=== PATIENT | male | born 1995 | race African-American/Black ===

== ENCOUNTER 2020-01-27 00:54 | Emergency (ER) | payer OTHER, SELFPAY ==
--- NOTE | ~2020-01-27 | CT_ITS ---
EXAMINATION: CT brain wo con DATE: 01/27/2020 03:39 INDICATION: Numbness TECHNIQUE: Computed tomography (CT) of the head was performed without intravenous contrast. Sagittal and coronal reconstructions were performed. The mA was adjusted according to patient size. Iterative reconstruction technique was employed. The dose-length product was 681.00 mGy-cm. COMPARISON: None FINDINGS: Posterior parietal scalp hematoma. No fracture. No acute intracranial hemorrhage, acute infarction or abnormal extra axial fluid collection. Ventricles are normal and symmetric. No mass/mass effect. The orbits, paranasal sinuses and mastoid air cells are normal. IMPRESSION: 1. Normal brain. No acute intracranial process. Reviewed, dictated and finalized at location A.
[2020-01-27 00:58] VITALS: BP 162/99; PULSE 100; RESP 18; TEMP 36.8; O2SAT 97
[2020-01-27 01:27] LABS: Basophils Percent Auto 0.7 % (0.2-1.2); Eosinophils Absolute Auto 0.1 K/mm3 (0-0.3); Eosinophils Percent Auto 2.7 % (0-4.4); Hematocrit 43.1 % (42.0-52.0); Hemoglobin 14.5 g/dL (14.0-18.0); Immature Granulocyte Absolute 0.01 K/mm3 (0.00-0.031); Immature Granulocyte Percent A 0.2 % (0-0.5); Lymphocytes Absolute Auto 0.93 K/mm3 (0.9-3.2); Mean Corpuscular HGB Conc 33.6 g/dl (32-36); Mean Corpuscular Hemoglobin 27.1 pg (26-34); Mean Corpuscular Volume 80.4 fl (80-100); Mean Platelet Volume 11.2 fl (7.4-10.4); Monocytes Absolute Auto 0.5 K/mm3 (0.1-0.6); Monocytes Percent Auto 12.1 % (2.6-8.5); Neutrophils Absolute Auto 2.5 K/mm3 (1.3-6.7); Neutrophils Percent Auto 61.3 % (45.5-73.1); Platelet Count Result 288 k/mm3 (150-375); Red Blood Count 5.36 M/mm3 (4.6-6.20)
--- NOTE | 2020-01-27 01:27 | ED.GENADULT ---
HPI - General Adult General Chief complaint: Extremity Problem,Nontraumatic Stated complaint: Legs tingling and cold Time Seen by Provider: 01/27/20 01:00 Source: RN notes reviewed History of Present Illness HPI narrative: Patient presents emergency department from home for bilateral leg tingling. Patient states starting approximately 10 PM tonight he began to have a tingling sensation in his bilateral lower extremities from the mid farrar down through his feet. He describes a feeling as a feeling of being cold. He states it does not feel like [id number]. He states they tried to place a cover over his legs but continued have the feeling. He denies any weakness of the legs he denies having any fevers or chills or recent illness chest pain shortness of breath abdominal pain back pain bowel or bladder incontinence or any other symptoms. He is able to ambulate with no difficulty and states he does still have feeling in the bilateral legs. Patient states he is a diabetic Related Data Allergies Allergy/AdvReac Type Severity Reaction Status Date / Time No Known Allergies Allergy Unverified 11/29/15 07:15 Review of Systems Review of Systems: Narrative: Gen.: Denies fevers or chills Eyes: Denies eye pain or visual change ENT: Denies congestion Respiratory: Denies shortness of breath or cough CV: Denies chest pain or palpitations GI: Denies abdominal pain nausea, emesis or diarrhea denies bowel or bladder incontinence Musculoskeletal: Denies back pain or muscle pain Neuro: See HPI Skin: Denies rash Except as documented, all other systems reviewed and negative [facility] Past Medical History Medical History (Updated 01/27/20 @ 06:06 by Ibrahima Kelly DO) Diabetes mellitus Social History Social History (Updated 01/27/20 @ 01:28 by Ibrahima Kelly DO) Smoking status: Never smoker Exam Narrative: Exam Narrative: APPEARANCE: No acute distress, nontoxic, resting in bed EYES: EOMI HEENT: Normocephalic, atraumatic, OMM RESPIRATORY: No respiratory distress Clear to auscultation bilaterally with no rhonchi wheezing or rales. CARDIOVASCULAR: Regular rate and rhythm without murmurs rubs or gallops. ABDOMINAL: Soft, nontender, nondistended, no rebound or guarding Back: No midline tenderness to palpation MUSCULOSKELETAl: Moves all extremities. No clubbing, cyanosis or edema. Bilateral dorsalis pedis pulse 2+ NEURO: Awake and alert. Following commands, speech normal, no focal deficits, pinprick sensation intact throughout the bilateral lower extremities with no change in sensation distally muscle strength 5 out of 5 in the bilateral lower extremities SKIN:: Warm, dry. No rashes lesions or abrasions PSYCHIATRIC: Normal affect/mood, Course Course Emergency Course: Discussed Dr. Rodriguez presentation and work-up. At this time feels patient may be discharged to follow-up as an outpatient Patient states symptoms have improved throughout stay in ED Discussed with patient results of workup and diagnosis. Discussed need for follow-up with primary care, proper use of medication, and reasons to return to the emergency department. Patient understands and agrees to current treatment plan Vital Signs Vital signs: Vital Signs Temperature 98.2 F 01/27/20 00:58 Pulse Rate 100 01/27/20 00:58 Respiratory Rate 18 01/27/20 00:58 Blood Pressure 162/99 H 01/27/20 00:58 Pulse Oximetry 97 01/27/20 00:58 Temperature 98.5 F 01/27/20 04:49 Pulse Rate 108 H 01/27/20 04:49 Respiratory Rate 16 01/27/20 04:49 Blood Pressure 130/73 01/27/20 04:49 Pulse Oximetry 100 01/27/20 04:49 Medical Decision Making Vital Signs Vital Signs: Vital Signs Temperature 98.2 F 01/27/20 00:58 Pulse Rate 100 01/27/20 00:58 Respiratory Rate 18 01/27/20 00:58 Blood Pressure 162/99 H 01/27/20 00:58 Pulse Oximetry 97 01/27/20 00:58 Temperature 98.5 F 01/27/20 04:49 Pulse Rate 108 H 01/27/20 04:49 Respiratory
[2020-01-27 01:42] LABS: Anion Gap 10 mmol/L (8-16); Blood Urea Nitrogen 11 mg/dL (9-20); Calcium 9.4 mg/dL (8.4-10.2); Carbon Dioxide 26 mmol/L (22-30); Chloride 104 mmol/L (98-107); Estimated CRCL calculation 101 ml/min; Estimated Glomerular Filt Rate > 60; Glucose 182 mg/dL (75-110); Magnesium 1.7 mg/dL (1.6-2.3); Sodium 140 mmol/L (137-145)
[2020-01-27 03:08] VITALS: BP 134/76; PULSE 110; RESP 18; O2SAT 97
--- NOTE | 2020-01-27 03:13 | PC.NURSE ---
Patient stated he is starting to have a slight FIERRO, ERP notified. Orders received.
[2020-01-27] MEDS: IBUPROFEN 600 MG TABLET PO (03:16)
--- NOTE | 2020-01-27 03:32 | PC.NURSE ---
Patient being taken to CT.
[2020-01-27 04:49] VITALS: BP 130/73; PULSE 108; RESP 16; TEMP 36.9; O2SAT 100
--- NOTE | 2020-01-27 05:19 | PC.NURSE ---
This nurse contacted CT in inquire about patient's CT results. Claudia in CT stated she had the scan sent to be read but is still waiting. Claudia stated that [facility] has had some difficulties today and is experiencing high volumes. Claudia stated that the patient's scan is still waiting to be read. ERP notified.
== END 2020-01-27 06:19 | disposition home or self-care (01) ==
PROVIDERS: Emergency Provider Emergency Medicine
DX: R20.2 Paresthesia of skin (principal); E11.9 Type 2 diabetes mellitus without complications
CPT/HCPCS: 36415; 70450; 80048; 83735; 85025; 99284; A9270

== ENCOUNTER 2020-01-27 21:27 | Emergency (ER) | payer OTHER, SELFPAY ==
--- NOTE | ~2020-01-27 | XR_ITS ---
XR chest 1V portable DATE: 01/27/2020 23:16 INDICATION: Midline chest pain, shortness of breath TECHNIQUE: Portable AP chest on 01/27/2020 at 2317 hours COMPARISON: 06/07/2016 PA and lateral chest FINDINGS: Heart size appears normal. The lungs appear clear of consolidation. No pleural effusion or pulmonary vascular congestion or pneumothorax. Included skeletal structures are unremarkable. IMPRESSION: No active disease Reviewed, dictated and finalized at location A. IMPRESSION: No active disease
[2020-01-27 21:33] VITALS: BP 160/107; PULSE 107; RESP 12; TEMP 38.4; O2SAT 100
--- NOTE | 2020-01-27 21:38 | ECG_ITS ---
Measurements Intervals [place] Rate: 106 P: 57 WV: 149 QRS: 111 QRSD: 93 T: -19 QT: 313 QTc: 417 Interpretive Statements SINUS TACHYCARDIA VENTRICULAR PREMATURE COMPLEX RIGHT AXIS DEVIATION NONSPECIFIC ST ELEVATION IN ANT/HIGH LAT LEADS BORDERLINE ST-T WAVE ABNORMALITY- INF/LAT LEADS ABNORMAL ECG Electronically Signed On 01-28-2020 7:02:33 CDT by Abdi Carpio D.O.
--- NOTE | 2020-01-27 21:47 | ED.SOB ---
HPI - SOB/Dyspnea General Chief Complaint: Shortness of Breath/Dyspnea Stated Complaint: Difficulty breathing, body aches Time Seen by Provider: 01/27/20 21:35 Source: patient Mode of arrival: ambulatory Limitations: no limitations History of Present Illness HPI Narrative: Patient is 24 years old -[place]ames[place] male presents with shortness of breath. Patient got up from sleep 2 hours ago then started walking and noticed that he had shortness of breath. Today patient was running fever up to 101.2, works as a [employer]ENT [employer] at [employer] [employer], got negative COVID-19 test 1-1/2-hour prior to arrival. Patient is telling me that they have 3 cases of positive COVID-19 at the [facility]. Patient was complaining of frontal headache yesterday which comes and goes. Patient denying any coughing, sore throat, new loss of taste or smell. Patient does not smoke, drinks daily, does not use drugs. Related Data Allergies Allergy/AdvReac Type Severity Reaction Status Date / Time No Known Allergies Allergy Unverified 11/29/15 07:15 Review of Systems Review of Systems: Narrative: CONSTITUTIONAL: Denies fever, chills, or sweats. EYES: Denies visual changes, redness, or discharge. ENT: Denies rhinorrhea, congestion, sore throat, or otalgia. CARDIOVASCULAR: Denies chest pain, palpitations, or edema. RESPIRATORY: Denies cough or dyspnea. GASTROINTESTINAL: Denies abdominal pain, nausea, vomiting, or diarrhea. GENITOURINARY: Denies dysuria or hematuria. SKIN: Denies rash or itching. MUSCULOSKELETAL: Denies back pain, joint pain, or myalgia. NEUROLOGIC: Denies headache, numbness, or weakness. PSYCHIATRIC: Denies anxiety or depression. PMFSH Past Medical History Medical History Diabetes mellitus Social History Social History Smoking status: Never smoker Gender identity (if verbalized by the patient): Male Exam Narrative: Exam Narrative: General appearance: Well-developed, well-nourished Skin: Normal color Head: Normocephalic, nontraumatic Eyes: Clear conjunctiva ENT: Oropharynx normal, ears normal, nose normal Neck: Supple, nontender Chest and respiratory: Airway patent, no respiratory distress, no accessory muscle use Heart: Regular rate/rhythm Abdomen: Soft, nontender, no organomegaly, quiet bowel sounds Vascular: Normal peripheral pulses, normal capillary refill. Musculoskeletal: Normal range of motion, nontender back Neurologic: Alert and oriented ?3, LAB ANIMAL TECHNICIAN is normal as tested, no gross motor deficit Course Course Emergency Course: Stable Vital Signs Vital signs: Vital Signs Temperature 38.4 C H 01/27/20 21:33 Pulse Rate 107 H 01/27/20 21:33 Respiratory Rate 12 01/27/20 21:33 Blood Pressure 160/107 H 01/27/20 21:33 Pulse Oximetry 100 01/27/20 21:33 Temperature 38.4 C H 01/27/20 21:33 Pulse Rate 107 H 01/27/20 21:33 Respiratory Rate 12 01/27/20 21:33 Blood Pressure 160/107 H 01/27/20 21:33 Pulse Oximetry 100 01/27/20 21:33 MDM - SOB/Dyspnea MDM Narrative Medical decision making narrative: Patient presents with shortness of breath that started 2-hour prior to arrival to the emergency room. Patient also is running fever. COVID-19 test was -1-1/2-hour prior to arrival to the emergency room. Patient symptoms consistent with viral infection. There is a possibility of false negative COVID-19 test today. Labs, chest x-ray, UA, IV fluid, Tylenol orally. Ordered. Blood work-up showed: Leukopenia which is consistent with viral infection, MAMIE which indicating dehydration, D-dimer within normal limit, EKG on arrival showed sinus tachyca
[2020-01-27 22:09] LABS: Basophils Percent Auto 0.5 % (0.2-1.2); Eosinophils Percent Auto 0.5 % (0-4.4); Hematocrit 43.2 % (42.0-52.0); Hemoglobin 14.5 g/dL (14.0-18.0); Immature Granulocyte Absolute 0.02 K/mm3 (0.00-0.031); Immature Granulocyte Percent A 0.5 % (0-0.5); Lymphocytes Absolute Auto 0.66 K/mm3 (0.9-3.2); Mean Corpuscular HGB Conc 33.6 g/dl (32-36); Mean Corpuscular Hemoglobin 27.3 pg (26-34); Mean Corpuscular Volume 81.4 fl (80-100); Mean Platelet Volume 11.7 fl (7.4-10.4); Monocytes Absolute Auto 0.7 K/mm3 (0.1-0.6); Monocytes Percent Auto 15.7 % (2.6-8.5); Neutrophils Absolute Auto 2.8 K/mm3 (1.3-6.7); Neutrophils Percent Auto 66.8 % (45.5-73.1); Platelet Count Result 268 k/mm3 (150-375); Red Blood Count 5.31 M/mm3 (4.6-6.20); Red Cell Distribution Width 13.2 % (11.5-14.5); White Blood Count 4.1 K/mm3 (4.5-10.0)
[2020-01-27] MEDS: ACETAMINOPHEN 500 MG TABLET 1000 MG PO (22:15)
[2020-01-27] MEDS: SODIUM CHLORIDE 0.9% IV 1,000 ML 999 ML IV CONT (22:16)
[2020-01-27 22:18] LABS: INR 1.1; Prothrombin Time 13.8 Seconds (11.1-14.7)
[2020-01-27 22:19] LABS: Partial Thromboplastin Time 31.1 SECONDS (22.3-36.8)
[2020-01-27 22:21] LABS: D Dimer 0.29 ug/mL (<0.48)
[2020-01-27 22:23] LABS: Alanine Aminotransferase 65 U/L (4-50); Alkaline Phosphatase 90 U/L (38-126); Anion Gap 11 mmol/L (8-16); Aspartate Amino Transferase 63 U/L (17-59); Bilirubin,Total 0.3 mg/dL (0.2-1.3); Blood Urea Nitrogen 15 mg/dL (9-20); CRP 0.7 mg/dL (<1.0); Calcium 9.2 mg/dL (8.4-10.2); Carbon Dioxide 25 mmol/L (22-30); Chloride 101 mmol/L (98-107); Estimated Glomerular Filt Rate > 60; Glucose 257 mg/dL (75-110); Potassium 4.3 mmol/L (3.4-5.0); Sodium 137 mmol/L (137-145)
[2020-01-27 22:28] LABS: Alveolar/Arterial O2 Gradient 30.4 mmHg; Base Excess ABG -1.6 mEq/l (+/-2.0); Fractional Inspired Oxygen 21 %; HCO3 ABG 20.2 mEq/l (22.0-26.0); Modified Allen's Test Pass; Oxygen Content ABG 19.4 %vol (16.0-22.0); Oxygen Saturation ABG 97.4 % (95.0-100.0); Oxyhemoglobin 96.1 % THb (90.0-100.0); PCO2 ABG 27.1 mmHg (35.0-45.0); PO2 ABG 86.9 mmHg (80.0-100.0); PO2 FiO2 Ratio Arterial Blood 4.14 %; Site Drawn RIGHT RADIAL; Total Hemoglobin 14.3 g/dL (12.0-18.0); pH ABG 7.491 (7.350-7.450)
[2020-01-27 22:29] LABS: Device ROOM AIR
[2020-01-27 22:32] LABS: NT Pro B Type Natriuretic Pept 58 PG/ML (5-100); Troponin I < 0.012 ng/mL (0.000-0.034)
[2020-01-27 23:46] VITALS: BP 154/96; PULSE 108; RESP 18; O2SAT 99
[2020-01-28 00:10] LABS: Add Urine Microscopic? YES; Appearance Urine Clear (Clear); Bacteria Urine Trace /hpf; Bilirubin Urine Negative (Negative); Blood Urine Negative (Negative); Color Urine Yellow (Yellow); Glucose Urine UA 2+ mg/dL (Negative); Ketones Urine 1+ mg/dL (Negative); Leukocyte Esterase Ur Negative LEU/UL (Negative); Mucus Urine Rare /lpf; Nitrate Urine Negative (Negative); Protein Urine 3+ mg/dL (Negative); Squamous Epithelial Cell Urine Occasional /hpf (Few)
[2020-01-28 01:08] VITALS: BP 118/68; PULSE 88; RESP 18; O2SAT 99
== END 2020-01-28 01:09 | disposition home or self-care (01) ==
PROVIDERS: Emergency Provider Emergency Medicine
DX: B34.9 Viral infection, unspecified (principal); Z20.828 Contact with and (suspected) exposure to other viral communicable diseases; E11.9 Type 2 diabetes mellitus without complications; R00.0 Tachycardia, unspecified; I49.3 Ventricular premature depolarization; R94.31 Abnormal electrocardiogram [ECG] [EKG]
CPT/HCPCS: 36415; 36600; 71045; 80053; 81001; 82805; 83605; 83880; 84484; 85025; 85380; 85610; 85730; 86140; 87804; 93005; 96360; 99284; A9270; J7030

== ENCOUNTER 2020-02-02 19:23 | Emergency (ER) | payer OTHER, SELFPAY ==
--- NOTE | ~2020-02-02 | CT_ITS ---
EXAMINATION: CT abdomen pelvis w con INDICATION: Abdominal pain and vomiting TECHNIQUE: Computed tomographic images of the abdomen and pelvis were obtained after the administrati on of 100 cc of Omnipaque 350 intravenous contrast. The dose-length product (DLP) was 1303.43 mGy-cm. Automated exposure control and iterative reconstruction technique were employed. COMPARISON: 01/02/2016 FINDINGS: There are patchy airspace opacities of the left lower lobe. A few scattered airspace opacit ies are also seen in the visualized right lower lobe. The heart size is normal. The liver is diffusel y low in attenuation when compared with the spleen, consistent with hepatic steatosis. The spleen, pa ncreas, gallbladder, and adrenal glands are normal. The kidneys are unremarkable. No pathologically e nlarged abdominal or pelvic lymph nodes are identified. There is no free intraperitoneal gas or evide nce of bowel obstruction. The appendix is normal. There is mild bladder wall thickening. A fat-contai luan umbilical hernia is noted. IMPRESSION: 1. Bilateral lower lobe pneumonia, left greater than right. 2. Diffuse hepatic steatosis. Reviewed, dictated and finalized at location A. TICS SPECIALIST
[2020-02-02 19:24] VITALS: BP 127/98; PULSE 125; RESP 15; TEMP 37.1; O2SAT 99
[2020-02-02 19:40] LABS: Basophils Percent Auto 0.4 % (0.2-1.2); Eosinophils Percent Auto 0.2 % (0-4.4); Hemoglobin 15.2 g/dL (12.0-15.0); Immature Granulocyte Absolute 0.02 K/mm3 (0.00-0.031); Immature Granulocyte Percent A 0.4 % (0-0.5); Lymphocytes Absolute Auto 1.23 K/mm3 (0.9-3.2); Lymphocytes Percent Auto 27.3 % (18.3-44.2); Mean Corpuscular HGB Conc 33.8 g/dl (32-36); Mean Corpuscular Hemoglobin 27.1 pg (26-34); Mean Corpuscular Volume 80.4 fl (80-100); Mean Platelet Volume 11.6 fl (7.4-10.4); Monocytes Absolute Auto 0.3 K/mm3 (0.1-0.6); Monocytes Percent Auto 7.6 % (2.6-8.5); Neutrophils Absolute Auto 2.9 K/mm3 (1.3-6.7); Neutrophils Percent Auto 64.1 % (45.5-73.1); Platelet Count Result 247 k/mm3 (150-375); Red Cell Distribution Width 13.1 % (11.5-14.5); White Blood Count 4.5 K/mm3 (4.5-10.0)
[2020-02-02 19:55] LABS: Alanine Aminotransferase 51 U/L (4-35); Alkaline Phosphatase 100 U/L (38-126); Anion Gap 10 mmol/L (8-16); Aspartate Amino Transferase 46 U/L (14-36); Bilirubin,Total 0.4 mg/dL (0.2-1.3); Blood Urea Nitrogen 12 mg/dL (7-17); Calcium 9.2 mg/dL (8.4-10.2); Carbon Dioxide 25 mmol/L (22-30); Chloride 102 mmol/L (98-107); Estimated Glomerular Filt Rate > 60; Glucose 298 mg/dL (65-105); Lipase 100 U/L (23-300); Potassium 4.3 mmol/L (3.4-5.0); Sodium 137 mmol/L (137-145)
[2020-02-02] MEDS: ONDANSETRON INJ 4 MG/2 ML VIAL IV PUSH (19:59)
[2020-02-02] MEDS: SODIUM CHLORIDE 0.9% IV 1,000 ML 999 ML IV CONT ×2 (20:00→21:42)
--- NOTE | 2020-02-02 20:30 | ED.NAVMDI ---
HPI - Nausea/Vomiting/Diarrhea General Chief complaint: Nausea/Vomiting/Diarrhea Stated complaint: vomiting Time Seen by Provider: 02/02/20 19:39 History of Present Illness HPI Narrative: Patient is a 24-year-old male who presents ER with nausea and vomiting. He has been feeling unwell for the last week. Reports he has been having nausea and vomiting as well as some diarrhea. Has some cramping pain that goes to the middle back. No urinary frequency urgency or dysuria. 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 No respiratory symptoms. Patient had fevers earlier in the week but no longer. Related Data Home Medications Medication Instructions Recorded Confirmed insulin regular hum U-500 conc unit SUBCUT 02/02/20 [Humulin R U-500 (Conc) Kwikpen] Allergies Allergy/AdvReac Type Severity Reaction Status Date / Time No Known Allergies Allergy Verified 02/02/20 19:27 Review of Systems Review of Systems: All systems reviewed & are unremarkable except as noted in HPI and below Constitutional: Constitutional: Denies chills, Reports fatigue and Denies fever(s) ENT: Denies nasal congestion and Denies sore throat Respiratory: Respiratory: Denies cough and Denies dyspnea Gastrointestinal: Gastrointestinal: Denies abdominal pain, Reports diarrhea, Reports nausea and Reports vomiting Musculoskeletal: Musculoskeletal: Reports back pain and Denies muscle cramps PMFSH Past Medical History Medical History (Updated 02/02/20 @ 23:10 by Joseluis Liu MD) Diabetes type 2, controlled Surgical History Surgical History (Updated 02/02/20 @ 20:47 by Joseluis Liu MD) No history of previous surgery Social History Social History (Updated 02/02/20 @ 20:47 by Joseluis Liu MD) Smoking status: Never smoker Exam Narrative: Exam Narrative: GENERAL: Well-appearing, well-nourished, and in no acute distress. HEAD: Normocephalic, atraumatic. ENT: Mucous membranes moist. CHEST: Clear to auscultation. No respiratory distress. HEART: Tachycardic and regular. Normal peripheral pulses. ABDOMEN: Soft, nontender, nondistended. EXTREMITIES: Normal range of motion. No edema. SKIN: Warm, dry, no rash. NEURO: Alert and oriented x3. Course Course Emergency Course: Patient informed of results. Will swab for Covid. Discharge with antibiotics and albuterol. Patient verbalized understanding. Tachycardia improved with IV fluids. Vital Signs Vital signs: Vital Signs Temperature 98.7 F 02/02/20 19:24 Pulse Rate 125 H 02/02/20 19:24 Respiratory Rate 15 02/02/20 19:24 Blood Pressure 127/98 H 02/02/20 19:24 Pulse Oximetry 99 02/02/20 19:24 Temperature 98.7 F 02/02/20 19:24 Pulse Rate 116 H 02/02/20 23:05 Respiratory Rate 18 02/02/20 23:05 Blood Pressure 144/100 H 02/02/20 23:05 Pulse Oximetry 99 02/02/20 23:05 MDM - Nausea/Vomiting/Diarrhea Lab Data Result diagrams: 02/02/20 19:35 02/02/20 19:35 Labs: Lab Results 02/02/20 02/02/20 02/02/20 Range/Units 19:35 19:35 22:28 WBC 4.5 (4.5-10.0) K/mm3 RBC 5.60 H (4.2-5.4) M/mm3 Hgb 15.2 H (12.0-15.0) g/dL Hct 45.0 (37.0-47.0) % MCV 80.4 (80-100) fl MCH 27.1 (26-34) pg MCHC 33.8 (32-36) g/dl RDW 13.1 (11.5-14.5) % Plt Count 247 (150-375) k/mm3 MPV 11.6 H (7.4-10.4) fl Immature Gran % (Auto) 0.4 (0-0.5) % Neut % (Auto) 64.1 (45.5-73.1) % Lymph % (Auto) 27.3 (18.3-44.2) % [place] % (Auto) 7.6 (2.6-8.5) % Eos % (Auto) 0.2 (0-4.4) % Baso % (Auto) 0.4 (0.2-1.2) % Lymph # (Auto) 1.23 (0.9-3.2) K/mm3 [place] # (Auto) 0.3 (0.1-0.6) K/mm3 Eos # (Auto) 0.0 (0-0.3) K/mm3 Baso # (Auto) 0.0 (0.0-0.1) K/mm3 Abs Immat Gran (auto) 0.02 (0.00-0.031) K/mm3 Absolute Neuts (auto) 2.9 (1.3-6.7) K/mm3 Absolute Nucleated RBC 0.0 (0.0-0.012) K/mm3 Nucleated R
[2020-02-02 22:00] VITALS: BP 166/95; PULSE 102; RESP 18; O2SAT 99
[2020-02-02 22:39] LABS: Add Urine Microscopic? YES; Appearance Urine Clear (Clear); Bilirubin Urine Negative (Negative); Blood Urine 1+ (Negative); Color Urine Yellow (Yellow); Glucose Urine UA 3+ mg/dL (Negative); Ketones Urine 1+ mg/dL (Negative); Leukocyte Esterase Ur Negative LEU/UL (Negative); Mucus Urine Rare /lpf; Nitrate Urine Negative (Negative); Protein Urine 3+ mg/dL (Negative); Squamous Epithelial Cell Urine Rare /hpf (Few); Urobilinogen Urine Negative mg/dL (<2.0); WBC Urine 0-3 /hpf
[2020-02-02 22:54] LABS: Specific Grav Ur 1.041 (1.001-1.035)
[2020-02-02 23:05] VITALS: BP 144/100; PULSE 116; RESP 18; O2SAT 99
== END 2020-02-02 23:25 | disposition home or self-care (01) ==
PROVIDERS: Emergency Provider Emergency Medicine
DX: J18.9 Pneumonia, unspecified organism (principal); Z20.828 Contact with and (suspected) exposure to other viral communicable diseases; E11.9 Type 2 diabetes mellitus without complications; Z79.4 Long term (current) use of insulin
CPT/HCPCS: 36415; 74177; 80053; 81001; 83690; 85025; 96361; 96374; 99284; J2405; J7030; Q9967

== ENCOUNTER 2020-06-21 08:19 | Emergency (ER) | payer OTHER, SELFPAY ==
[2020-06-21] VITALS (25 sets, daily range): BP systolic 108–138; BP diastolic 62–98; PULSE 74–112; RESP 10–26; TEMP 36.2; O2SAT 99–100
--- NOTE | ~2020-06-21 | XR_ITS ---
EXAMINATION: XR chest 2V DATE: 06/21/2020 08:49 INDICATION: Chest pain TECHNIQUE: PA and lateral views of the chest were obtained. COMPARISON: Chest radiograph dated 01/27/2020 FINDINGS: Lung volumes remain small but clear with no focal airspace opacities, pulmonary edema, pleural effusi on or pneumothorax. The cardiomediastinal silhouette is normal. Chronic minimal anterior wedging of a few mid thoracic vertebral bodies. IMPRESSION: 1. No acute cardiopulmonary disease. Reviewed, dictated and finalized at location A.
--- NOTE | 2020-06-21 08:31 | ECG_ITS ---
Measurements Intervals [place] Rate: 107 P: 55 MD: 148 QRS: 108 QRSD: 100 T: -18 QT: 328 QTc: 439 Interpretive Statements SINUS TACHYCARDIA VENTRICULAR PREMATURE COMPLEX RIGHT AXIS DEVIATION ST-T WAVE ABNORMALITY IN INFERIOR LEADS- CONSIDER ISCHEMIA BASELINE WANDER- I, II, III, AVR, AVF ABNORMAL ECG Electronically Signed On 06-21-2020 16:04:26 CDT by Abdi Carpio D.O.
[2020-06-21 08:40] LABS: Basophils Percent Auto 0.5 % (0.2-1.2); Eosinophils Absolute Auto 0.2 K/mm3 (0-0.3); Eosinophils Percent Auto 3.4 % (0-4.4); Hematocrit 45.8 % (42.0-52.0); Hemoglobin 15.6 g/dL (14.0-18.0); Immature Granulocyte Absolute 0.02 K/mm3 (0.00-0.031); Immature Granulocyte Percent A 0.3 % (0-0.5); Lymphocytes Absolute Auto 2.43 K/mm3 (0.9-3.2); Lymphocytes Percent Auto 41.8 % (18.3-44.2); Mean Corpuscular HGB Conc 34.1 g/dl (32-36); Mean Corpuscular Hemoglobin 27.6 pg (26-34); Mean Corpuscular Volume 80.9 fl (80-100); Mean Platelet Volume 11.5 fl (7.4-10.4); Monocytes Absolute Auto 0.4 K/mm3 (0.1-0.6); Monocytes Percent Auto 7.2 % (2.6-8.5); Neutrophils Absolute Auto 2.7 K/mm3 (1.3-6.7); Neutrophils Percent Auto 46.8 % (45.5-73.1); Platelet Count Result 379 k/mm3 (150-375); Red Blood Count 5.66 M/mm3 (4.6-6.20); Red Cell Distribution Width 13.2 % (11.5-14.5); White Blood Count 5.8 K/mm3 (4.5-10.0)
[2020-06-21 08:40] LABS: Glucose Point of Care 347 (65-105)
[2020-06-21 08:50] LABS: INR 0.9; Prothrombin Time 13.1 Seconds (11.1-14.7)
[2020-06-21 08:51] LABS: Partial Thromboplastin Time 29.4 SECONDS (22.3-36.8)
[2020-06-21 08:52] LABS: Anion Gap 7 mmol/L (8-16); Blood Urea Nitrogen 17 mg/dL (9-20); Calcium 9.2 mg/dL (8.4-10.2); Carbon Dioxide 28 mmol/L (22-30); Chloride 102 mmol/L (98-107); Estimated CRCL calculation 72 ml/min; Estimated Glomerular Filt Rate 59; Glucose 339 mg/dL (75-110); Potassium 4.2 mmol/L (3.4-5.0); Sodium 137 mmol/L (137-145)
[2020-06-21 09:04] LABS: Troponin I < 0.012 ng/mL (0.000-0.034)
[2020-06-21] MEDS: ASPIRIN 81 MG CHEWABLE TABLET 324 MG PO (09:21)
[2020-06-21] MEDS: SODIUM CHLORIDE 0.9% IV 1,000 ML 999 ML IV CONT (09:21)
[2020-06-21] MEDS: NITROGLYCERIN SL 0.4 MG TABLET SUBLINGUAL (09:21)
--- NOTE | 2020-06-21 09:26 | PC.NURSE ---
bp 118/82 chest pressure remains 5/10
[2020-06-21] MEDS: BELLADONNA ALK/PHENOB ELIX 10 ML, MAG HYDROX/ALUMINUM HYD/SIMETH 30 ML, LIDOCAINE HCL 2... PO (10:31)
[2020-06-21 12:16] LABS: Troponin I < 0.012 ng/mL (0.000-0.034)
--- NOTE | 2020-06-21 13:07 | ED.CHESTPAIN ---
HPI - Chest Pain General Chief Complaint: Chest Pain Stated Complaint: chest tightness/sob Time Seen by Provider: 06/21/20 08:24 History of Present Illness HPI narrative: Patient is a 25-year-old male who presents ER with chest tightness after clocking at work. Patient reports he woke up earlier today was having some mild nausea and abdominal discomfort likely related to start a new diabetic medication. Fortunately at work he developed central chest pressure without radiation. Associate with some sweats as well as nausea. No burning going up the back to his throat. No fevers or chills or sweats. He feels like he may have some discomfort with exertion. No cardiac history. Related Data Home Medications Medication Instructions Recorded Confirmed insulin regular hum U-500 conc unit SUBCUT 02/02/20 [Humulin R U-500 (Conc) Kwikpen] lisinopril 40 mg PO DAILY 06/21/20 Allergies Allergy/AdvReac Type Severity Reaction Status Date / Time No Known Allergies Allergy Verified 06/21/20 08:29 Review of Systems Review of Systems: All systems reviewed & are unremarkable except as noted in HPI and below Constitutional: Constitutional: Denies chills, Denies fever(s) and Denies weakness Comments: Sweats ENT: Denies nasal congestion and Denies sore throat Cardiovascular: Cardiovascular: Reports chest pain, Denies rapid heart rate and Denies radiating jaw, neck or arm pain Respiratory: Respiratory: Denies chest congestion, Denies cough, Reports dyspnea and Denies wheezing Gastrointestinal: Gastrointestinal: Reports abdominal pain, Denies heartburn, Denies diarrhea, Reports nausea and Denies vomiting PMFSH Past Medical History Medical History (Updated 06/21/20 @ 13:12 by Joseluis Liu MD) Diabetes type 2, controlled Surgical History Surgical History (Updated 02/02/20 @ 20:47 by Joseluis Liu MD) No history of previous surgery Social History Social History (Updated 02/02/20 @ 20:47 by Joseluis Liu MD) Smoking status: Never smoker Exam Narrative: Exam Narrative: GENERAL: Well-appearing, well-nourished, and in no acute distress. HEAD: Normocephalic, atraumatic. NECK: Supple. CHEST: Clear to auscultation. No respiratory distress. HEART: Tachycardic and regular. Normal peripheral pulses. ABDOMEN: Soft, nontender, nondistended. EXTREMITIES: Normal range of motion. No edema. SKIN: Warm, dry, no rash. NEURO: Alert and oriented x3. PSYCH: Normal mood and affect. Course Course Emergency Course: Chest pain resolved with GI cocktail. 2 set troponin negative. Discharge home. Vital Signs Vital signs: Vital Signs Temperature 97.2 F L 06/21/20 08:24 Pulse Rate 109 H 06/21/20 08:24 Respiratory Rate 20 06/21/20 08:24 Blood Pressure 138/98 H 06/21/20 08:24 Pulse Oximetry 100 06/21/20 08:24 Temperature 97.2 F L 06/21/20 08:24 Pulse Rate 74 06/21/20 12:25 Respiratory Rate 26 H 06/21/20 12:25 Blood Pressure 120/62 06/21/20 12:00 Pulse Oximetry 100 06/21/20 12:25 MDM - Chest Pain Lab Data Result diagrams: 06/21/20 08:33 06/21/20 08:33 Labs: Lab Results 06/21/20 06/21/20 06/21/20 Range/Units 08:33 08:33 08:33 WBC 5.8 (4.5-10.0) K/mm3 RBC 5.66 (4.6-6.20) M/mm3 Hgb 15.6 (14.0-18.0) g/dL Hct 45.8 (42.0-52.0) % MCV 80.9 (80-100) fl MCH 27.6 (26-34) pg MCHC 34.1 (32-36) g/dl RDW 13.2 (11.5-14.5) % Plt Count 379 H D (150-375) k/mm3 MPV 11.5 H (7.4-10.4) fl Immature Gran % (Auto) 0.3 (0-0.5) % Neut % (Auto) 46.8 (45.5-73.1) % Lymph % (Auto) 41.8 (18.3-44.2) % [place] % (Auto) 7.2 (2.6-8.5) % Eos % (Auto) 3.4 (0-4.4) % Baso % (Auto) 0.5 (0.2-1.2) % Lymph # (Auto) 2.43 (0.9-3.2) K/mm3 [place] # (Auto) 0.4 (0.1-0.6) K/mm3 Eos # (Auto) 0.2 (0-0.3) K/mm3 Baso # (Auto) 0.0 (0.0-0.1) K/mm3 Abs Immat Gran (auto) 0.02 (0.00-0.031) K/mm3
== END 2020-06-21 13:23 | disposition home or self-care (01) ==
PROVIDERS: Emergency Provider Emergency Medicine; PCP Family Medicine
DX: R07.89 Other chest pain (principal); K21.9 Gastro-esophageal reflux disease without esophagitis; E11.9 Type 2 diabetes mellitus without complications; Z79.4 Long term (current) use of insulin; R00.0 Tachycardia, unspecified; I49.3 Ventricular premature depolarization; R94.31 Abnormal electrocardiogram [ECG] [EKG]
CPT/HCPCS: 36415; 71046; 80048; 82948; 84484; 85025; 85610; 85730; 93005; 96360; 96361; 99284; A9270; J7030

== ENCOUNTER 2021-11-09 13:58 | Outpatient (CLI) | payer OTHER, SELFPAY ==
--- NOTE | ~2021-11-09 | XR_ITS ---
EXAMINATION: XR chest 2V 11/09/2021 14:22 INDICATION: Shortness of breath. Abnormal PPD test. PROCEDURE: 2 view chest COMPARISON: Comparison to multiple prior studies sequentially, with oldest reviewed study dated 05/2015. FINDINGS: The lungs are clear. The cardiomediastinal silhouette is within normal limits. There are no pleural effusions. There is no pneumothorax suspected. IMPRESSION: 1: NO ACUTE CARDIOPULMONARY DISEASE. Reviewed, dictated and finalized at location A.
== END 2021-11-09 13:59 | disposition home or self-care (01) ==
LOC: ANHIMG 14:05
PROVIDERS: Visit Provider Family Medicine
DX: Z11.1 Encounter for screening for respiratory tuberculosis (principal)
CPT/HCPCS: 71046

== ENCOUNTER 2021-12-26 20:09 | Emergency (ER) | payer OTHER, SELFPAY ==
--- NOTE | ~2021-12-26 | CT_ITS ---
EXAMINATION: CT soft tissue neck w con DATE: 12/27/2021 01:17 INDICATION: Sore throat. Difficulty swallowing. TECHNIQUE: Computed tomography (CT) of the neck was performed with 75 mL Omnipaque-350 intravenous co ntrast. The dose-length product was 567.23 mGy-cm. Automated exposure control and iterative reconstru ction technique were employed. COMPARISON: None FINDINGS: There are enlarged tonsils an adenoids. Mild narrowing of the nasopharynx. No discrete wall ed off fluid collection to suggest abscess. Parapharyngeal spaces are normal. Normal epiglottis. No p revertebral soft tissue abnormality. IMPRESSION: 1. Enlarged tonsils and adenoids, suspicious for tonsillitis. Clinically correlate. No abscess. Reviewed, dictated and finalized at location A. IMPRESSION: 1. Enlarged tonsils and adenoids, suspicious for tonsillitis. Clinically correl ate. No abscess.
[2021-12-26 20:20] VITALS: BP 153/111; PULSE 113; RESP 18; TEMP 36.4; O2SAT 100
[2021-12-26 22:43] LABS: Basophils Absolute Auto 0.1 K/mm3 (0.0-0.1); Basophils Percent Auto 0.7 % (0.2-1.2); Eosinophils Absolute Auto 0.1 K/mm3 (0-0.3); Eosinophils Percent Auto 1.6 % (0-4.4); Hematocrit 37.3 % (42.0-52.0); Hemoglobin 12.3 g/dL (14.0-18.0); Immature Granulocyte Absolute 0.04 K/mm3 (0.00-0.031); Immature Granulocyte Percent A 0.5 % (0-0.5); Lymphocytes Absolute Auto 2.72 K/mm3 (0.9-3.2); Lymphocytes Percent Auto 30.7 % (18.3-44.2); Mean Corpuscular Hemoglobin 27.3 pg (26-34); Mean Corpuscular Volume 82.9 fl (80-100); Mean Platelet Volume 10.4 fl (7.4-10.4); Monocytes Absolute Auto 0.6 K/mm3 (0.1-0.6); Monocytes Percent Auto 6.9 % (2.6-8.5); Neutrophils Absolute Auto 5.3 K/mm3 (1.3-6.7); Neutrophils Percent Auto 59.6 % (45.5-73.1); Platelet Count Result 562 k/mm3 (150-375); Red Cell Distribution Width 12.9 % (11.5-14.5); White Blood Count 8.9 K/mm3 (4.5-10.0)
[2021-12-26 22:57] LABS: Anion Gap 16 mmol/L (8-16); Blood Urea Nitrogen 38 mg/dL (9-20); Calcium 9.5 mg/dL (8.4-10.2); Carbon Dioxide 21 mmol/L (22-30); Chloride 105 mmol/L (98-107); Estimated CRCL calculation 54 ml/min; Estimated Glomerular Filt Rate 41; Glucose 175 mg/dL (65-110); Potassium 4.3 mmol/L (3.4-5.0); Sodium 142 mmol/L (137-145)
--- NOTE | 2021-12-26 23:26 | ED.GENADULT ---
HPI - General Adult General Chief complaint: Unspecified Stated complaint: difficulty swallowing Time Seen by Provider: 12/26/21 22:21 Source: patient Mode of arrival: ambulatory Limitations: no limitations History of Present Illness HPI narrative: This is a 26 year old male that presents to the ER for ongoing sore throat noted over the last couple of weeks. Associated with discomfort upon swallowing. Reports he feels as though his throat is swollen. Denies fever or inability to swallow. Related Data Home Medications Medication Instructions Recorded Confirmed insulin regular hum U-500 conc 500 unit subcut 02/02/20 unit/mL(3 mL) subcut pen (Humulin R U-500 (Conc) Insulin Kwikpen) lisinopril 40 mg tablet 40 mg PO DAILY 06/21/20 Allergies Allergy/AdvReac Type Severity Reaction Status Date / Time No Known Allergies Allergy Verified 12/24/21 11:35 Review of Systems Review of Systems: CONSTITUTIONAL: Denies fever ENT: Reports sore throat All systems reviewed & are unremarkable except as noted in HPI and below PMFSH Past Medical History Medical History (Updated 12/27/21 @ 03:12 by Mel Masters PA-C) Diabetes mellitus Diabetes type 2, controlled Surgical History Surgical History (System 12/24/21 @ 11:35 by Matthew Posadas) No history of previous surgery Social History Social History (System 12/24/21 @ 11:35 by Matthew Posadas) Smoking status: Never smoker Gender identity (if verbalized by the patient): Male Exam Narrative: GENERAL: Well-appearing, well-nourished, and in no acute distress. HEAD: Normocephalic, atraumatic. EYES: EOMI. ENT: Nares clear, no rhinorrhea or epistaxis. Mucous membranes moist. Oropharynx with mild erythema and edema, without exudate or other lesions. NECK: Supple. No adenopathy or masses. CHEST: Clear to auscultation. No respiratory distress. No wheezes rales or rhonchi HEART: Regular rate and rhythm. No murmur heard. Normal peripheral pulses. EXTREMITIES: Normal range of motion. No edema. SKIN: Warm, dry, no rash. NEURO: No focal deficits. Alert and oriented x3. PSYCH: Normal mood and affect Course Vital Signs Vital signs: Vital Signs Temperature 97.6 F 12/26/21 20:20 Pulse Rate 113 H 12/26/21 20:20 Respiratory Rate 18 12/26/21 20:20 Blood Pressure 153/111 H 12/26/21 20:20 Pulse Oximetry 100 12/26/21 20:20 Temperature 97.6 F 12/26/21 20:20 Pulse Rate 113 H 12/26/21 20:20 Respiratory Rate 18 12/26/21 20:20 Blood Pressure 153/111 H 12/26/21 20:20 Pulse Oximetry 100 12/26/21 20:20 Medical Decision Making MDM Narrative Medical decision making narrative: Patient presents to the emergency department for sore throat and difficulty swallowing noted over the last couple of weeks. He is afebrile and nontoxic-appearing. Tachycardic upon arrival, this normalized with IV fluid administration. CBC is without leukocytosis. Does show normocytic anemia with hemoglobin of 12.3. Metabolic panel with evidence of likely acute on chronic kidney dysfunction. His last labs that we have to compare are from June of last year. His creatinine was 1.7 at that time. It is 2.3 today. His BUN is elevated, he does appear to be dry. He was hydrated with 2 L of IV fluids in the ED. Strep screen and monoscreen negative. CT scan of the soft tissue neck shows pharyngitis. No fluid collection. Patient was updated on case findings. I did speak with patient about admission for a possible MAMIE. Patient does not want to stay in the hospital at this time. He does report he has known history of chronic kidney disease and his truck rental manager is getting him a referral to a senior principal process engineer. He also reports he has follow-up with his truck rental manager this week. He was instructed on the importance of close follow-up and repeat blood work. He was given warnings to return to the ER Vital Signs Vital Signs: Vital Signs Temperature 97.6 F 12/26/21 20:20 Pulse R
[2021-12-26 23:33] LABS: Alanine Aminotransferase 17 U/L (6-50); Albumin Level 4.2 g/dL (3.5-5.1); Alkaline Phosphatase 157 U/L (38-126); Aspartate Amino Transferase 22 U/L (17-59); Bilirubin,Total 0.1 mg/dL (0.2-1.3)
[2021-12-26 23:35] LABS: Monoscreen Negative (Negative); Negative Monotest Control Negative (Negative); Positive Monotest Control Positive (Positive)
[2021-12-27] MEDS: SODIUM CHLORIDE 0.9% IV 1,000 ML 999 ML IV CONT ×2 (00:29→02:22)
[2021-12-27 00:50] LABS: Mucus Urine Rare /lpf
[2021-12-27 00:54] LABS: Add Urine Microscopic? YES; Appearance Urine Clear (Clear); Bilirubin Urine Negative (Negative); Blood Urine Trace (Negative); Color Urine Yellow (Yellow); Glucose Urine UA Trace mg/dL (Negative); Ketones Urine Negative (Negative); Leukocyte Esterase Ur Negative LEU/UL (Negative); Nitrate Urine Negative (Negative); Protein Urine 3+ mg/dL (Negative); Urobilinogen Urine 0.2 mg/dL (<2.0)
== END 2021-12-27 03:36 | disposition home or self-care (01) ==
PROVIDERS: Physician Assistant; Emergency Provider Emergency Medicine
DX: E11.22 Type 2 diabetes mellitus with diabetic chronic kidney disease (principal); N18.32 Chronic kidney disease, stage 3b; Z79.4 Long term (current) use of insulin
CPT/HCPCS: 36415; 70491; 80048; 80076; 81001; 85025; 86308; 87081; 87086; 87880; 96360; 96361; 99284; J7030; Q9967

== ENCOUNTER 2022-06-28 11:49 | Outpatient (CLI) | payer OTHER, SELFPAY ==
[2022-06-28 13:26] LABS: Hematocrit 33.2 % (42.0-52.0); Hemoglobin 10.9 g/dL (14.0-18.0); Mean Corpuscular HGB Conc 32.8 g/dl (32-36); Mean Corpuscular Hemoglobin 28.2 pg (26-34); Mean Corpuscular Volume 85.8 fl (80-100); Mean Platelet Volume 11.1 fl (7.4-10.4); Platelet Count Result 435 k/mm3 (150-375); Red Blood Count 3.87 M/mm3 (4.6-6.20); Red Cell Distribution Width 13.5 % (11.5-14.5); White Blood Count 6.7 K/mm3 (4.5-10.0)
[2022-06-28 13:34] LABS: Albumin Level 3.7 g/dL (3.5-5.1); Anion Gap 8 mmol/L (8-16); Blood Urea Nitrogen 47 mg/dL (9-20); Calcium 8.8 mg/dL (8.4-10.2); Carbon Dioxide 25 mmol/L (22-30); Chloride 109 mmol/L (98-107); Creatine Kinase 116 U/L (55-170); Estimated Glomerular Filt Rate 39; Glucose 80 mg/dL (65-110); Phosphorus 4.4 mg/dL (2.5-4.5); Potassium 4.6 mmol/L (3.4-5.0); Sodium 142 mmol/L (137-145)
[2022-06-28 13:38] LABS: Appearance Urine Clear (Clear); Bacteria Urine 2+ /hpf; Bilirubin Urine Negative (Negative); Blood Urine 1+ (Negative); Color Urine Yellow (Yellow); Glucose Urine UA Trace mg/dL (Negative); Ketones Urine Negative (Negative); Leukocyte Esterase Ur Negative LEU/UL (NEGATIVE); Nitrate Urine Negative (Negative); Non Pathogenic Casts 0-2; Protein Urine 4+ mg/dL (Negative); Specific Grav Ur 1.014 (1.001-1.035); Squamous Epithelial Cell Urine None seen /hpf (Few); Urobilinogen Urine 0.2 mg/dL (<2.0); pH Urine 6.5 (5.0-9.0)
[2022-06-28 13:43] LABS: Add Urine Microscopic? YES
[2022-06-28 13:59] LABS: Complement C3 145 mg/dL (88-165)
[2022-06-28 14:01] LABS: Erythrocyte Sedimentation Rate 132 mm/hr (0-20)
[2022-06-28 14:14] LABS: Creatinine Urine 84.4 mg/dL
[2022-06-28 14:18] LABS: Parathyroid Intact 124.5 pg/mL (7.5-53.5)
[2022-06-28 14:49] LABS: Total Protein Urine Random > 600 mg/dL
[2022-07-01 18:51] LABS: Complement Total CH50 >60 U/mL (31-60)
[2022-07-01 20:57] LABS: Kappa\\Lambda Light Chains 2.15 (0.26-1.65); Lambda Light Chain 49.8 mg/L (5.7-26.3)
== END 2022-06-28 11:50 | disposition home or self-care (01) ==
LOC: ANHLAB 11:50
PROVIDERS: Visit Provider Internal Medicine Nephrology
DX: R94.4 Abnormal results of kidney function studies (principal)
CPT/HCPCS: 36415; 80069; 81001; 82550; 82570; 83883; 83970; 84156; 85027; 85652; 86038; 86160; 86162; 86334

== ENCOUNTER 2022-07-06 13:50 | Outpatient (CLI) | payer OTHER, SELFPAY ==
[2022-07-06 16:50] LABS: Total Volume 24 Hour Urine 3500 ml
[2022-07-06 17:01] LABS: Creatinine 24 Hour Urine 2.4 gm/24 (1.0-2.0); Creatinine Urine 70.1 mg/dL; Urea Nitrogen 24 Hour Urine 12.3 G/DAY (12-20)
[2022-07-12 22:52] LABS: Albumin 64 %; Creat 24 Hr 2.63 g/24 h (0.50-2.15); Measured Kappa Chains 9.67 mg/dL (<2.00); Pro/Creat Ratio 4934 mg/g creat (<100); Protein,total, 24 Hr Ur 12985 mg/24 h (<100); Total Kappa Chains 338.45 mg/24 h; Total Lambda Chains 192.5 mg/24 h
== END 2022-07-06 13:51 | disposition home or self-care (01) ==
LOC: ANHLAB 13:51
PROVIDERS: Visit Provider Internal Medicine Nephrology
DX: R94.4 Abnormal results of kidney function studies (principal)
CPT/HCPCS: 81050; 82570; 84540; 86335

== ENCOUNTER 2022-07-16 15:48 | Outpatient (CLI) | payer OTHER, SELFPAY ==
--- NOTE | ~2022-07-16 | US_ITS ---
EXAMINATION: US renal BI DATE: 07/16/2022 16:13 INDICATION: Abnormal kidney function tests TECHNIQUE: Multiple grayscale and Doppler ultrasound images of the kidneys were obtained. COMPARISON: CT, 02/02/2020 FINDINGS: The right kidney measures 11.4 x 6.5 x 5.4 cm. The left kidney measures 11.6 x 6.4 x 4.6 cm . The kidneys demonstrate normal parenchymal echogenicity. There is no hydronephrosis. The bladder is normal. IMPRESSION: 1. Normal kidneys without hydronephrosis. Reviewed, dictated and finalized at location F.
== END 2022-07-16 15:49 | disposition home or self-care (01) ==
LOC: ANHIMG 15:49
PROVIDERS: Visit Provider Internal Medicine Nephrology
DX: R94.4 Abnormal results of kidney function studies (principal)
CPT/HCPCS: 76775

== ENCOUNTER 2022-10-15 19:18 | Emergency (ER) | payer OTHER, SELFPAY ==
[2022-10-15 19:30] VITALS: BP 190/89; PULSE 93; RESP 16; TEMP 37.2; O2SAT 99
--- NOTE | 2022-10-15 19:34 | ED.SKABFB ---
HPI - Skin/Abscess/Foreign Bdy General Chief complaint: Skin/Abscess/Foreign Body Stated complaint: Rash Time Seen by Provider: 10/15/22 19:30 Source: patient Mode of arrival: ambulatory Limitations: no limitations History of Present Illness HPI narrative: Shady is a 27-year-old male patient presenting to the clinic today with complaints of a rash x2 weeks. He reports the rash is itchy and raised on his back. He has had exposure to residence at his work have had scabies. States that the nurses had given him some permethrin cream to try. He states he used x1 dose and the symptoms did not improve and he feels as though something is crawling on his back. He does not have any other rash on his body except for his back. Related Data Home Medications Medication Instructions Recorded Confirmed insulin regular hum U-500 conc 500 unit subcut 02/02/20 07/12/22 unit/mL(3 mL) subcut pen (Humulin R U-500 (Conc) Insulin Kwikpen) atorvastatin 40 mg tablet 40 mg PO DAILY 06/09/22 07/12/22 lisinopril 40 mg tablet 40 mg PO DAILY 06/09/22 07/12/22 Allergies Allergy/AdvReac Type Severity Reaction Status Date / Time No Known Allergies Allergy Verified 10/15/22 19:22 Review of Systems Review of Systems: Pertinent positives per HPI. Patient denies any fever, chills, headache, visual changes, dizziness, cough, runny nose, sore throat, shortness of breath, chest pain, palpitations, nausea, vomiting, diarrhea, constipation, abdominal pain, or any urinary issues. [facility] Past Medical History Medical History Diabetes mellitus Diabetes type 2, controlled Surgical History Surgical History No history of previous surgery Social History Social History Smoking status: Never smoker Alcohol intake: current Alcohol use details: rarely Substance use: never Lack of Transportation: No Lack of Food: Never True Current Housing: I Have Housing Concerned About Future Housing: No Difficulty Paying Gas/Electric Bills: No Difficulty Paying for Meds: No Currently Unemployed: No Education: Associate Degree Difficulty w/ Childcare or Family Care: No Gender identity (if verbalized by the patient): Male Comments At the time of my signature, I reviewed and agree with the nursing past medical, surgical, social, and family history. There is no relevant family history pertinent to the patient complaint. Exam Narrative: General: Well-developed, well nourished, in no apparent distress Head: Normocephalic, atraumatic. Cardio: Regular rate and rhythm, s1 and s2 normal, no murmur appreciated. Resp: Clear to auscultation bilaterally, no rhonchi, rales, wheezing or rubs. Integumentary: [place], warm, and dry, intact without lesion red, raised, itchy rash all over his back. No sign of infection. No rash on his hands, waist, or on the back of the neck. Course Course Emergency Course: Portions of this record may have been created with voice recognition software. Level of Care: Express Care Visit Vital Signs Vital signs: Vital Signs Temperature 37.2 C 10/15/22 19:30 Pulse Rate 93 10/15/22 19:30 Respiratory Rate 16 10/15/22 19:30 Blood Pressure 190/89 H 10/15/22 19:30 Pulse Oximetry 99 10/15/22 19:30 Oxygen Delivery Room Air 10/15/22 19:30 Temperature 37.2 C 10/15/22 19:30 Pulse Rate 93 10/15/22 19:30 Respiratory Rate 16 10/15/22 19:30 Blood Pressure 190/89 H 10/15/22 19:30 Pulse Oximetry 99 10/15/22 19:30 Oxygen Delivery Room Air 10/15/22 19:30 Vital signs reviewed MDM - Skin/Abscess/Foreign Bdy MDM Narrative Medical decision making narrative: At the time visit patient is resting comfortably on the exam table. Place the patient on a prescription for some steroids. Recommend attempting re-application
== END 2022-10-15 19:44 | disposition home or self-care (01) ==
PROVIDERS: Emergency Provider Nurse Practitioner Family
DX: L30.9 Dermatitis, unspecified (principal); E11.9 Type 2 diabetes mellitus without complications; Z79.4 Long term (current) use of insulin
CPT/HCPCS: 99213; G0463

== ENCOUNTER 2023-07-21 07:02 | Emergency (ER) | payer OTHER, SELFPAY ==
--- NOTE | ~2023-07-21 | XR_ITS ---
EXAMINATION: XR chest 1V portable DATE: 07/21/2023 08:20 INDICATION: Racing heart TECHNIQUE: frontal view of the chest was obtained. COMPARISON: None FINDINGS: The lungs are clear with no focal airspace opacities, pulmonary edema, pleural effusion or pneumothor ax. The cardiomediastinal silhouette is normal. Visualized bones and soft tissues are unremarkable. IMPRESSION: 1. Normal chest radiograph. Reviewed, dictated and finalized at location A. IMPRESSION: 1. Normal chest radiograph.
[2023-07-21 07:05] VITALS: BP 194/107; PULSE 105; RESP 20; TEMP 36.6; O2SAT 100
--- NOTE | 2023-07-21 07:23 | ECG_ITS ---
SEE SCANNED COPY FOR CONFIRMED REPORT MTDD
--- NOTE | 2023-07-21 07:47 | ED.ANXIETY ---
HPI - Anxiety General Chief Complaint: Anxiety Stated Complaint: panic attack, heart racing Time Seen by Provider: 07/21/23 07:19 History of Present Illness HPI narrative: 28-year-old male present to the emergency department for evaluation for increased anxiety. Patient states he has had a few episodes of panic attacks. Patient states his 1st was in February, patient had a heated discussion with a friend yesterday and this caused a panic attack and then while patient was at work today he also had increased anxiety with increased heart rate and patient reports he did have some chest pain with this. Upon arrival emergency department patient is still complaining of some substernal chest pain. Patient denies any cardiac history Related Data Home Medications Medication Instructions Recorded Confirmed insulin regular hum U-500 conc 500 unit subcut 02/02/20 07/12/22 unit/mL(3 mL) subcut pen (Humulin R U-500 (Conc) Insulin Kwikpen) atorvastatin 40 mg tablet 40 mg PO DAILY 06/09/22 07/12/22 lisinopril 40 mg tablet 40 mg PO DAILY 06/09/22 07/12/22 Allergies Allergy/AdvReac Type Severity Reaction Status Date / Time No Known Allergies Allergy Verified 07/21/23 07:17 Review of Systems Review of Systems: All systems reviewed & are unremarkable except as noted in HPI and below PMFSH Past Medical History Medical History Diabetes mellitus Diabetes type 2, controlled Surgical History Surgical History No history of previous surgery Social History Social History Smoking status: Never smoker Alcohol intake: current Alcohol use details: rarely Substance use: never Substance use type: does not use Lack of Transportation: No Lack of Food: Never True Current Housing: I Have Housing Concerned About Future Housing: No Difficulty Paying Gas/Electric Bills: No Difficulty Paying for Meds: No Currently Unemployed: No Education: Associate Degree Difficulty w/ Childcare or Family Care: No Gender identity (if verbalized by the patient): Male Exam Narrative: APPEARANCE: Well appearing, no pain, no distress, well-nourished. HEAD: normocephalic, atraumatic. EYES: PERRLA/EOMI, conjunctivae clear. NOSE: Normal no drainage NECK: Supple. No adenopathy, no masses. RESPIRATORY: Airway patent, respirations nonlabored. Clear to auscultation bilaterally, no rales, rhonchi, wheezing. CARDIOVASCULAR: Regular rate and rhythm without murmurs rubs or gallops. ABDOMINAL: Soft, nontender, nondistended, normal bowel sounds MUSCULOSKELETAL: Moves all extremities. Strength/ROM intact, No edema, No calf tenderness. NEURO: Alert. Cranial nerves II through XII intact. Grossly intact SKIN: Warm, dry. Normal Color Course Course Emergency Course: Patient was discharged home with recommendations for outpatient cardiac follow-up Vital Signs Vital signs: Vital Signs Temperature 97.9 F 07/21/23 07:05 Pulse Rate 105 H 07/21/23 07:05 Respiratory Rate 20 07/21/23 07:05 Blood Pressure 194/107 H 07/21/23 07:05 Pulse Oximetry 100 07/21/23 07:05 Oxygen Delivery Room Air 07/21/23 07:05 Temperature 97.9 F 07/21/23 07:05 Pulse Rate 94 07/21/23 10:01 Respiratory Rate 14 07/21/23 10:01 Blood Pressure 182/105 H 07/21/23 10:01 Pulse Oximetry 100 07/21/23 10:01 Oxygen Delivery Room Air 07/21/23 07:05 MDM - Anxiety MDM Narrative Medical decision making narrative: 28-year-old male presented to the emergency department for evaluation after having panic attacks. Patient reports chest pain resolved in the emergency department. Patient is afebrile with no leukocytosis and a hemoglobin of 8.8. Patient does have history of anemia. Patient had negative serial troponins. EKG showed no evidence of acute STEMI. Patient does hav
[2023-07-21 08:00] LABS: Basophils Absolute Auto 0.1 K/mm3 (0.0-0.1); Basophils Percent Auto 0.7 % (0.2-1.2); Eosinophils Absolute Auto 0.2 K/mm3 (0-0.3); Eosinophils Percent Auto 2.2 % (0-4.4); Hematocrit 27.3 % (42.0-52.0); Hemoglobin 8.8 g/dL (14.0-18.0); Immature Granulocyte Absolute 0.02 K/mm3 (0.00-0.031); Immature Granulocyte Percent A 0.3 % (0-0.5); Lymphocytes Absolute Auto 3.16 K/mm3 (0.9-3.2); Lymphocytes Percent Auto 43.8 % (18.3-44.2); Mean Corpuscular HGB Conc 32.2 g/dl (32-36); Mean Corpuscular Hemoglobin 27.9 pg (26-34); Mean Corpuscular Volume 86.7 fl (80-100); Mean Platelet Volume 10.2 fl (7.4-10.4); Monocytes Absolute Auto 0.6 K/mm3 (0.1-0.6); Monocytes Percent Auto 8.3 % (2.6-8.5); Neutrophils Absolute Auto 3.2 K/mm3 (1.3-6.7); Neutrophils Percent Auto 44.7 % (45.5-73.1); Platelet Count Result 478 k/mm3 (150-375); Red Blood Count 3.15 M/mm3 (4.6-6.20); Red Cell Distribution Width 13.6 % (11.5-14.5); White Blood Count 7.2 K/mm3 (4.5-10.0)
[2023-07-21 08:22] LABS: Alanine Aminotransferase 9 U/L (6-50); Albumin Level 3.1 g/dL (3.5-5.1); Alkaline Phosphatase 141 U/L (38-126); Anion Gap 6 mmol/L (4-12); Aspartate Amino Transferase 17 U/L (17-59); Bilirubin,Total 0.3 mg/dL (0.2-1.3); Blood Urea Nitrogen 43 mg/dL (9-20); Calcium 8.4 mg/dL (8.4-10.2); Carbon Dioxide 18 mmol/L (22-30); Chloride 114 mmol/L (98-107); Estimated Glomerular Filt Rate 17; Glucose 190 mg/dL (65-110); Magnesium 1.9 mg/dL (1.6-2.3); Potassium 5.1 mmol/L (3.4-5.0); Sodium 138 mmol/L (137-145)
[2023-07-21] MEDS: LORazepam INJ (*CRX) 2 MG/ML VIAL 0.5 MG IV PUSH (08:25)
[2023-07-21 08:34] LABS: Troponin I 0.029 ng/mL (0.000-0.034)
[2023-07-21 08:52] VITALS: BP 158/99; PULSE 83; RESP 18; O2SAT 100
[2023-07-21] MEDS: SODIUM CHLORIDE 0.9% IV 1,000 ML 999 ML IV CONT (08:56)
[2023-07-21 09:01] VITALS: BP 162/104; PULSE 91; RESP 15; O2SAT 100
[2023-07-21 09:16] VITALS: BP 157/100; PULSE 92; RESP 16; O2SAT 100
[2023-07-21 09:46] VITALS: BP 173/94; PULSE 98; RESP 17; O2SAT 99
[2023-07-21 10:01] VITALS: BP 182/105; PULSE 94; RESP 14; O2SAT 100
--- NOTE | 2023-07-21 10:35 | ECG_ITS ---
SEE SCANNED COPY FOR CONFIRMED REPORT MTDD
[2023-07-21 11:36] LABS: Troponin I 0.031 ng/mL (0.000-0.034)
== END 2023-07-21 12:02 | disposition home or self-care (01) ==
PROVIDERS: Emergency Provider Emergency Medicine
DX: F41.9 Anxiety disorder, unspecified (principal); E11.22 Type 2 diabetes mellitus with diabetic chronic kidney disease; N18.9 Chronic kidney disease, unspecified; R07.9 Chest pain, unspecified; Z79.4 Long term (current) use of insulin
CPT/HCPCS: 36415; 71045; 80053; 83735; 84443; 84484; 85025; 93005; 96361; 96374; 99284; J2060; J7030

== ENCOUNTER 2023-11-29 09:20 | Inpatient (IN) | payer BC, SELFPAY ==
[2023-11-29] VITALS (11 sets, daily range): BP systolic 140–171; BP diastolic 66–94; PULSE 90–140; RESP 17–20; TEMP 37–38.3; O2SAT 96–100; BMI 33.5
--- NOTE | ~2023-11-29 | XR_ITS ---
Clinical Indication: Leukocytosis PA and lateral views of the chest: Comparison: 07/21/2023 Findings: The lungs are clear, without evidence of focal consolidation or pleural effusion. Cardiome diastinal silhouette is within normal limits. Bones and soft tissues are unremarkable. Impression: Normal chest. Reviewed, dictated and finalized at location . Impression: Normal chest.
--- NOTE | ~2023-11-29 | NM_ITS ---
EXAMINATION: NM lung vent and perfusion DATE: 11/30/2023 08:54 INDICATION: Covid like symptoms with basilar lung disease on prior CT. Leukocytosis TECHNIQUE: 20.0 mCi xenon-133 by inhalation and 5.4 mCi Tc-99m MAA by intravenous route. Scintigraph ic images of the chest were obtained. COMPARISON: Chest radiograph dated 11/29/2023 FINDINGS: There is homogeneous radiotracer activity throughout the lungs on the single breath ventilation seque nce. There is relatively homogeneous perfusion throughout the lungs. No discrete ventilation and pe rfusion mismatch is identified. IMPRESSION: 1. Normal study. Very low probability for pulmonary embolism. Reviewed, dictated and finalized at location A.
--- NOTE | ~2023-11-29 | CT_ITS ---
Non-contrast CT scan of the Abdomen and Pelvis Clinical indication: Diarrhea, abnormal blood work Technique: 2.5 mm axial scans were obtained through the abdomen and pelvis without intravenous or or al contrast. Dose reduction technique was used on this scan by utilizing automated exposure control a nd iterative reconstruction technique. The dose-length product (DLP) was 745.09 mGy-cm. COMPARISON: 02/02/2020 Findings: Images through the lung bases reveal area of consolidation at the medial right lower lobe. There is no evidence of renal or ureteral calculi. The kidneys and the ureters are nondilated. There is mild perinephric stranding. The liver, spleen, pancreas, and adrenals appear normal. There are small layering stones and gallblad arnold sludge. There is no aortic aneurysm. There is no evidence of bowel obstruction. Images through the pelvis were performed. There is no evidence of ascites or lymphadenopathy. Urinary bladder unremarkable. No pelvic mass seen. Impression: Medial right lower lobe consolidation, suspicious for pneumonia. Gallbladder stones/sludge. Mild bilateral perinephric stranding, nonspecific. It pyonephritis is of concern, consider contrast e nhanced CT and urinalysis. Reviewed, dictated and finalized at location . Impression: Medial right lower lobe consolidation, suspicious for pneumonia. Gallbladder stones/sludge. Mild bilateral perinephric stranding, nonspecific. It pyonephritis is of concer n, consider contrast enhanced CT and urinalysis.
--- NOTE | ~2023-11-29 | US_ITS ---
EXAMINATION: US renal BI DATE: 12/01/2023 08:32 INDICATION: Acute on chronic kidney disease. TECHNIQUE: Multiple ultrasound grayscale images of the kidneys were obtained. COMPARISON: None. FINDINGS: The right kidney measures 11.3 x 7.0 x 6.9 cm. The left kidney measures 11.7 x 6.9 x 5.7 cm. There is bilateral increased renal cortical echogenicity consistent with medical renal disease. There is no h ydronephrosis in either kidney. No stones identified. The bladder is normal. IMPRESSION: 1. Increased renal cortical echogenicity consistent with medical renal disease. No hydronephrosis. Reviewed, dictated and finalized at location A. IMPRESSION: 1. Increased renal cortical echogenicity consistent with medical renal disease . No hydronephrosis.
--- NOTE | 2023-11-29 09:29 | ECG_ITS ---
Test Date: 2023-11-29 09:36:47 Measurements Intervals [place] Rate: 126 P: 78 W[place]: 145 QRS: 101 QRSD: 95 T: 47 QT: 316 QTc: 459 Interpretive Statements SINUS TACHYCARDIA MARKED RIGHT AXIS DEVIATION [QRS AXIS > 100] NONSPECIFIC T-WAVE ABNORMALITY No previous ECG available for comparison Electronically Signed On 11-29-2023 16:12:22 CDT by Drew Rubio M.D.
[2023-11-29 09:44] LABS: Basophils Absolute Auto 0.1 K/mm3 (0.0-0.1); Basophils Percent Auto 0.3 % (0.2-1.2); Hematocrit 29.2 % (42.0-52.0); Hemoglobin 9.4 g/dL (14.0-18.0); Immature Granulocyte Absolute 0.14 K/mm3 (0.00-0.031); Immature Granulocyte Percent A 0.6 % (0-0.5); Lymphocytes Absolute Auto 3.07 K/mm3 (0.9-3.2); Lymphocytes Percent Auto 13.3 % (18.3-44.2); Mean Corpuscular HGB Conc 32.2 g/dl (32-36); Mean Corpuscular Volume 86.9 fl (80-100); Mean Platelet Volume 10.3 fl (7.4-10.4); Monocytes Absolute Auto 2.1 K/mm3 (0.1-0.6); Monocytes Percent Auto 8.9 % (2.6-8.5); Neutrophils Absolute Auto 17.7 K/mm3 (1.3-6.7); Neutrophils Percent Auto 76.9 % (45.5-73.1); Platelet Count Result 528 k/mm3 (150-375); Red Blood Count 3.36 M/mm3 (4.6-6.20); Red Cell Distribution Width 13.8 % (11.5-14.5); White Blood Count 23.1 K/mm3 (4.5-10.0)
--- NOTE | 2023-11-29 09:54 | PC.NURSE ---
Patient reports he is unable to provide a urine specimen at this time.
--- NOTE | 2023-11-29 09:54 | PC.NURSE ---
Patient states that he has been noncompliant with is hypertension medication d/t starting a new job and insurance.
[2023-11-29 09:58] LABS: Alanine Aminotransferase 15 U/L (6-50); Albumin Level 3.1 g/dL (3.5-5.1); Alkaline Phosphatase 138 U/L (38-126); Anion Gap 11 mmol/L (4-12); Aspartate Amino Transferase 23 U/L (17-59); Bilirubin,Total 0.4 mg/dL (0.2-1.3); Blood Urea Nitrogen 56 mg/dL (9-20); Carbon Dioxide 14 mmol/L (22-30); Chloride 109 mmol/L (98-107); Estimated CRCL calculation 17 ml/min; Estimated Glomerular Filt Rate 12; Glucose 177 mg/dL (65-110); Lipase 56 U/L (23-300); Sodium 134 mmol/L (137-145)
[2023-11-29 10:08] LABS: Troponin I 0.032 ng/mL (0.000-0.034)
[2023-11-29] MEDS: SODIUM CHLORIDE 0.9% IV 1,000 ML 999 ML IV CONT ×2 (10:08→11:48)
--- NOTE | 2023-11-29 10:18 | ED.NAVMDI ---
HPI - Nausea/Vomiting/Diarrhea General Chief complaint: Nausea/Vomiting/Diarrhea Stated complaint: n/v/d Time Seen by Provider: 11/29/23 09:35 Source: patient Mode of arrival: ambulatory Limitations: no limitations History of Present Illness HPI Narrative: Pt is a 28-year-old male who presents to the ER with generalized body aches. He has a history of CKD, HTN, and diabetes. Pt reports his discomfort started this morning. He endorses slight chest pain and chills but denies coughing. Pt reports he does not have a PCP and is not clear as to who manages his chronic conditions. Pt denies SOB, severe headache or tingling/numbness. Related Data Home Medications Medication Instructions Recorded Confirmed insulin regular hum U-500 conc 500 12 unit subcut TID 02/02/20 11/29/23 unit/mL(3 mL) subcut pen (Humulin R U-500 (Conc) Insulin Kwikpen) atorvastatin 40 mg tablet 40 mg PO DAILY 06/09/22 11/29/23 lisinopril 40 mg tablet 80 mg PO DAILY 06/09/22 11/29/23 Allergies Allergy/AdvReac Type Severity Reaction Status Date / Time No Known Allergies Allergy Verified 11/29/23 09:42 Most Recent Cardiac Tests: Chest X-Ray 11/29/23 Labs Most Recent Diabetes Results: Hemoglobin A1c Pending 11/29/23 Glucose 177 mg/dL (65-110) H 11/29/23 Creatinine 6.70 mg/dL (0.7-1.3) H 11/29/23 Blood Urea Nitrogen 56 mg/dL (9-20) H 11/29/23 Sodium 134 mmol/L (137-145) L 11/29/23 Potassium 5.0 mmol/L (3.4-5.0) 11/29/23 Chloride 109 mmol/L (98-107) H 11/29/23 Carbon Dioxide 14 mmol/L (22-30) L 11/29/23 Calcium 8.0 mg/dL (8.4-10.2) L 11/29/23 AST 23 U/L (17-59) 11/29/23 ALT 15 U/L (6-50) 11/29/23 Total Protein 7.0 g/dL (6.3-8.2) 08/27/24 Albumin 3.1 g/dL (3.5-5.1) L 11/29/23 Management Diabetes Management: Date of last retinal or dilated eye exam Date of last comprehensive foot exam Visual inspection previously performed Peripheral pulses previously performed Sensory foot exam previously performed Date of last diabetes education Date of last dental visit Review of Systems Review of Systems: All systems reviewed & are unremarkable except as noted in HPI and below PMFSH Past Medical History Medical History (Updated 11/29/23 @ 19:50 by Clementine Bird APRN) Acute anxiety Chronic kidney disease Diabetes mellitus Diabetes type 2, controlled Hypertension Secondary hyperparathyroidism, not elsewhere classified Surgical History Surgical History (Updated 11/29/23 @ 15:14 by Maral Rees APRN) History of appendectomy No history of previous surgery Family History Family History (Updated 11/29/23 @ 15:18 by Maral Rees APRN) Sibling Tuberculosis Mother Breast cancer Brain aneurysm Other Diabetes mellitus Aunt x2 Social History Social History Smoking status: Never smoker Alcohol intake: current Drinks per week: 1 Alcohol use details: rarely Substance use: never Substance use type: does not use Do You Feel Safe in your Home?: Yes Lack of Transportation: No Lack of Food: Never True Current Housing: I Have Housing Concerned About Future Housing: No Difficulty Paying Gas/Electric Bills: No Difficulty Paying for Meds: No Currently Unemployed: No Education: Associate Degree Difficulty w/ Childcare or Family Care: No Gender identity (if verbalized by the patient): Male Spiritual care concerns: No Exam Narrative: GENERAL: Well-appearing, well-nourished, non-toxic, does appear to be uncomfortable although no acute distress. EYES: PERRL/EOMI, conjunctivae clear bilaterally. NOSE: Normal, no drainage THROAT: Pharynx clear, no exudate. MMs moist. NECK: Supple. No adenopathy, no masses. RESPIRATORY: Airway patent, respirations nonlabored, although sli
[2023-11-29 10:47] LABS: INR 1.3; Prothrombin Time 16.3 Seconds (11.1-14.7)
[2023-11-29 10:48] LABS: Partial Thromboplastin Time 38.1 Seconds (22.3-36.8)
[2023-11-29 10:53] LABS: Influenza A QL RT-PCR Negative (Negative); Influenza B QL RT-PCR Negative (Negative); RSV RNA, RT-PCR Negative (Negative); SARS-CoV-2 RNA PCR Negative (Negative)
[2023-11-29 11:04] LABS: CRP 4.9 mg/dL (<1.0)
[2023-11-29 11:06] LABS: Lactic Acid Reflex 0.7 mmol/L (0.7-2.0)
[2023-11-29 11:17] LABS: Add Urine Microscopic? YES; Appearance Urine Cloudy (Clear); Bacteria Urine None Seen /hpf; Bilirubin Urine Negative (Negative); Blood Urine 1+ (Negative); Color Urine Yellow (Yellow); Glucose Urine UA 1+ mg/dL (Negative); Ketones Urine Trace mg/dL (Negative); Leukocyte Esterase Ur Negative LEU/UL (Negative); Need Manual Microscopic Reviewed; Nitrate Urine Negative (Negative); Protein Urine 4+ mg/dL (Negative); Specific Grav Ur 1.016 (1.001-1.035); Squamous Epithelial Cell Urine Occasional /hpf (Few); Urobilinogen Urine 0.2 mg/dL (<2.0)
[2023-11-29] MEDS: ACETAMINOPHEN 500 MG TABLET 1000 MG PO ×2 (11:53→16:43)
[2023-11-29] MEDS: AZITHROMYCIN 500 MG/NS 250 ML 500 MG/250 ML BAG 250 MG IVPB (12:19)
--- NOTE | 2023-11-29 15:00 | ADMGEN ---
This patient, Shady Lockhart, was admitted to Medical Room 252-01. Patient/family oriented to hospital policies and general routines including ID bracelet, bed and alarms, visiting hours, pain management, procedures, bathroom and other care routines, personal items, smoking policy, room service/diet, and visiting hours. Information on how to activate the Rapid Response Team has been discussed. Patient/Family are encouraged to report perceived risks to care and to ask questions if they do not understand what they are told or what they should do.
--- NOTE | 2023-11-29 15:00 | PM.IMHP ---
H&P: HPI History of Present Illness Date/Time: 11/29/23 15:00 Chief Complaint: Nausea, vomiting, diarrhea Narrative: This is a 28-year-old male with a significant past medical history of hypertension, chronic kidney disease stage 3, type 1 diabetic who presents to the hospital for evaluation nausea, vomiting, diarrhea. He patient states that he started feeling bad yesterday around 3:00 p.m. and started with fever, chills and body aches. He then started having nausea, vomiting, diarrhea and some shortness of breath with substernal chest pain. He also reported flank pain bilaterally yesterday. Patient reports chills, nausea, vomiting, diarrhea, and shortness of breath. He denies any fever, abdominal pain, chest pain. Workup in the hospital included a chest x-ray which was normal. Abdomen/pelvis CT showed medial right lower lobe consolidation suspicious for pneumonia, gallbladder stones/sludge, mild bilateral perinephric stranding with concerns for pyelonephritis. Initial labs showed a white blood cell count 23.1, hemoglobin 9.4, platelet count was 528, sodium 134, bicarb 14, creatinine 6.7, EGFR 12, blood sugar 177, alk-phos 138, troponin 0.032, C reactive protein 4.9. UA was obtained and showed cloudy appearance, 4+ urine protein, 1+ urine glucose, trace ketones, 1+ urine blood, 6-10 urine RBC, 6-10 urine WBC. Respiratory panel was negative for influenza a and B, RSV, COVID. Urine and blood cultures were obtained and are pending. EKG showed sinus tachycardia with right axis deviation, rate of 126, QTC 459. Patient received 2 L of normal saline, Rocephin, azithromycin, and Tylenol while in the ED. Review of Systems Review of Systems: All systems reviewed & are unremarkable except as noted in HPI and below Constitutional: Constitutional: Reports as per HPI and Reports no additional constitutional complaints Eyes: Eyes: Reports as per HPI and Reports no additional eye complaints ENT: Reports system reviewed and no additional complaints, except as documented and Reports as per HPI Cardiovascular: Cardiovascular: Reports as per HPI and Reports no additional cardiovascular complaints Respiratory: Respiratory: Reports as per HPI and Reports no additional respiratory complaints Gastrointestinal: Gastrointestinal: Reports as per HPI and Reports no additional gastrointestinal complaints Genitourinary: Genitourinary: Reports no additional male genitourinary complaints and Reports as per HPI Musculoskeletal: Musculoskeletal: Reports no additional musculoskeletal complaints and Reports as per HPI Integumentary/Breasts: Skin/Breast: Reports system reviewed and no additional complaints, except as docu and Reports as per HPI Neurologic: Reports system reviewed and no additional complaints, except as documented and Reports as per HPI Psychiatric: Psychiatric: Reports no additional psychiatric complaints and Reports as per HPI [facility] Past Medical History Medical History (Updated 11/29/23 @ 15:29 by Maral Rees APRN) Acute anxiety Chronic kidney disease Diabetes mellitus Diabetes type 2, controlled Hypertension Secondary hyperparathyroidism, not elsewhere classified Surgical History Surgical History (Updated 11/29/23 @ 15:14 by Maral Rees APRN) History of appendectomy No history of previous surgery Family History Family History (Updated 11/29/23 @ 15:18 by Maral Rees APRN) Sibling Tuberculosis Mother Breast cancer Brain aneurysm Other Diabetes mellitus Aunt x2 Social History Social History Smoking status: Never smoker Alcohol intake: current Alcohol use details: rarely Substance use: never Substance use type: does not use Lack of Transportation: No Lack of Food: Never True Current Housing: I Have Housing Concerned About Future Housing: No Difficulty Paying Gas/Electric Bills: No Difficulty Paying for Meds: No Current
[2023-11-29] MEDS: VANCOMYCIN 2,000 MG/NS 500 ML 2,000 MG/500 ML BAG 250 MG IVPB (16:42)
[2023-11-29] MEDS: ATORVASTATIN 40 MG TABLET PO (16:43)
[2023-11-29] MEDS: INDAPAMIDE 2.5 MG TABLET PO (16:43)
[2023-11-29] MEDS: dilTIAZem HCL CD 180 MG CAP.24HR PO (16:43)
[2023-11-29 17:08] LABS: Glucose Point of Care 182 mg/dl (65-105)
[2023-11-29 18:20] LABS: MRSA (PCR) NOT DETECTED (NOT DETECTE)
[2023-11-29 19:04] LABS: Thyroid Stimulating Hormone 0.947 uIU/mL (0.465-4.680)
[2023-11-29 19:59] LABS: Glucose Point of Care 196 mg/dl (65-105)
[2023-11-29 20:36] LABS: Hemoglobin A1C 6.2 % (<5.7)
[2023-11-29 20:57] LABS: Toxigenic C. Diff NEGATIVE (NEGATIVE)
[2023-11-29 21:51] LABS: Alanine Aminotransferase 16 U/L (6-50); Albumin Level 2.2 g/dL (3.5-5.1); Alkaline Phosphatase 111 U/L (38-126); Anion Gap 12 mmol/L (4-12); Aspartate Amino Transferase 18 U/L (17-59); Bilirubin,Total < 0.1 mg/dL (0.2-1.3); Blood Urea Nitrogen 56 mg/dL (9-20); Calcium 7.8 mg/dL (8.4-10.2); Carbon Dioxide 13 mmol/L (22-30); Chloride 110 mmol/L (98-107); Estimated CRCL calculation 17 ml/min; Estimated Glomerular Filt Rate 12; Glucose 162 mg/dL (65-110); Potassium 5.1 mmol/L (3.4-5.0); Sodium 135 mmol/L (137-145)
[2023-11-30] VITALS (11 sets, daily range): BP systolic 159–194; BP diastolic 85–102; PULSE 84–123; RESP 12–20; TEMP 36.8–37; O2SAT 100
[2023-11-30] MEDS: INDAPAMIDE 2.5 MG TABLET PO (05:06)
[2023-11-30 05:49] LABS: Basophils Absolute Auto 0.1 K/mm3 (0.0-0.1); Basophils Percent Auto 0.3 % (0.2-1.2); Eosinophils Absolute Auto 0.1 K/mm3 (0-0.3); Eosinophils Percent Auto 0.4 % (0-4.4); Hematocrit 25.6 % (42.0-52.0); Hemoglobin 8.2 g/dL (14.0-18.0); Immature Granulocyte Absolute 0.31 K/mm3 (0.00-0.031); Immature Granulocyte Percent A 1.2 % (0-0.5); Lymphocytes Absolute Auto 5.24 K/mm3 (0.9-3.2); Lymphocytes Percent Auto 20.2 % (18.3-44.2); Mean Corpuscular Hemoglobin 28.5 pg (26-34); Mean Corpuscular Volume 88.9 fl (80-100); Mean Platelet Volume 10.5 fl (7.4-10.4); Monocytes Absolute Auto 1.9 K/mm3 (0.1-0.6); Monocytes Percent Auto 7.5 % (2.6-8.5); Neutrophils Absolute Auto 18.2 K/mm3 (1.3-6.7); Neutrophils Percent Auto 70.4 % (45.5-73.1); Platelet Count Result 438 k/mm3 (150-375); Red Blood Count 2.88 M/mm3 (4.6-6.20); Red Cell Distribution Width 13.8 % (11.5-14.5); White Blood Count 25.9 K/mm3 (4.5-10.0)
[2023-11-30 06:00] LABS: Alanine Aminotransferase 13 U/L (6-50); Albumin Level 2.5 g/dL (3.5-5.1); Alkaline Phosphatase 105 U/L (38-126); Anion Gap 11 mmol/L (4-12); Aspartate Amino Transferase 16 U/L (17-59); Bilirubin,Total < 0.1 mg/dL (0.2-1.3); Blood Urea Nitrogen 57 mg/dL (9-20); Carbon Dioxide 15 mmol/L (22-30); Chloride 111 mmol/L (98-107); Estimated CRCL calculation 17 ml/min; Estimated Glomerular Filt Rate 12; Glucose 103 mg/dL (65-110); Potassium 4.9 mmol/L (3.4-5.0); Sodium 137 mmol/L (137-145)
[2023-11-30 08:17] LABS: Glucose Point of Care 91 mg/dl (65-105)
[2023-11-30] MEDS: ATORVASTATIN 40 MG TABLET PO (08:23)
[2023-11-30] MEDS: ENOXAPARIN 30 MG/0.3 ML SYRINGE SUB-Q (08:24)
--- NOTE | 2023-11-30 09:10 | P.PNIM_ITS ---
Progress Note: A&P Assessment and Plan (1) Sepsis: Code(s): A41.9 - Sepsis, unspecified organism Status: Acute Assessment and Plan: 11/29/23: * Initially meeting sepsis criteria with HR of 140, respiratory rate of 20, WBC 23.1, MAMIE with pyelonephritis, community-acquired pneumonia, UTI * Patient was given 2 L of normal saline while in the ED * Lactic acid 0.7 * UA showing cloudy appearance, 4+ urine protein, 1+ urine glucose, trace ketone, 1+ urine blood, 6-10 urine RBC, 6-10 urine WBC * Blood and urine culture are pending * Patient started on Rocephin, azithromycin, vancomycin * Respiratory panel was negative for influenza a and B, RSV, COVID (2) Acute UTI: Code(s): N39.0 - Urinary tract infection, site not specified Status: Acute Assessment and Plan: 11/29/23: * UA showing cloudy appearance, 4+ urine protein, 1+ urine glucose, trace ketone, 1+ urine blood, 6-10 urine RBC, 6-10 urine WBC * Urine culture pending * Currently on Rocephin for UTI and CAP coverage * Abdomen/pelvis CT showed medial right lower lobe consolidation suspicious for pneumonia, gallbladder stones sludge, mild bilateral perinephric stranding concerning for pyelonephritis. (3) Community acquired pneumonia: Code(s): J18.9 - Pneumonia, unspecified organism Status: Acute Assessment and Plan: 11/29/23: * Chest x-ray was negative * Abdomen/pelvis CT showed medial right lower lobe consolidation suspicious for pneumonia, gallbladder stones sludge, mild bilateral perinephric stranding concerning for pyelonephritis. * Will check MRSA * Check urine strep, urine Legionella, mycoplasma * Blood cultures obtained and are pending * Continue Rocephin, azithromycin, vancomycin * Can deescalate vancomycin if MRSA is negative (4) Acute kidney injury superimposed on chronic kidney disease: Code(s): N17.9 - Acute kidney failure, unspecified; N18.9 - Chronic kidney disease, unspecified Status: Acute Assessment and Plan: 11/29/23: * Patient followed by Dr. Valdes for his chronic kidney disease. He thinks that his chronic kidney disease is stage III * Creatinine 6.70, EGFR 12 * Baseline creatinine 1 year ago was 2.3, EGFR was 39-41 * Nephrology consulted * Patient was given 2 L normal saline while in the ED for hydration * Continue to trend (5) Diabetes mellitus: Code(s): E11.9 - Type 2 diabetes mellitus without complications Status: Chronic Assessment and Plan: 11/29/23: * Blood sugar 177 arrival * Hgb A1C ordered, none to review in [facility] * Accu checks AC/HS * High-dose SSI ordered * Holding home insulin medication * hypoglycemic protocol in place * Diabetic diet ordered (6) Hypertension: Code(s): I10 - Essential (primary) hypertension Status: Chronic Assessment and Plan: 11/29/23: * Blood pressure ranging 143/66 to 171/94 * Continue lisinopril and Indapamide Time Spent With Patient Time with patient: Greater than 35 minutes Subjective Date/time seen: 11/30/23 09:10 Interval history: Nausea, vomiting, diarrhea Narrative retrieved from H/P This is a 28-year-old male with a significant past medical history of hypertension, chronic kidney disease stage 3, type 1 diabetic who presents to the hospital for evaluation nausea, vomiting, diarrhea. He patient states that he started feeling bad yesterday around 3:00 p.m. and started with fever, chills and body aches. He then started having nausea, vomiting, diarrhea and some shortness of breath with substernal chest pain. He also r
--- NOTE | 2023-11-30 09:10 | PM.IMPN ---
Progress Note: A&P Assessment and Plan (1) Sepsis: Code(s): A41.9 - Sepsis, unspecified organism Status: Acute Assessment and Plan: 11/29/23: Initially meeting sepsis criteria with HR of 140, respiratory rate of 20, WBC 23.1, MAMIE with pyelonephritis, community-acquired pneumonia, UTI Patient was given 2 L of normal saline while in the ED Lactic acid 0.7 UA showing cloudy appearance, 4+ urine protein, 1+ urine glucose, trace ketone, 1+ urine blood, 6-10 urine RBC, 6-10 urine WBC Blood and urine culture are pending Patient started on Rocephin, azithromycin, vancomycin Respiratory panel was negative for influenza a and B, RSV, COVID (2) Acute UTI: Code(s): N39.0 - Urinary tract infection, site not specified Status: Acute Assessment and Plan: 11/29/23: UA showing cloudy appearance, 4+ urine protein, 1+ urine glucose, trace ketone, 1+ urine blood, 6-10 urine RBC, 6-10 urine WBC Urine culture pending Currently on Rocephin for UTI and CAP coverage Abdomen/pelvis CT showed medial right lower lobe consolidation suspicious for pneumonia, gallbladder stones sludge, mild bilateral perinephric stranding concerning for pyelonephritis. (3) Community acquired pneumonia: Code(s): J18.9 - Pneumonia, unspecified organism Status: Acute Assessment and Plan: 11/29/23: Chest x-ray was negative Abdomen/pelvis CT showed medial right lower lobe consolidation suspicious for pneumonia, gallbladder stones sludge, mild bilateral perinephric stranding concerning for pyelonephritis. Will check MRSA Check urine strep, urine Legionella, mycoplasma Blood cultures obtained and are pending Continue Rocephin, azithromycin, vancomycin Can deescalate vancomycin if MRSA is negative (4) Acute kidney injury superimposed on chronic kidney disease: Code(s): N17.9 - Acute kidney failure, unspecified; N18.9 - Chronic kidney disease, unspecified Status: Acute Assessment and Plan: 11/29/23: Patient followed by Dr. Valdes for his chronic kidney disease. He thinks that his chronic kidney disease is stage III Creatinine 6.70, EGFR 12 Baseline creatinine 1 year ago was 2.3, EGFR was 39-41 Nephrology consulted Patient was given 2 L normal saline while in the ED for hydration Continue to trend (5) Diabetes mellitus: Code(s): E11.9 - Type 2 diabetes mellitus without complications Status: Chronic Assessment and Plan: 11/29/23: Blood sugar 177 arrival Hgb A1C ordered, none to review in [facility] Accu checks AC/HS High-dose SSI ordered Holding home insulin medication hypoglycemic protocol in place Diabetic diet ordered (6) Hypertension: Code(s): I10 - Essential (primary) hypertension Status: Chronic Assessment and Plan: 11/29/23: Blood pressure ranging 143/66 to 171/94 Continue lisinopril and Indapamide Time Spent With Patient Time with patient: Greater than 35 minutes Subjective Date/time seen: 11/30/23 09:10 Interval history: Nausea, vomiting, diarrhea Narrative retrieved from H/P This is a 28-year-old male with a significant past medical history of hypertension, chronic kidney disease stage 3, type 1 diabetic who presents to the hospital for evaluation nausea, vomiting, diarrhea. He patient states that he started feeling bad yesterday around 3:00 p.m. and started with fever, chills and body aches. He then started having nausea, vomiting, diarrhea and some shortness of breath with substernal chest pain. He also reported flank pain bilaterally yesterday. Patient reports chills, nausea, vomiting, diarrhea, and shortness of breath. He denies any fever, abdominal pain, chest pain. Workup in the hospital included a chest x-ray which was normal. Abdomen/pelvis CT showed medial right lower lobe consolidation suspicious for pneumonia, gallbladder stones/sludge, mild bilateral perinephric stranding with concerns for pyelonephritis. Initial la
[2023-11-30 11:54] LABS: Glucose Point of Care 113 mg/dl (65-105)
[2023-11-30] MEDS: AZITHROMYCIN 500 MG/NS 250 ML 500 MG/250 ML BAG 250 MG IVPB (12:35)
--- NOTE | 2023-11-30 14:10 | PM.CNNEP ---
Assessment and Plan Assessment and plan (1) MAMIE (acute kidney injury): Code(s): N17.9 - Acute kidney failure, unspecified Status: Acute Assessment and Plan: rather than MAMIE/ARF, suspicion falls on progression of CKD: creatinine 2.4 in June 2022 creatinine 4.8 in July 2023 admission creatinine 6.8mg/dl no critical electrolytes or volume overload but metabolic acidosis noted start sodium bicarbonate follow trend of renal function and UOP (2) Stage 3b chronic kidney disease: Code(s): N18.32 - Chronic kidney disease, stage 3b Status: Chronic Assessment and Plan: creatine was 2.3mg/ in June 2022 outpatient evaluation suggest diabetes and HTN as etiology of CKD was following with Dr. Valdes but was lost to follow-up furthermore, compliance with medications is noted to be quite poor (3) Sepsis: Code(s): A41.9 - Sepsis, unspecified organism Status: Acute Assessment and Plan: as noted by tachycardia, mild tachypena, elevated WBC and MAMIE on CKD suspected source = pneumonia + UTI follow culture date on antibiotics follow trend of hemodynamics viral panel negative (4) Acute UTI: Code(s): N39.0 - Urinary tract infection, site not specified Status: Acute Assessment and Plan: admission UA highly suggestive follow urine culture results on antibiotics Abdomen/pelvis CT with mild bilateral perinephric stranding concerning for pyelonephritis (5) Community acquired pneumonia: Code(s): J18.9 - Pneumonia, unspecified organism Status: Acute Assessment and Plan: CXR negative Abdomen/pelvis CT showed medial right lower lobe consolidation suspicious for pneumonia on antibiotic therapy follow culture data follow respiratory status (6) Hypertension: Code(s): I10 - Essential (primary) hypertension Status: Chronic Assessment and Plan: fluctuating since admission compliance with medications in question follow trend of hemodynamics (7) Diabetes mellitus: Code(s): E11.9 - Type 2 diabetes mellitus without complications Status: Chronic Assessment and Plan: follow accu-cheks glycemic control per hospitalists I had a long extensive discussion (greater than 20 min) with the patient regarding his significant renal dysfunction and my concern that this represents progression of disease rather than acute insult. I also voiced my concern that given his significant decline in renal function, he is likely going to require renal replacement therapy / dialysis in the near future and I strongly recommended that he follow-up with Dr. [place] on discharge depending on his clinical course here in the hospital. There is no acute reason for initiation of dialysis at this time but he remains at significant risk. I will continue to follow the patient with you while he remains hospitalized and make further recommendations as deemed necessary. Thank you for allowing me to participate in the care of this patient. History of Present Illness Reason for Consult Consult date: 11/30/23 Reason for consult: acute renal failure (on chronic kidney disease) Chief Complaint Chief complaint: pneumonia History of Present Illness Narrative: The patient is a 28-year-old male with a past medical history as outlined below who presented to [facility] Emergency room with complaints of nausea, vomiting, and diarrhea. The patient states that the he started feeling bad yesterday afternoon and started having subjective fevers, chills, and body aches. Following these symptoms then he started having nausea vomiting diarrhea in association with mild shortness of breath he also stated he had some bilateral flank pain as well. Given these symptoms and the fact that seem like they were getting worse, he presented to the emergency room for further assessment. Workup and evaluation in the em
--- NOTE | 2023-11-30 14:10 | P.CONNP_ITS ---
Assessment and Plan Assessment and plan (1) MAMIE (acute kidney injury): Code(s): N17.9 - Acute kidney failure, unspecified Status: Acute Assessment and Plan: * rather than MAMIE/ARF, suspicion falls on progression of CKD: * creatinine 2.4 in June 2022 * creatinine 4.8 in July 2023 * admission creatinine 6.8mg/dl * no critical electrolytes or volume overload but metabolic acidosis noted * start sodium bicarbonate * follow trend of renal function and UOP (2) Stage 3b chronic kidney disease: Code(s): N18.32 - Chronic kidney disease, stage 3b Status: Chronic Assessment and Plan: * creatine was 2.3mg/ in June 2022 * outpatient evaluation suggest diabetes and HTN as etiology of CKD * was following with Dr. Valdes but was lost to follow-up * furthermore, compliance with medications is noted to be quite poor (3) Sepsis: Code(s): A41.9 - Sepsis, unspecified organism Status: Acute Assessment and Plan: * as noted by tachycardia, mild tachypena, elevated WBC and MAMIE on CKD * suspected source = pneumonia + UTI * follow culture date * on antibiotics * follow trend of hemodynamics * viral panel negative (4) Acute UTI: Code(s): N39.0 - Urinary tract infection, site not specified Status: Acute Assessment and Plan: * admission UA highly suggestive * follow urine culture results * on antibiotics * Abdomen/pelvis CT with mild bilateral perinephric stranding concerning for pyelonephritis (5) Community acquired pneumonia: Code(s): J18.9 - Pneumonia, unspecified organism Status: Acute Assessment and Plan: * CXR negative * Abdomen/pelvis CT showed medial right lower lobe consolidation suspicious for pneumonia * on antibiotic therapy * follow culture data * follow respiratory status (6) Hypertension: Code(s): I10 - Essential (primary) hypertension Status: Chronic Assessment and Plan: * fluctuating since admission * compliance with medications in question * follow trend of hemodynamics (7) Diabetes mellitus: Code(s): E11.9 - Type 2 diabetes mellitus without complications Status: Chronic Assessment and Plan: * follow accu-cheks * glycemic control per hospitalists I had a long extensive discussion (greater than 20 min) with the patient regarding his significant renal dysfunction and my concern that this represents progression of disease rather than acute insult. I also voiced my concern that given his significant decline in renal function, he is likely going to require renal replacement therapy / dialysis in the near future and I strongly recommended that he follow-up with Dr. Valdes on discharge depending on his clinical course here in the hospital. There is no acute reason for initiation of dialysis at this time but he remains at significant risk. I will continue to follow the patient with you while he remains hospitalized and make further recommendations as deemed necessary. Thank you for allowing me to participate in the care of this patient. History of Present Illness Reason for Consult Consult date: 11/30/23 Reason for consult: acute renal failure (on chronic kidney disease) Chief Complaint Chief complaint: pneumonia History of Present Illness Narrative: The patient is a 28-year-old male with a past medical history as outlined below who presented to [facility] Emergency room with complaints of nausea, vomiting, and diarrhea. The patient states that the he
[2023-11-30 16:01] LABS: Glucose Point of Care 106 mg/dl (65-105)
[2023-11-30] MEDS: hydrALAZINE HCL 20 MG/ML VIAL 10 MG IV PUSH (18:51)
[2023-11-30] MEDS: ACETAMINOPHEN 500 MG TABLET 1000 MG PO (18:55)
--- NOTE | 2023-11-30 20:18 | PM.EVENT ---
Event Note Event Note Event Note: Cross Coverage: Patient remains hypertensive despite hydralazine, last BP 190/90. lisinopril and diltiazem a were initially discontinued due to MAMIE, will add back on diltiazem 180 CD q.a.m. Continue to trend renal function and monitor BP.
[2023-11-30 20:29] LABS: Glucose Point of Care 149 mg/dl (65-105)
[2023-11-30] MEDS: dilTIAZem HCL CD 180 MG CAP.24HR PO (20:31)
[2023-11-30 20:38] LABS: Eosinophil Urine None Seen % (None Seen); Urine Eos QC 2nd Tech Confirmed
[2023-11-30 20:53] LABS: Creatinine Urine 54.6 mg/dL; Urea Random Urine 254 MG/DL
[2023-11-30 21:00] LABS: Sodium Urine Random 62 meq/L
[2023-11-30 21:09] LABS: Total Protein Urine Random > 600 mg/dL; Ur Ttl Prot Creatinine Ratio > 10.99 mg/mg (0-0.20)
[2023-11-30] MEDS: HYDROcodone/acetaminophen (*CRX) 5-325 MG TABLET 1 TAB PO (21:54)
[2023-11-30] MEDS: LOPERAMIDE HCL 2 MG CAPSULE PO (22:18)
[2023-12-01] VITALS (14 sets, daily range): BP systolic 141–180; BP diastolic 71–96; PULSE 81–101; RESP 18–20; TEMP 36.1–36.8; O2SAT 96–100
[2023-12-01] MEDS: VANCOMYCIN 1,000 MG/NS 250 ML 1,000 MG/250 ML BAG 250 MG IVPB (05:09)
[2023-12-01 05:48] LABS: Basophils Absolute Auto 0.1 K/mm3 (0.0-0.1); Basophils Percent Auto 0.5 % (0.2-1.2); Eosinophils Absolute Auto 0.4 K/mm3 (0-0.3); Eosinophils Percent Auto 1.9 % (0-4.4); Hematocrit 24.2 % (42.0-52.0); Hemoglobin 7.7 g/dL (14.0-18.0); Immature Granulocyte Absolute 0.33 K/mm3 (0.00-0.031); Immature Granulocyte Percent A 1.8 % (0-0.5); Lymphocytes Absolute Auto 4.71 K/mm3 (0.9-3.2); Lymphocytes Percent Auto 25.8 % (18.3-44.2); Mean Corpuscular HGB Conc 31.8 g/dl (32-36); Mean Corpuscular Hemoglobin 27.9 pg (26-34); Mean Corpuscular Volume 87.7 fl (80-100); Mean Platelet Volume 10.3 fl (7.4-10.4); Monocytes Absolute Auto 1.1 K/mm3 (0.1-0.6); Monocytes Percent Auto 6.2 % (2.6-8.5); Neutrophils Absolute Auto 11.6 K/mm3 (1.3-6.7); Neutrophils Percent Auto 63.8 % (45.5-73.1); Platelet Count Result 460 k/mm3 (150-375); Red Blood Count 2.76 M/mm3 (4.6-6.20); Red Cell Distribution Width 13.9 % (11.5-14.5); White Blood Count 18.2 K/mm3 (4.5-10.0)
[2023-12-01 06:06] LABS: Alanine Aminotransferase 10 U/L (6-50); Albumin Level 2.4 g/dL (3.5-5.1); Alkaline Phosphatase 118 U/L (38-126); Anion Gap 9 mmol/L (4-12); Aspartate Amino Transferase 25 U/L (17-59); Bilirubin,Total 0.1 mg/dL (0.2-1.3); Blood Urea Nitrogen 57 mg/dL (9-20); Carbon Dioxide 16 mmol/L (22-30); Chloride 112 mmol/L (98-107); Creatine Kinase 166 U/L (55-170); Estimated CRCL calculation 16 ml/min; Estimated Glomerular Filt Rate 11; Glucose 90 mg/dL (65-110); Potassium 4.2 mmol/L (3.4-5.0); Sodium 137 mmol/L (137-145)
[2023-12-01 06:46] LABS: Hepatitis B Surface Antigen Negative (Negative)
[2023-12-01 07:04] LABS: Hepatitis B Surface Anti Res Positive
--- NOTE | 2023-12-01 07:54 | P.PNIM_ITS ---
Progress Note: A&P Assessment and Plan (1) Sepsis: Code(s): A41.9 - Sepsis, unspecified organism Status: Acute Assessment and Plan: 11/29/23: * Initially meeting sepsis criteria with HR of 140, respiratory rate of 20, WBC 23.1, MAMIE with pyelonephritis, community-acquired pneumonia, UTI * Patient was given 2 L of normal saline while in the ED * Lactic acid 0.7 * UA showing cloudy appearance, 4+ urine protein, 1+ urine glucose, trace ketone, 1+ urine blood, 6-10 urine RBC, 6-10 urine WBC * Blood and urine culture are pending * Patient started on Rocephin, azithromycin, vancomycin * Respiratory panel was negative for influenza a and B, RSV, COVID * 11/30-wbc improved continue antibiotics (2) Acute UTI: Code(s): N39.0 - Urinary tract infection, site not specified Status: Acute Assessment and Plan: 11/29/23: * UA showing cloudy appearance, 4+ urine protein, 1+ urine glucose, trace ketone, 1+ urine blood, 6-10 urine RBC, 6-10 urine WBC * Urine culture pending * Currently on Rocephin for UTI and CAP coverage * Abdomen/pelvis CT showed medial right lower lobe consolidation suspicious for pneumonia, gallbladder stones sludge, mild bilateral perinephric stranding concerning for pyelonephritis. (3) Community acquired pneumonia: Code(s): J18.9 - Pneumonia, unspecified organism Status: Acute Assessment and Plan: 11/29/23: * Chest x-ray was negative * Abdomen/pelvis CT showed medial right lower lobe consolidation suspicious for pneumonia, gallbladder stones sludge, mild bilateral perinephric stranding concerning for pyelonephritis. * Will check MRSA * Check urine strep, urine Legionella, mycoplasma * Blood cultures obtained and are pending * Continue Rocephin, azithromycin, vancomycin * Can deescalate vancomycin if MRSA is negative * - MRSA negative 11/28 (4) Acute kidney injury superimposed on chronic kidney disease: Code(s): N17.9 - Acute kidney failure, unspecified; N18.9 - Chronic kidney disease, unspecified Status: Acute Assessment and Plan: 11/29/23: * Patient followed by Dr. Valdes for his chronic kidney disease. He thinks that his chronic kidney disease is stage III * Creatinine 6.70, EGFR 12 * Baseline creatinine 1 year ago was 2.3, EGFR was 39-41 * Nephrology consulted * Patient was given 2 L normal saline while in the ED for hydration * Continue to trend 11/30 nephrology consulted- renal ultrasounds ordered, labs- follow recommendations (5) Diabetes mellitus: Code(s): E11.9 - Type 2 diabetes mellitus without complications Status: Chronic Assessment and Plan: 11/29/23: * Blood sugar 177 arrival * Hgb A1C ordered, none to review in [facility] * Accu checks AC/HS * High-dose SSI ordered * Holding home insulin medication * hypoglycemic protocol in place * Diabetic diet ordered (6) Hypertension: Code(s): I10 - Essential (primary) hypertension Status: Chronic Assessment and Plan: 11/29/23: * Blood pressure ranging 143/66 to 171/94 * holding lisinopril as MAMIE * -monitor * 11/30- cardizem was restarted yesterday pm will add amlodipine Time Spent With Patient Time with patient: Greater than 35 minutes Subjective Date/time seen: 12/01/23 07:54 Interval history: Nausea, vomiting, diarrhea Narrative retrieved from H/P This is a 28-year-old male with a significant past medical history of hypertension, chronic kidney disease stage 3, type 1 diabetic who presents to the hospital for evaluation heri
--- NOTE | 2023-12-01 07:54 | PM.IMPN ---
Progress Note: A&P Assessment and Plan (1) Sepsis: Code(s): A41.9 - Sepsis, unspecified organism Status: Acute Assessment and Plan: 11/29/23: Initially meeting sepsis criteria with HR of 140, respiratory rate of 20, WBC 23.1, MAMIE with pyelonephritis, community-acquired pneumonia, UTI Patient was given 2 L of normal saline while in the ED Lactic acid 0.7 UA showing cloudy appearance, 4+ urine protein, 1+ urine glucose, trace ketone, 1+ urine blood, 6-10 urine RBC, 6-10 urine WBC Blood and urine culture are pending Patient started on Rocephin, azithromycin, vancomycin Respiratory panel was negative for influenza a and B, RSV, COVID 11/30-wbc improved continue antibiotics (2) Acute UTI: Code(s): N39.0 - Urinary tract infection, site not specified Status: Acute Assessment and Plan: 11/29/23: UA showing cloudy appearance, 4+ urine protein, 1+ urine glucose, trace ketone, 1+ urine blood, 6-10 urine RBC, 6-10 urine WBC Urine culture pending Currently on Rocephin for UTI and CAP coverage Abdomen/pelvis CT showed medial right lower lobe consolidation suspicious for pneumonia, gallbladder stones sludge, mild bilateral perinephric stranding concerning for pyelonephritis. (3) Community acquired pneumonia: Code(s): J18.9 - Pneumonia, unspecified organism Status: Acute Assessment and Plan: 11/29/23: Chest x-ray was negative Abdomen/pelvis CT showed medial right lower lobe consolidation suspicious for pneumonia, gallbladder stones sludge, mild bilateral perinephric stranding concerning for pyelonephritis. Will check MRSA Check urine strep, urine Legionella, mycoplasma Blood cultures obtained and are pending Continue Rocephin, azithromycin, vancomycin Can deescalate vancomycin if MRSA is negative - MRSA negative 11/28 (4) Acute kidney injury superimposed on chronic kidney disease: Code(s): N17.9 - Acute kidney failure, unspecified; N18.9 - Chronic kidney disease, unspecified Status: Acute Assessment and Plan: 11/29/23: Patient followed by Dr. Valdes for his chronic kidney disease. He thinks that his chronic kidney disease is stage III Creatinine 6.70, EGFR 12 Baseline creatinine 1 year ago was 2.3, EGFR was 39-41 Nephrology consulted Patient was given 2 L normal saline while in the ED for hydration Continue to trend 11/30 nephrology consulted- renal ultrasounds ordered, labs- follow recommendations (5) Diabetes mellitus: Code(s): E11.9 - Type 2 diabetes mellitus without complications Status: Chronic Assessment and Plan: 11/29/23: Blood sugar 177 arrival Hgb A1C ordered, none to review in [facility] Accu checks AC/HS High-dose SSI ordered Holding home insulin medication hypoglycemic protocol in place Diabetic diet ordered (6) Hypertension: Code(s): I10 - Essential (primary) hypertension Status: Chronic Assessment and Plan: 11/29/23: Blood pressure ranging 143/66 to 171/94 holding lisinopril as MAMIE -monitor 11/30- cardizem was restarted yesterday pm will add amlodipine Time Spent With Patient Time with patient: Greater than 35 minutes Subjective Date/time seen: 12/01/23 07:54 Interval history: Nausea, vomiting, diarrhea Narrative retrieved from H/P This is a 28-year-old male with a significant past medical history of hypertension, chronic kidney disease stage 3, type 1 diabetic who presents to the hospital for evaluation nausea, vomiting, diarrhea. He patient states that he started feeling bad yesterday around 3:00 p.m. and started with fever, chills and body aches. He then started having nausea, vomiting, diarrhea and some shortness of breath with substernal chest pain. He also reported flank pain bilaterally yesterday. Patient reports chills, nausea, vomiting, diarrhea, and shortness of breath. He denies any fever, abdominal pain, chest pain. Workup in the hospital included a ches
[2023-12-01] MEDS: dilTIAZem HCL CD 180 MG CAP.24HR PO (08:55)
[2023-12-01] MEDS: ATORVASTATIN 40 MG TABLET PO (08:55)
[2023-12-01] MEDS: ENOXAPARIN 30 MG/0.3 ML SYRINGE SUB-Q (08:55)
[2023-12-01] MEDS: INDAPAMIDE 2.5 MG TABLET PO (08:55)
[2023-12-01 08:59] LABS: Glucose Point of Care 97 mg/dl (65-105)
[2023-12-01] MEDS: AZITHROMYCIN 250 MG TABLET 500 MG PO (09:18)
[2023-12-01 11:50] LABS: Glucose Point of Care 111 mg/dl (65-105)
--- NOTE | 2023-12-01 14:45 | P.PNNP_ITS ---
Progress Note: A&P Assessment and Plan (1) MAMIE (acute kidney injury): Code(s): N17.9 - Acute kidney failure, unspecified Status: Acute Assessment and Plan: * rather than MAMIE/ARF, suspicion falls on progression of CKD: * creatinine 2.4 in June 2022 * creatinine 4.8 in July 2023 * admission creatinine 6.8mg/dl * no critical electrolytes or volume overload but metabolic acidosis noted * start sodium bicarbonate * renal ultrasound c/w CKD * follow trend of renal function and UOP (2) Stage 3b chronic kidney disease: Code(s): N18.32 - Chronic kidney disease, stage 3b Status: Chronic Assessment and Plan: * creatine was 2.3mg/ in June 2022 * outpatient evaluation suggest diabetes and HTN as etiology of CKD * was following with Dr. Valdes but was lost to follow-up * furthermore, compliance with medications is noted to be quite poor (3) Sepsis: Code(s): A41.9 - Sepsis, unspecified organism Status: Acute Assessment and Plan: * as noted by tachycardia, mild tachypena, elevated WBC and MAMIE on CKD * suspected source = pneumonia + UTI * follow culture date * on antibiotics * follow trend of hemodynamics * viral panel negative (4) Acute UTI: Code(s): N39.0 - Urinary tract infection, site not specified Status: Acute Assessment and Plan: * admission UA highly suggestive * urine culture results noted * on antibiotics * Abdomen/pelvis CT with mild bilateral perinephric stranding concerning for pyelonephritis (5) Community acquired pneumonia: Code(s): J18.9 - Pneumonia, unspecified organism Status: Acute Assessment and Plan: * CXR negative * Abdomen/pelvis CT showed medial right lower lobe consolidation suspicious for pneumonia * on antibiotic therapy * follow culture data * follow respiratory status (6) Hypertension: Code(s): I10 - Essential (primary) hypertension Status: Chronic Assessment and Plan: * fluctuating since admission * compliance with medications in question * back on diltiazem and indapamide * follow trend of hemodynamics (7) Diabetes mellitus: Code(s): E11.9 - Type 2 diabetes mellitus without complications Status: Chronic Assessment and Plan: * follow accu-cheks * glycemic control per hospitalists Will continue to follow. Subjective Date/time seen: 12/01/23 14:45 Interval history: Follow-up for acute kidney injury/acute renal failure on chronic kidney disease. No apparent distress noted at the time of my visit; no issues/events overnight other significant fluctuations in blood pressure requiring IV medication administration. Exam Narrative: General: WD/WN male in NAD Heart: normal S1 and S2; no rub Lungs: clear to auscultation Abdomen: soft, nontender, nondistended, positive bowel sounds Extremities: no cyanosis or clubbing; 1+ edema Skin: warm and dry Objective Data Vital Signs Vital Signs: Vital Signs Temp Pulse Resp BP Pulse Ox O2 Del Method FiO2 12/01/23 14:00 97.8 F 92 18 163/83 H 96 12/01/23 12:01 89 12/01/23 10:40 97.9 F 89 18 180/96 H 100 12/01/23 08:03 88 12/01/23 08:55 20 100 Room Air 12/01/23 09:50 100 Room Air 21 12/01/23 06:28 97.9 F 85 20 141/7
--- NOTE | 2023-12-01 14:45 | PM.PNNEP ---
Progress Note: A&P Assessment and Plan (1) MAMIE (acute kidney injury): Code(s): N17.9 - Acute kidney failure, unspecified Status: Acute Assessment and Plan: rather than MAMIE/ARF, suspicion falls on progression of CKD: creatinine 2.4 in June 2022 creatinine 4.8 in July 2023 admission creatinine 6.8mg/dl no critical electrolytes or volume overload but metabolic acidosis noted start sodium bicarbonate renal ultrasound c/w CKD follow trend of renal function and UOP (2) Stage 3b chronic kidney disease: Code(s): N18.32 - Chronic kidney disease, stage 3b Status: Chronic Assessment and Plan: creatine was 2.3mg/ in June 2022 outpatient evaluation suggest diabetes and HTN as etiology of CKD was following with Dr. Valdes but was lost to follow-up furthermore, compliance with medications is noted to be quite poor (3) Sepsis: Code(s): A41.9 - Sepsis, unspecified organism Status: Acute Assessment and Plan: as noted by tachycardia, mild tachypena, elevated WBC and MAMIE on CKD suspected source = pneumonia + UTI follow culture date on antibiotics follow trend of hemodynamics viral panel negative (4) Acute UTI: Code(s): N39.0 - Urinary tract infection, site not specified Status: Acute Assessment and Plan: admission UA highly suggestive urine culture results noted on antibiotics Abdomen/pelvis CT with mild bilateral perinephric stranding concerning for pyelonephritis (5) Community acquired pneumonia: Code(s): J18.9 - Pneumonia, unspecified organism Status: Acute Assessment and Plan: CXR negative Abdomen/pelvis CT showed medial right lower lobe consolidation suspicious for pneumonia on antibiotic therapy follow culture data follow respiratory status (6) Hypertension: Code(s): I10 - Essential (primary) hypertension Status: Chronic Assessment and Plan: fluctuating since admission compliance with medications in question back on diltiazem and indapamide follow trend of hemodynamics (7) Diabetes mellitus: Code(s): E11.9 - Type 2 diabetes mellitus without complications Status: Chronic Assessment and Plan: follow accu-cheks glycemic control per hospitalists Will continue to follow. Subjective Date/time seen: 12/01/23 14:45 Interval history: Follow-up for acute kidney injury/acute renal failure on chronic kidney disease. No apparent distress noted at the time of my visit; no issues/events overnight other significant fluctuations in blood pressure requiring IV medication administration. Exam Narrative: General: WD/WN male in NAD Heart: normal S1 and S2; no rub Lungs: clear to auscultation Abdomen: soft, nontender, nondistended, positive bowel sounds Extremities: no cyanosis or clubbing; 1+ edema Skin: warm and dry Objective Data Vital Signs Vital Signs: Vital Signs Temp Pulse Resp BP Pulse Ox O2 Del Method FiO2 12/01/23 14:00 97.8 F 92 18 163/83 H 96 12/01/23 12:01 89 12/01/23 10:40 97.9 F 89 18 180/96 H 100 12/01/23 08:03 88 12/01/23 08:55 20 100 Room Air 12/01/23 09:50 100 Room Air 21 12/01/23 06:28 97.9 F 85 20 141/75 H 100 12/01/23 04:00 81 12/01/23 00:00 91 11/30/23 20:00 123 H 11/30/23 20:34 Room Air 11/30/23 21:35 98.4 F 99 20 165/96 H 100 11/30/23 20:00 98.6 F 99 20 194/91 H 100 Intake/Output Intake/Output: Intake & Output 11/28/23 11/29/23 11/30/23 12/01/23 23:59 23:59 23:59 23:59 Intake Total 3040 3270 2049 Output Total 400 Balance 2640 3270 2049 Meds/Results Medications: Active Medications Generic Name Dose Route Start Last Admin Trade Name Freq PRN Reason Stop Dose Admin Acetaminophen 1,000 mg 11/29/23 11:51 11/30/23 18:55 Acetaminophen 500 Mg Tablet PO 1,000
[2023-12-01] MEDS: amLODIPine BESYLATE 10 MG TABLET PO (15:22)
[2023-12-01 16:51] LABS: Glucose Point of Care 127 mg/dl (65-105)
[2023-12-01] MEDS: SODIUM BICARBONATE TAB 650 MG TABLET PO (19:22)
[2023-12-01 20:13] LABS: Glucose Point of Care 182 mg/dl (65-105)
--- NOTE | 2023-12-01 20:31 | ECG_ITS ---
Test Date: 2023-12-01 20:43:34 Measurements Intervals [place] Rate: 89 P: 73 MO: 159 QRS: 92 QRSD: 100 T: 69 QT: 381 QTc: 464 Interpretive Statements SINUS RHYTHM BORDERLINE RIGHT AXIS DEVIATION [QRS AXIS > 90] NONSPECIFIC T-WAVE ABNORMALITY BORDERLINE ECG Compared to ECG 11/29/2023 09:36:47 NO DIFFERENCE Electronically Signed On 12-02-2023 07:34:59 CDT by Joel Cowart M.D.
[2023-12-02] VITALS (7 sets, daily range): BP systolic 138–179; BP diastolic 70–93; PULSE 83–103; RESP 12–18; TEMP 36.6–36.8; O2SAT 100
[2023-12-02 05:36] LABS: Basophils Absolute Auto 0.1 K/mm3 (0.0-0.1); Basophils Percent Auto 0.6 % (0.2-1.2); Eosinophils Absolute Auto 0.3 K/mm3 (0-0.3); Eosinophils Percent Auto 2.2 % (0-4.4); Immature Granulocyte Absolute 0.22 K/mm3 (0.00-0.031); Immature Granulocyte Percent A 1.7 % (0-0.5); Lymphocytes Absolute Auto 4.02 K/mm3 (0.9-3.2); Lymphocytes Percent Auto 31.8 % (18.3-44.2); Mean Corpuscular HGB Conc 30.8 g/dl (32-36); Mean Corpuscular Hemoglobin 27.6 pg (26-34); Mean Corpuscular Volume 89.7 fl (80-100); Mean Platelet Volume 10.3 fl (7.4-10.4); Monocytes Absolute Auto 0.9 K/mm3 (0.1-0.6); Monocytes Percent Auto 6.8 % (2.6-8.5); Neutrophils Absolute Auto 7.2 K/mm3 (1.3-6.7); Neutrophils Percent Auto 56.9 % (45.5-73.1); Platelet Count Result 521 k/mm3 (150-375); Red Cell Distribution Width 13.7 % (11.5-14.5); White Blood Count 12.6 K/mm3 (4.5-10.0)
[2023-12-02 05:49] LABS: Alanine Aminotransferase 10 U/L (6-50); Albumin Level 2.7 g/dL (3.5-5.1); Alkaline Phosphatase 95 U/L (38-126); Anion Gap 12 mmol/L (4-12); Aspartate Amino Transferase 17 U/L (17-59); Bilirubin,Total < 0.1 mg/dL (0.2-1.3); Blood Urea Nitrogen 57 mg/dL (9-20); Calcium 7.9 mg/dL (8.4-10.2); Carbon Dioxide 13 mmol/L (22-30); Chloride 111 mmol/L (98-107); Estimated CRCL calculation 18 ml/min; Estimated Glomerular Filt Rate 13; Glucose 96 mg/dL (65-110); Potassium 4.1 mmol/L (3.4-5.0); Sodium 136 mmol/L (137-145)
[2023-12-02 05:53] LABS: Iron 69 ug/dL (49-181)
[2023-12-02 06:03] LABS: Percent Iron Saturation 47 % (20-50)
[2023-12-02 07:51] LABS: Glucose Point of Care 100 mg/dl (65-105)
--- NOTE | 2023-12-02 08:34 | P.PNIM_ITS ---
Progress Note: A&P Assessment and Plan (1) Sepsis: Code(s): A41.9 - Sepsis, unspecified organism Status: Acute Assessment and Plan: 11/29/23: * Initially meeting sepsis criteria with HR of 140, respiratory rate of 20, WBC 23.1, MAMIE with pyelonephritis, community-acquired pneumonia, UTI * Patient was given 2 L of normal saline while in the ED * Lactic acid 0.7 * UA showing cloudy appearance, 4+ urine protein, 1+ urine glucose, trace ketone, 1+ urine blood, 6-10 urine RBC, 6-10 urine WBC * Blood and urine culture are pending * Patient started on Rocephin, azithromycin, vancomycin * Respiratory panel was negative for influenza a and B, RSV, COVID * 11/30-wbc improved continue antibiotics 12/01- wbc down to 12.6, no fever (2) Acute UTI: Code(s): N39.0 - Urinary tract infection, site not specified Status: Acute Assessment and Plan: 11/29/23: * UA showing cloudy appearance, 4+ urine protein, 1+ urine glucose, trace ketone, 1+ urine blood, 6-10 urine RBC, 6-10 urine WBC * Urine culture pending * Currently on Rocephin for UTI and CAP coverage * Abdomen/pelvis CT showed medial right lower lobe consolidation suspicious for pneumonia, gallbladder stones sludge, mild bilateral perinephric stranding concerning for pyelonephritis. (3) Community acquired pneumonia: Code(s): J18.9 - Pneumonia, unspecified organism Status: Acute Assessment and Plan: 11/29/23: * Chest x-ray was negative * Abdomen/pelvis CT showed medial right lower lobe consolidation suspicious for pneumonia, gallbladder stones sludge, mild bilateral perinephric stranding concerning for pyelonephritis. * Will check MRSA * Check urine strep, urine Legionella, mycoplasma * Blood cultures obtained and are pending * Continue Rocephin, azithromycin, vancomycin * Can deescalate vancomycin if MRSA is negative * - MRSA negative 11/28 see plan above (4) Acute kidney injury superimposed on chronic kidney disease: Code(s): N17.9 - Acute kidney failure, unspecified; N18.9 - Chronic kidney disease, unspecified Status: Acute Assessment and Plan: 11/29/23: * Patient followed by Dr. Valdes for his chronic kidney disease. He thinks that his chronic kidney disease is stage III * Creatinine 6.70, EGFR 12 * Baseline creatinine 1 year ago was 2.3, EGFR was 39-41 * Nephrology consulted * Patient was given 2 L normal saline while in the ED for hydration * Continue to trend 11/30 nephrology consulted- renal ultrasounds ordered, labs- follow recommendations (5) Diabetes mellitus: Code(s): E11.9 - Type 2 diabetes mellitus without complications Status: Chronic Assessment and Plan: 11/29/23: * Blood sugar 177 arrival * Hgb A1C ordered, none to review in [facility] * Accu checks AC/HS * High-dose SSI ordered * Holding home insulin medication * hypoglycemic protocol in place * Diabetic diet ordered (6) Hypertension: Code(s): I10 - Essential (primary) hypertension Status: Chronic Assessment and Plan: 11/29/23: * Blood pressure ranging 143/66 to 171/94 * holding lisinopril as MAMIE * -monitor * 11/30- cardizem was restarted yesterday pm will add amlodipine 12/01- 138/70 this am amlodipine 10 mg, diltiazem 180 mg, Hydralazine prn Time Spent With Patient Time with patient: Greater than 35 minutes Subjective Date/time seen: 12/02/23 08:34 Interval history: Follow-up for acute kidney injury/acute renal failure on chronic kidney disease Review of Systems
--- NOTE | 2023-12-02 08:34 | PM.IMPN ---
Progress Note: A&P Assessment and Plan (1) Sepsis: Code(s): A41.9 - Sepsis, unspecified organism Status: Acute Assessment and Plan: 11/29/23: Initially meeting sepsis criteria with HR of 140, respiratory rate of 20, WBC 23.1, MAMIE with pyelonephritis, community-acquired pneumonia, UTI Patient was given 2 L of normal saline while in the ED Lactic acid 0.7 UA showing cloudy appearance, 4+ urine protein, 1+ urine glucose, trace ketone, 1+ urine blood, 6-10 urine RBC, 6-10 urine WBC Blood and urine culture are pending Patient started on Rocephin, azithromycin, vancomycin Respiratory panel was negative for influenza a and B, RSV, COVID 11/30-wbc improved continue antibiotics 12/01- wbc down to 12.6, no fever (2) Acute UTI: Code(s): N39.0 - Urinary tract infection, site not specified Status: Acute Assessment and Plan: 11/29/23: UA showing cloudy appearance, 4+ urine protein, 1+ urine glucose, trace ketone, 1+ urine blood, 6-10 urine RBC, 6-10 urine WBC Urine culture pending Currently on Rocephin for UTI and CAP coverage Abdomen/pelvis CT showed medial right lower lobe consolidation suspicious for pneumonia, gallbladder stones sludge, mild bilateral perinephric stranding concerning for pyelonephritis. (3) Community acquired pneumonia: Code(s): J18.9 - Pneumonia, unspecified organism Status: Acute Assessment and Plan: 11/29/23: Chest x-ray was negative Abdomen/pelvis CT showed medial right lower lobe consolidation suspicious for pneumonia, gallbladder stones sludge, mild bilateral perinephric stranding concerning for pyelonephritis. Will check MRSA Check urine strep, urine Legionella, mycoplasma Blood cultures obtained and are pending Continue Rocephin, azithromycin, vancomycin Can deescalate vancomycin if MRSA is negative - MRSA negative 11/28 see plan above (4) Acute kidney injury superimposed on chronic kidney disease: Code(s): N17.9 - Acute kidney failure, unspecified; N18.9 - Chronic kidney disease, unspecified Status: Acute Assessment and Plan: 11/29/23: Patient followed by Dr. Valdes for his chronic kidney disease. He thinks that his chronic kidney disease is stage III Creatinine 6.70, EGFR 12 Baseline creatinine 1 year ago was 2.3, EGFR was 39-41 Nephrology consulted Patient was given 2 L normal saline while in the ED for hydration Continue to trend 11/30 nephrology consulted- renal ultrasounds ordered, labs- follow recommendations (5) Diabetes mellitus: Code(s): E11.9 - Type 2 diabetes mellitus without complications Status: Chronic Assessment and Plan: 11/29/23: Blood sugar 177 arrival Hgb A1C ordered, none to review in [facility] Accu checks AC/HS High-dose SSI ordered Holding home insulin medication hypoglycemic protocol in place Diabetic diet ordered (6) Hypertension: Code(s): I10 - Essential (primary) hypertension Status: Chronic Assessment and Plan: 11/29/23: Blood pressure ranging 143/66 to 171/94 holding lisinopril as MAMIE -monitor 11/30- cardizem was restarted yesterday pm will add amlodipine 12/01- 138/70 this am amlodipine 10 mg, diltiazem 180 mg, Hydralazine prn Time Spent With Patient Time with patient: Greater than 35 minutes Subjective Date/time seen: 12/02/23 08:34 Interval history: Follow-up for acute kidney injury/acute renal failure on chronic kidney disease Review of Systems Review of Systems: All systems reviewed & are unremarkable except as noted in HPI and below Constitutional: Constitutional: Reports as per HPI and Reports no additional constitutional complaints Eyes: Eyes: Reports as per HPI and Reports no additional eye complaints ENT: Reports system reviewed and no additional complaints, except as documented and Reports as per HPI Cardiovascular: Cardiovascular: Reports as per HPI and Reports no additional cardiovascular complaints
[2023-12-02] MEDS: amLODIPine BESYLATE 10 MG TABLET PO (08:36)
[2023-12-02] MEDS: INDAPAMIDE 2.5 MG TABLET PO (08:36)
[2023-12-02] MEDS: ATORVASTATIN 40 MG TABLET PO (08:36)
[2023-12-02] MEDS: dilTIAZem HCL CD 180 MG CAP.24HR PO (08:36)
[2023-12-02] MEDS: AZITHROMYCIN 250 MG TABLET 500 MG PO (08:36)
[2023-12-02] MEDS: SODIUM BICARBONATE TAB 650 MG TABLET 1300 MG PO (08:37)
[2023-12-02] MEDS: ENOXAPARIN 30 MG/0.3 ML SYRINGE SUB-Q (08:37)
[2023-12-02 12:00] LABS: Glucose Point of Care 134 mg/dl (65-105)
--- NOTE | 2023-12-02 12:57 | P.DS_ITS ---
DS: Admitting Diagnosis Discharge Date 12/01 Admitting Diagnosis n/v/d DS: Discharge Diagnosis Discharge Diagnosis (1) Sepsis: Code(s): A41.9 - Sepsis, unspecified organism Status: Acute Assessment and Plan: 11/29/23: * Initially meeting sepsis criteria with HR of 140, respiratory rate of 20, WBC 23.1, MAMIE with pyelonephritis, community-acquired pneumonia, UTI * Patient was given 2 L of normal saline while in the ED * Lactic acid 0.7 * UA showing cloudy appearance, 4+ urine protein, 1+ urine glucose, trace ketone, 1+ urine blood, 6-10 urine RBC, 6-10 urine WBC * Blood and urine culture are pending * Patient started on Rocephin, azithromycin, vancomycin * Respiratory panel was negative for influenza a and B, RSV, COVID * 11/30-wbc improved continue antibiotics 12/01- wbc down to 12.6, no fever (2) Acute UTI: Code(s): N39.0 - Urinary tract infection, site not specified Status: Acute Assessment and Plan: 11/29/23: * UA showing cloudy appearance, 4+ urine protein, 1+ urine glucose, trace ketone, 1+ urine blood, 6-10 urine RBC, 6-10 urine WBC * Urine culture pending * Currently on Rocephin for UTI and CAP coverage * Abdomen/pelvis CT showed medial right lower lobe consolidation suspicious for pneumonia, gallbladder stones sludge, mild bilateral perinephric stranding concerning for pyelonephritis. (3) Community acquired pneumonia: Code(s): J18.9 - Pneumonia, unspecified organism Status: Acute Assessment and Plan: 11/29/23: * Chest x-ray was negative * Abdomen/pelvis CT showed medial right lower lobe consolidation suspicious for pneumonia, gallbladder stones sludge, mild bilateral perinephric stranding concerning for pyelonephritis. * Will check MRSA * Check urine strep, urine Legionella, mycoplasma * Blood cultures obtained and are pending * Continue Rocephin, azithromycin, vancomycin * Can deescalate vancomycin if MRSA is negative * - MRSA negative 11/28 see plan above (4) Acute kidney injury superimposed on chronic kidney disease: Code(s): N17.9 - Acute kidney failure, unspecified; N18.9 - Chronic kidney disease, unspecified Status: Acute Assessment and Plan: 8/27/24: * Patient followed by Dr. Valdes for his chronic kidney disease. He thinks that his chronic kidney disease is stage III * Creatinine 6.70, EGFR 12 * Baseline creatinine 1 year ago was 2.3, EGFR was 39-41 * Nephrology consulted * Patient was given 2 L normal saline while in the ED for hydration * Continue to trend 11/30 nephrology consulted- renal ultrasounds ordered, labs- follow recommendations (5) Diabetes mellitus: Code(s): E11.9 - Type 2 diabetes mellitus without complications Status: Chronic Assessment and Plan: 11/29/23: * Blood sugar 177 arrival * Hgb A1C ordered, none to review in [facility] * Accu checks AC/HS * High-dose SSI ordered * Holding home insulin medication * hypoglycemic protocol in place * Diabetic diet ordered (6) Hypertension: Code(s): I10 - Essential (primary) hypertension Status: Chronic Assessment and Plan: 11/29/23: * Blood pressure ranging 143/66 to 171/94 * holding lisinopril as MAMIE * -monitor * 11/30- cardizem was restarted yesterday pm will add amlodipine 12/01- 138/70 this am amlodipine 10 mg, diltiazem 180 mg, Hydralazine prn DS: Summary Hospital Course Hospital Course: Nausea, vomiting, diarrhea Narrative retrieved from H/P This is a 28-year-old male with a significant past m
--- NOTE | 2023-12-02 12:57 | PM.DS ---
DS: Admitting Diagnosis Discharge Date 12/01 Admitting Diagnosis n/v/d DS: Discharge Diagnosis Discharge Diagnosis (1) Sepsis: Code(s): A41.9 - Sepsis, unspecified organism Status: Acute Assessment and Plan: 11/29/23: Initially meeting sepsis criteria with HR of 140, respiratory rate of 20, WBC 23.1, MAMIE with pyelonephritis, community-acquired pneumonia, UTI Patient was given 2 L of normal saline while in the ED Lactic acid 0.7 UA showing cloudy appearance, 4+ urine protein, 1+ urine glucose, trace ketone, 1+ urine blood, 6-10 urine RBC, 6-10 urine WBC Blood and urine culture are pending Patient started on Rocephin, azithromycin, vancomycin Respiratory panel was negative for influenza a and B, RSV, COVID 11/30-wbc improved continue antibiotics 12/01- wbc down to 12.6, no fever (2) Acute UTI: Code(s): N39.0 - Urinary tract infection, site not specified Status: Acute Assessment and Plan: 11/29/23: UA showing cloudy appearance, 4+ urine protein, 1+ urine glucose, trace ketone, 1+ urine blood, 6-10 urine RBC, 6-10 urine WBC Urine culture pending Currently on Rocephin for UTI and CAP coverage Abdomen/pelvis CT showed medial right lower lobe consolidation suspicious for pneumonia, gallbladder stones sludge, mild bilateral perinephric stranding concerning for pyelonephritis. (3) Community acquired pneumonia: Code(s): J18.9 - Pneumonia, unspecified organism Status: Acute Assessment and Plan: 11/29/23: Chest x-ray was negative Abdomen/pelvis CT showed medial right lower lobe consolidation suspicious for pneumonia, gallbladder stones sludge, mild bilateral perinephric stranding concerning for pyelonephritis. Will check MRSA Check urine strep, urine Legionella, mycoplasma Blood cultures obtained and are pending Continue Rocephin, azithromycin, vancomycin Can deescalate vancomycin if MRSA is negative - MRSA negative 11/28 see plan above (4) Acute kidney injury superimposed on chronic kidney disease: Code(s): N17.9 - Acute kidney failure, unspecified; N18.9 - Chronic kidney disease, unspecified Status: Acute Assessment and Plan: 11/29/23: Patient followed by Dr. Valdes for his chronic kidney disease. He thinks that his chronic kidney disease is stage III Creatinine 6.70, EGFR 12 Baseline creatinine 1 year ago was 2.3, EGFR was 39-41 Nephrology consulted Patient was given 2 L normal saline while in the ED for hydration Continue to trend 11/30 nephrology consulted- renal ultrasounds ordered, labs- follow recommendations (5) Diabetes mellitus: Code(s): E11.9 - Type 2 diabetes mellitus without complications Status: Chronic Assessment and Plan: 11/29/23: Blood sugar 177 arrival Hgb A1C ordered, none to review in [facility] Accu checks AC/HS High-dose SSI ordered Holding home insulin medication hypoglycemic protocol in place Diabetic diet ordered (6) Hypertension: Code(s): I10 - Essential (primary) hypertension Status: Chronic Assessment and Plan: 11/29/23: Blood pressure ranging 143/66 to 171/94 holding lisinopril as MAMIE -monitor 11/30- cardizem was restarted yesterday pm will add amlodipine 12/01- 138/70 this am amlodipine 10 mg, diltiazem 180 mg, Hydralazine prn DS: Summary Hospital Course Hospital Course: Nausea, vomiting, diarrhea Narrative retrieved from H/P This is a 28-year-old male with a significant past medical history of hypertension, chronic kidney disease stage 3, type 1 diabetic who presents to the hospital for evaluation nausea, vomiting, diarrhea. He patient states that he started feeling bad yesterday around 3:00 p.m. and started with fever, chills and body aches. He then started having nausea, vomiting, diarrhea and some shortness of breath with substernal chest pain. He also reported flank pain bilaterally yesterday. Patient reports chills, nausea, vomiting, diarrhea,
[2023-12-02] MEDS: EPOETIN ALFA 20,000 UNITS/ML VIAL 20000 UNITS SUB-Q (13:53)
[2023-12-02 22:08] LABS: Pneumococcal Antigen Urine DETECTED
[2023-12-03 14:08] LABS: Anti Glomerular Basement Memb <1.0 AI
[2023-12-07 03:49] LABS: Hepatitis B Core Ab Total NON-REACTIVE (NON-REACTIVE)
[2023-12-07 10:18] LABS: ANCA Screen NEGATIVE (NEGATIVE)
[2023-12-08 11:29] LABS: Source NG
[2023-12-09 03:49] LABS: Legionella pneumophila Ag Ur NOT DETECTED
== END 2023-12-02 14:30 | disposition home or self-care (01) | DRG 871 ==
LOC: ANHED 11:09 → ANH2MED 14:15
PROVIDERS: Internal Medicine Nephrology; Nurse Practitioner Acute Care; Student in an Organized Health Care Education/Training Program; Admitting Provider Family Medicine; Emergency Provider Registered Nurse; Visit Provider Nurse Practitioner
DX: A41.9 Sepsis, unspecified organism (principal); J18.9 Pneumonia, unspecified organism; N17.9 Acute kidney failure, unspecified; N25.81 Secondary hyperparathyroidism of renal origin; N10 Acute pyelonephritis; I12.9 Hypertensive chronic kidney disease with stage 1 through stage 4 chronic kidney disease, or unspecified chronic kidney disease; N18.30 Chronic kidney disease, stage 3 unspecified; E10.22 Type 1 diabetes mellitus with diabetic chronic kidney disease; K80.20 Calculus of gallbladder without cholecystitis without obstruction; Z20.822 Contact with and (suspected) exposure to COVID-19; Z90.49 Acquired absence of other specified parts of digestive tract
CPT/HCPCS: 36415; 71046; 74176; 76775; 78582; 80053; 80202; 81001; 81050; 82550; 82570; 82728; 82948; 83036; 83520; 83540; 83550; 83605; 83690; 84156; 84300; 84443; 84484; 84540; 85025; 85380; 85610; 85730; 85999; 86036; 86140; 86704; 86706; 87040; 87077; 87086; 87088; 87340; 87449; 87493; 87581; 87637; 87641; 87899; 93005; 96361; 96365; 96366; 96367; 96372; 99285; A9270; A9540; A9558; G0378; J0360; J0456; J0696; J1650; J3370; J7030; Q4081

== ENCOUNTER 2024-01-28 10:52 | Outpatient (CLI) | payer BC, SELFPAY ==
[2024-01-28 11:37] LABS: Hematocrit 31.8 % (42.0-52.0); Mean Corpuscular HGB Conc 31.4 g/dl (32-36); Mean Corpuscular Hemoglobin 27.2 pg (26-34); Mean Corpuscular Volume 86.6 fl (80-100); Mean Platelet Volume 10.5 fl (7.4-10.4); Platelet Count Result 472 k/mm3 (150-375); Red Blood Count 3.67 M/mm3 (4.6-6.20); White Blood Count 8.3 K/mm3 (4.5-10.0)
[2024-01-28 11:52] LABS: Albumin Level 3.2 g/dL (3.5-5.1); Anion Gap 9 mmol/L (4-12); Blood Urea Nitrogen 54 mg/dL (9-20); Calcium 8.1 mg/dL (8.4-10.2); Carbon Dioxide 17 mmol/L (22-30); Chloride 114 mmol/L (98-107); Estimated Glomerular Filt Rate 11; Glucose 105 mg/dL (65-110); Phosphorus 6.8 mg/dL (2.5-4.5); Potassium 4.8 mmol/L (3.4-5.0); Sodium 140 mmol/L (137-145)
[2024-01-28 12:00] LABS: Parathyroid Intact 584.8 pg/mL (14.5-75.2)
[2024-01-28 12:28] LABS: Total Protein Urine Random > 600 mg/dL; Ur Ttl Prot Creatinine Ratio > 10.71 mg/mg (0-0.20)
== END 2024-01-28 10:53 | disposition home or self-care (01) ==
LOC: ANHLAB 10:55
PROVIDERS: Visit Provider Internal Medicine Nephrology
DX: N18.9 Chronic kidney disease, unspecified (principal); N17.9 Acute kidney failure, unspecified
CPT/HCPCS: 36415; 80069; 82570; 83970; 84156; 85027

== ENCOUNTER 2024-02-28 16:33 | Outpatient (CLI) | payer BC, SELFPAY ==
[2024-02-28 16:58] LABS: Hematocrit 28.2 % (42.0-52.0); Hemoglobin 9.1 g/dL (14.0-18.0); Mean Corpuscular HGB Conc 32.3 g/dl (32-36); Mean Corpuscular Hemoglobin 28.2 pg (26-34); Mean Corpuscular Volume 87.3 fl (80-100); Platelet Count Result 424 k/mm3 (150-375); Red Blood Count 3.23 M/mm3 (4.6-6.20); White Blood Count 7.2 K/mm3 (4.5-10.0)
[2024-02-28 17:10] LABS: Anion Gap 6 mmol/L (4-12); Blood Urea Nitrogen 54 mg/dL (9-20); Calcium 7.6 mg/dL (8.4-10.2); Carbon Dioxide 18 mmol/L (22-30); Chloride 114 mmol/L (98-107); Estimated Glomerular Filt Rate 11; Glucose 78 mg/dL (65-110); Phosphorus 5.3 mg/dL (2.5-4.5); Potassium 4.5 mmol/L (3.4-5.0); Sodium 138 mmol/L (137-145)
[2024-02-28 17:21] LABS: Parathyroid Intact 576.2 pg/mL (14.5-75.2)
[2024-02-28 18:51] LABS: Vitamin D 25 Hydroxy < 12.8 ng/mL
== END 2024-02-28 16:34 | disposition home or self-care (01) ==
LOC: ANHLAB 16:35
PROVIDERS: Visit Provider Internal Medicine Nephrology
DX: E21.1 Secondary hyperparathyroidism, not elsewhere classified (principal); N18.5 Chronic kidney disease, stage 5
CPT/HCPCS: 36415; 80069; 82306; 83970; 85027

== ENCOUNTER 2024-03-05 17:03 | Outpatient (CLI) | payer BC, SELFPAY ==
[2024-03-05 18:28] LABS: Creatinine Urine 113.7 mg/dL
[2024-03-05 19:48] LABS: Total Protein Urine Random > 600 mg/dL; Ur Ttl Prot Creatinine Ratio > 5.28 mg/mg (0-0.20)
== END 2024-03-05 17:04 | disposition home or self-care (01) ==
LOC: ANHLAB 17:04
PROVIDERS: Visit Provider Internal Medicine Nephrology
DX: N18.5 Chronic kidney disease, stage 5 (principal)
CPT/HCPCS: 82570; 84156

== ENCOUNTER 2024-05-26 10:57 | Outpatient (CLI) | payer BC, SELFPAY ==
--- OUTSIDE RECORDS SUMMARY | 2024-05-26 11:00 | XMS_ITS | Clinical Summary ---
Author Organization [facility] Address [address] [place] [address] Phone Care Team Providers Care Braille Proofreader Name Role Phone Piper Mohr APRN, JESSICA Primary Care Pro vider Allergies No known active allergies Medications sucralfate (CARAFATE) 1 GM/10ML Suspension Take 10 mL by mouth every 6 hours. 420 mL 0 01/25/20 15 Active Additional Information Patient not taking.Reported on 09/11/2015 Syringe/Needle, Disp, (SYRINGE 3CC/74IM1-1/2 ) 21G X 1-2 3 ML Misc Use to inject 1 ml testosterone 6 Each 1 11/25/19 16 Active testosterone cypionate (DEPO-TESTOSTERON E) 200 MG/ML Solution 1 mL by Intramuscular route every 14 days. 1 mL by Intramuscular route every 14 days. 2 mL 2 09/14/19 17 Active NEEDLE, DISP, 22 G 22G X 1-1/2 Misc Use to draw up and inject testosterone. 4 Each 2 10/27/19 17 Active COMFORT ASSIST INSULIN SYRINGE 31G X 5/16 1 ML Misc USE WITH INSULIN 4 TIMES DAILY ( DM TYPE 1 E10.8) 100 Syringe 1 11/12/19 17 Active Blood Glucose Monitoring Suppl (TRUE METRIX GO GLUCOSE METER) w/Device Kit Use to test 4 times daily 1 Kit 01/27/20 17 Active B-D 3CC LUER-ALFREDO SYR 29UB3-8/2 21G X 1-2 3 ML Misc USE TO DRAW UP TESTOSTERONE. 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 DM type 1 (diabetes mellitus, type 1) 06/12/2014 Noncompliance of patient with dietary regimen Obesity 10/08/2011 Resolved Problems Problem Noted Date Diagnosed Date Resolved Date Uncontrolled diabetes mellitus 10/08/2011 06/12/2014 Family History Medical History Relation Name Comments Diabetes Maternal Aunt Coronary Artery Disease Neg Hx Thyroid Disease Neg Hx Relation Name Status Comments Maternal Aunt Social History Tobacco Use Types Packs/Day Years Used Date Smoking Tobacco: Never Smokeless Tobacco: Never Tobacco Cessation:Counseling Given: Yes Alcohol Use Standard Drinks/Week Comments Yes 0 (1 standard drink = 0.6 oz pur e alcohol) ocassionally Sex and Gender Information Value Date Recorded Sex Assigned at Not on file Legal 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 Gender Identity Not on file Sexual Orientation Not on file Last Filed Vital Signs Vital Sign Reading Time Taken Comments Blood Pressure 146/90 09/23/2017 10:33 AM CDT Pulse 106 09/23/2017 9:53 AM CDT Temperature 36.4 C (97.6 F) 09/23/2017 9:53 AM CDT Respiratory Rate 16 09/23/2017 9:53 AM CDT Oxygen Saturation 98% 09/23/2017 9:53 AM CDT Inhaled Oxygen Concentration - - Weight 125.2 kg (276 lb) 09/23/2017 9:53 AM CDT Height 170.2 cm (5' 7 ) 09/23/2017 9:53 AM CDT Body Mass Index 43.23 09/23/2017 9:53 AM CDT Plan of Treatment Health Maintenance Due Date Last Done Comments Diabetes: Foot Exam 1993 Hepatitis C Virus (HCV) Screening 1993 TdaP Immunization 1993 Hepatitis B Immunization (1 of 3 - 19+ 3-dose series) 02/10/2012 Pneumococcal Immunization Combined (1 of 2 - PCV) 02/10/2012 Diabetes: Eye Exam 08/16/2015 08/15/2014 Diabetes: Nephropathy Screening 11/02/2017 11/02/2016, 03/26/2016, 10/31/2015, Additional history exists Diabetes: Hemoglobin A1c 03/25/2018 018, 10/26/2016, 03/25/2016, Additional history exists Influenza Immunization (#1) 2023 SARS-COV-2 Immunization ( season) 2023 10/29/2020, 08/15/2020 Respiratory Syncytial Virus (RSV) Immunization (Adult) (1 - 1-dose 75+ series) 02/10/2068 DTaP/Tdap/Td Immunization Discontinued 04/12/1997 Meningococcal Immunization (ACWY) Aged Out No longer eligible based on patient's age to complete this topic Rotavirus Immunization Aged Out No lo nger eligible based on patient's age to complete this topic Procedures Procedure Name Priority Date/Time Associated Diagnosis Comments POCT GLYCOSYLATED HEMOGLOBIN Routine 09/23/2017 10:36 AM CDT 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) CMP (COMPREHENSIVE METABOLIC PANEL) Routine 11/02/2016 8:39 AM CDT Type 1 diabetes mellitus with complication (HCC) HM DILATED EYE EXAM Routine 08/15/2014 from Last 3 Months or Most Recently Relevant to Health Maintenance Results * (ABNORMAL) POCT GLYCOSYLATED HEMOGLOBIN (09/23/2017 10:36 AM CDT) HGB-A1C 11.8(A) 4 - 6 09/23/2017 10:3 6 AM CDT us Piper Mohr UAT TESTER, TRUST MAIL CLERK POINT OF CARE ROMY TING (MANUAL) Final Result * (ABNORMAL) CMP (COMPREHENSIVE METABOLIC PANEL) (11/02/2016 8:39 AM CDT) SODIUM 137 136 - 145 mmol/L 11/02/2016 9:31 AM CDT [facility] POTASSIUM 3.9 3.5 - 5.1 mmol/L 11/02/2016 9:31 AM CDT [facility] Comment: Specimen is hemolyzed. In vitro hemolysis could affect results. Clinical correlation advised. CHLORIDE 105 98 - 107 mmol/L 11/02/2016 9:31 AM CDT [facility] CO2, VENOUS 23 22 - 30 mmol/L 11/02/2016 9:31 AM CDT [facility] ANION GAP 9.0 <18.0 mmol/L 11/02/2016 9:31 AM CDT [facility] GLUCOSE 121(H) 70 - 99 mg/dL 11/02/2016 9:31 AM CDT [facility] BUN 8(L) 9 - 21 mg/dL 11/02/2016 9:31 AM CDT [facility] CREATININE, BLOOD 0.80 0.70 - 1.30 mg/dL 11/02/2016 9:31 AM CDT [facility] BUN/CREATININE RATIO 10(L) 12 - 20 ratio 11/02/2016 9:31 AM CDT [facility] TOTAL PROTEIN 7.5 6.3 - 8.2 g/dL 11/02/2016 9:31 AM CDT [facility] Comment: Specimen is hemolyzed. In vitro hemolysis could affect results. Clinical correlation advised. ALBUMIN 3.7 3.5 - 5.0 g/dL 11/02/2016 9:31 AM CDT [facility] A/G RATIO 1.0 1.0 - 2.2 11/02/2016 9:31 AM CDT [facility] CALCIUM 9.0 8.4 - 10.2 mg/dL 11/02/2016 9:31 AM CDT [facility] T BILI 0.2 0.2 - 1.2 mg/dL 11/02/2016 9:31 AM CDT [facility] Comment: Specimen is hemolyzed. In vitro hemolysis could affect results. Clinical correlation advised. SGOT (AST) 25 5 - 34 U/L 11/02/2016 9:31 AM CDT [facility] Comment: Specimen is hemolyzed. In vitro hemolysis could affect results. Clinical correlation advised. SGPT (ALT) 33 0 - 55 U/L 11/02/2016 9:31 AM CDT [facility] ALKALINE PHOSPHATASE 82 40 - 150 U/L 11/02/2016 9:31 AM CDT [facility] GFR, EST. NONAFRICAN >60 >=60 11/02/2016 9:31 AM CDT [facility] GFR, EST. >60 >=60 11/02/2016 9:31 AM T [facility] Comment: Creatinine Clearance is the preferred criteria for selecting drug dose adjustments in renally impaired patients. The GFR is provided as additional pertinent clinical information. GFR is reported in mL/min/1.73 sq m. Blood specimen (specimen) Venipuncture / Unknown 11/02/2016 8:39 AM CDT 11/02/2016 9:04 AM CDT us Ray Rodriguez MD CHEMISTRY ORDERABLES Final Result [facility] [address] [place] [address], [place] * DILATED EYE EXAM (08/15/2014) Leodan Edson [place]le[place]lin OD PROCEDURE/MINOR SURGICAL ORDERAB LES Final Result from Last 3 Months or Most Recently Relevant to Health Maintenance Insurance [place] Care Teams Braille Proofreader Relationship Specialty Start Date End Date Piper Mohr APRN, JESSICA PCP - General Certified Nurse Practitioner 06/12/14
--- OUTSIDE RECORDS SUMMARY | 2024-05-26 11:00 | XMS_ITS | Clinical Summary ---
Author Organization [facility] [address] [place] [id number] Care Team Providers Care Tube Washer Name Role Phone Abdulkadir Leon MD Unavailable [phone] No, Physician Primary Care Provider [phone] Allergies No known active allergies Medications ONETOUCH DELICA LANCETS 33 gauge miscIndications:Ty pe 1 diabetes mellitus with hyperglycemia (HCC) For true metrix glucose meter test blood sugars four times every day before meals and at bedtime DX:E10.65 insulin dependent 400 each 1 0 Active ONETOUCH VERIO SYSTEM miscIndications:Ty pe 1 diabetes mellitus with hyperglycemia (HCC) For true metrix glucose meter test blood sugars four times every day before meals and at bedtime DX:E10.65 insulin dependent 1 each 1 0 Active semaglutide (OZEMPIC) 1 mg/dose (4 mg/3 mL) pen injector injectionIndicatio ns:Type 1 diabetes mellitus with hyperglycemia (HCC),Class 3 severe obesity due to excess calories with serious comorbidity and body mass index (BMI) of 40.0 to 44.9 in adult (HCC) Inject 1 mg under the skin every 7 days Lot: [id number] Exp: 03/2023 3 pens 3 mL 1 Active OneTouch Verio test strips stripIndications:T ype 1 diabetes mellitus with hyperglycemia (HCC) USE TO TEST BLOOD SUGAR FOUR TIMES A DAY, BEFORE MEALS AND AT BEDTIME 400 each 1 2 Active BD Janna 2nd Gen Pen Needle 32 gauge x needleIndications: Type 1 diabetes mellitus with hyperglycemia (HCC) 3-4x/day 360 each 1 2 Active insulin aspart (NovoLOG) 100 unit/mL (3 mL) pen for injectionIndicatio ns:Type 1 diabetes mellitus with hyperglycemia (HCC) Inject 5 units before meals three times daily. If BG 150-200 add 2 units, 201-250 add 4 units, 251-300 add 6 units, >301 add 8 units. 18 mL 3 3 Active flash glucose sensor (FreeStyle Flaquita 2 Sensor) kitIndications:Typ e 1 diabetes mellitus with hyperglycemia (HCC) Change sensor q 2 weeks 2 kit 11 3 Active insulin aspart niacinamide (FIASP) 100 unit/mL (3 mL) pen for injectionIndicatio ns:Type 1 diabetes mellitus with hyperglycemia (HCC) Inject 5 Units under the skin 3 (three) times a day before meals Sample lot [id number] exp 06/02/2023 x 1 pen 3 mL 3 Active semaglutide (OZEMPIC) 0.25 mg or 0.5 mg(2 mg/1.5 mL) pen injector injectionIndicatio ns:Type 1 diabetes mellitus with hyperglycemia (HCC) Inject 0.5 mg under the skin every 7 days [id number] exp 09/01/2024 x 2 pens 3 mL 3 Active lisinopriL (PRINIVIL,ZESTRIL) 40 mg tabletIndications: Hypertension associated with diabetes (HCC) Take 1 tablet (40 mg total) by mouth daily 90 tablet 3 3 Active atorvastatin (LIPITOR) 40 mg tabletIndications: Hyperlipidemia associated with type 2 diabetes mellitus (HCC) Take 1 tablet (40 mg total) by mouth daily 90 tablet 3 3 Active insulin lispro (HumaLOG) 100 unit/mL pen for injection Inject 5-13 Units under the skin 3 (three) times a day 45 mL 3 3 Active Active Problems Problem Noted Date Diagnosed Date Hyperlipidemia associated with type 2 diabetes m priscila 07/19/2022 Class 2 severe obesity due t o excess calories with serious comorbidity and body mass index (BMI) of 38.0 to 38.9 in adult 04/26/2022 Assessment & Plan (04/26/2022 11:43 AM FELT CARBONIZER): Discussed healthy diet and importance of regular physical activity (20- 30min/day, 150min/wk). Has lost 19# since last appt 09/2021. He has changed diet & increased activity. Persistent proteinuria 10/01/2021 Assessment & Plan (10/01/2021 4:16 PM CDT): Referral placed to nephrology. Poor compliance with medication 01/19/2021 Hypertension associated with diabetes 12/27/2016 Assessment & Plan (04/26/2022 12:02 PM FELT CARBONIZER): Chronic problem, currently taking lisinopril/hctz 40/50mg. Will update labs today. Assessment & Plan (10/01/2021 4:15 PM CDT): Chronic problem, not at goal. Did not take med today, misses often per pt. Needs to work on taking consistently. Assessment & Plan (01/19/2021 3:38 PM CDT): Chronic, worsening control Pt stopped taking lisinopril 40 mg - as his BP was high Today BP - 172/104 Pt asymptomatic Start pt on Lisinopril -HCTZ 20-12.5 - take 2 tab oral daily Low salt diet F/w in 6 weeks Assessment & Plan (03/17/2020 3:04 PM FELT CARBONIZER): Hypertension is improving with treatment Continue current treatment regimen. Dietary sodium restriction. Weight loss. Regular aerobic exercise. Continue current medications. Blood pressure will be reassessed at the next regular appointment. Assessment & Plan (01/01/2020 12:55 PM CDT): Hypertension is improving with treatment Continue current treatment regimen. Dietary sodium restriction. Weight loss. Regular aerobic exercise. Continue current medications. Blood pressure will be reassessed at the next regular appointment. Assessment & Plan (11/04/2019 9:02 PM CDT): Hypertension is improving with treatment Continue current treatment regimen. Dietary sodium restriction. Weight loss. Regular aerobic exercise. Continue current medications. Blood pressure will be reassessed at the next regular appointment. Assessment & Plan (06/11/2019 12:55 PM CDT): Hypertension is worsening Increase Lisinopril to 40 mg oral daily . Advised to come to clinic for a BP check in 2 weeks Continue current treatment regimen. Dietary sodium restriction. Weight loss. Regular aerobic exercise. Continue current medications. Blood pressure will be reassessed at the next regular appointment. Assessment & Plan (04/30/2019 1:42 PM FELT CARBONIZER): Hypertension is improving with treatment. Continue current treatment regimen. Dietary sodium restriction. Weight loss. Regular aerobic exercise. Continue current medications. Blood pressure will be reassessed at the next regular appointment. Assessment & Plan (10/16/2018 1:10 PM CDT): Hypertension is improving with treatment. Continue current treatment regimen. Dietary sodium restriction. Weight loss. Regular aerobic exercise. Continue current medications. Blood pressure will be reassessed at the next regular appointment. Assessment & Plan (09/04/2018 10:38 PM CDT): Hypertension is improving with treatment. Continue current treatment regimen. Dietary sodium restriction. Weight loss. Regular aerobic exercise. Continue current medications. Blood pressure will be reassessed at the next regular appointment. Assessment & Plan (05/02/2017 1:26 PM FELT CARBONIZER): Hypertension is improving with treatment. Continue current treatment regimen. Dietary sodium restriction. Weight loss. Regular aerobic exercise. Continue current medications. Blood pressure will be reassessed at the next regular appointment. Assessment & Plan (01/25/2017 9:19 AM CDT): Hypertension is improving , still SBP 140 . - increase lisinopril to 30 mg oral daily - advised low salt diet - advised to increase aerobic exercise Medication refill done today Blood pressure will be reassessed at the next regular appointment. Assessment & Plan (01/02/2017 11:23 PM CDT): Hypertension is uncontrolled today, as pt. ran out of his Bp pills. Continue current treatment regimen. Dietary sodium restriction. Weight loss. Regular aerobic exercise. Continue current medications. Medication refill done today Blood pressure will be reassessed at the next regular appointment. Mixed hypercholesterolemia and hypertriglyceride matthew 12/27/2016 Assessment & Plan (01/19/2021 3:42 PM CDT): Pt stopped taking statin therapy Today TG are very high - due to cheese cake - reassess levels fasting Advised low carb diet , Stop added sugars Work on weight loss Assessment & Plan (03/17/2020 3:06 PM FELT CARBONIZER): Continue statin therapy Assessment & Plan (01/01/2020 12:55 PM CDT): Continue statin therapy Assessment & Plan (11/04/2019 9:02 PM CDT): Continue statin therapy Assessment & Plan (06/11/2019 12:55 PM CDT): Continue statin therapy Assessment & Plan (04/30/2019 1:41 PM FELT CARBONIZER): Continue statin therapy Assessment & Plan (10/16/2018 1:08 PM CDT): Improving Continue statin therapy Will follow up in 6 months Assessment & Plan (09/04/2018 10:37 PM CDT): Lipid abnormalities are worsening. Nutritional counseling was provided. and Pharmacotherapy as ordered. Lipids will be reassessed in 6 months. Assessment & Plan (05/02/2017 1:24 PM FELT CARBONIZER): On statin therapy Advised low fat/chol diet Increase aerobic exercise Advised weight loss Assessment & Plan (01/25/2017 9:21 AM CDT): Recent lipid panel 01/01/2017 - LDL - 152 Change to moderate strength statin Stop Zocor and start Lipitor 40 mg oral daily Advised low fat/chol diet Increase aerobic exercise Advised weight loss Assessment & Plan (01/02/2017 11:19 PM CDT): Refilled pt. Satin therapy recheck lipid panel Advised low fat/chol diet Increase aerobic exercise Advised weight loss Type 1 diabetes mellitus with hyperglycemia 12/04 Assessment & Plan (04/26/2022 11:54 AM FELT CARBONIZER): Chronic problem, great improvement. Now at goal. No longer using U500 insulin. Relates it was dropping him even at very minimal doses. He has been using novolog flex pen but changes his dose. Will start 5 units tid aC & 2:50>150 sliding scale. He is aware and comfortable to decrease insulin dose if he start seeing lows. Will update labs today. Verified phone #/address. Assessment & Plan (10/01/2021 4:17 PM CDT): Chronic problem, not at goal. Can try lowering aC dose of U500 to 30 units due to lows in the morning. But should use scale and doses listed last visit for lunch and dinner because these are larger meals. I believe dexcom is covered on his insurance. He's agreeable to seeing if this will be feasible for him to get financially. Let us know if any issues. Assessment & Plan (01/19/2021 3:41 PM CDT): Chronic, uncontrolled , worsening HbA1c - 11.2 % Poor patient compliance to insulin and diet - pt ski insulin a lot and also very poor compliant with his diet He had a egg with biscuits and cheese cake today Reviewed BS log Up and down Regular U500 insulin Take 30 units for small meal ( 15-20 grms of carbs ) 50 - 60 units for medium meal ( 45-60 grms of carbs ) 80-100 units for Large meal ( 80-100 gram of carbs ) > 151 - 200 + 10 units 201 - 250 + 15 units 251 - 300 + 20 units 301 - 350 + 25 units Over 351 + 30 units - start Ozempic 0.25 mg Sq weekly for 2 weeks than increase to 0.5 mg SQ weekly - follow up with Marycruz PA in 6 weeks Counseled on portion , carb control diet Increase physical activity - pt intolerant to oral metformin ( tried in past to help insulin resistance ) Pt insurance do not approve SGLT-2 inhibitors or GLP-1 agonist Gave ozempic samples - to help with appetite and weight loss Pt tried omnipod insulin pump in past - came off due to high copay Assessment & Plan (03/17/2020 3:07 PM FELT CARBONIZER): Chronic, uncontrolled , worsening HbA1c - 10.7 % Poor patient compliance to insulin and diet - Regular U500 insulin 40 -50 Units three times with meals + below correctional dose 120 - 150 + 10 units 151 - 200 + 20 units 201 - 250 + 30 units greater than 250 + 35 Units Farxiga 10 mg oral daily Once ozempic is done, switch to weekly Trulicity Counseled on portion , carb control diet Increase physical activity Assessment & Plan (01/01/2020 12:54 PM CDT): Chronic, uncontrolled HbA1c - 10. 1 % - Regular U500 insulin 30 Units three times with meals + below correctional dose 120 - 150 + 10 units 151 - 200 + 20 units 201 - 250 + 30 units greater than 250 + 35 Units Bedtime Less than 200 - 0 units 201 - 250 - 10 units Over 251 - 20 units Keep taking farxiga 10 mg oral daily Ozempic - 0.25 mg SQ for 2 weeks than increase 0.5 mg SQ weekly Follow up in 3 months Assessment & Plan (11/04/2019 9:01 PM CDT): Diabetes worsening - Hba1c - 10.4 % - start Symlin 60 mcg SQ three times With meals - Regular U500 insulin 60- 70 Units three times with meals + below correctional dose 151 - 200 + 5 units 201 - 250 + 10 units 251 - 300 + 15 units Over 301 + 20 units Keep taking Farxiga - follow up in 6 weeks with blood sugar log Reminded to bring in blood sugar diary at next visit. Dietary recommendations for ADA diet. Regular aerobic exercise. Discussed ways to avoid symptomatic hypoglycemia. Discussed sick day management. Discussed foot care. Reminded to get yearly retinal exam. Medication changes per orders. Assessment & Plan (06/11/2019 12:54 PM CDT): Diabetes is improving slowly, but not as pexpected, Still seevre post prandial hyperglycemia noted page post dinner and overnight Suspect poor pt compliance to diet at dinner and bedtime Reviewed Bs log Advised to take Regular U 500 Insulin pen to 100 Units 4 x daily with with meals and bedtime - start taking Metformin XR 500 mg oral twice daily- To help improve resistance - start Farxiga 10 mg oral daily , - do Check fingerstick and do Blood sugar log And Food log - Pt could not afford CGM due to cost - follow up in 3 months Reminded to bring in blood sugar diary at next visit. Dietary recommendations for ADA diet. Regular aerobic exercise. Discussed ways to avoid symptomatic hypoglycemia. Discussed sick day management. Discussed foot care. Reminded to get yearly retinal exam. Medication changes per orders. Assessment & Plan (04/30/2019 1:41 PM FELT CARBONIZER): Diabetes is improving slowly, but not as pexpected, Still seevre hyperglycemia noted Suspect poor pt compliance to diet and insulin Reviewed Bs log Advised to take Regular U 500 Insulin pen to 100 units TID with meals and 20-60 units at bedtime - start taking Metformin XR 500 mg oral twice daily- To help improve resistance - do Check fingerstick and do Blood sugar log And Food log - follow up with nurse practitioner Sabine Patel in 4 weeks with the log to discuss about carb counting, CGM, insulin pump And in 2 months with me Reminded to bring in blood sugar diary at next visit. Dietary recommendations for ADA diet. Regular aerobic exercise. Discussed ways to avoid symptomatic hypoglycemia. Discussed sick day management. Discussed foot care. Reminded to get yearly retinal exam. Medication changes per orders. Assessment & Plan (10/16/2018 1:06 PM CDT): Diabetes is improving Reviewed Bs log To patient not on consistent carbs therefore blood sugars are up and down mostly currently blood sugars are in 200 Advised patient to work on carb counting with meals Advised to take Regular U 500 Insulin pen to 50-75 units TID with meals and bedtime - increase metformin to 1000 mg oral twice daily- improves resistance - do Check fingerstick and do Blood sugar log And Food log - follow up with nurse practitioner Sabine Patel in 2 months with the log to discuss about carb counting, CGM, insulin pump And in 4 months with me Reminded to bring in blood sugar diary at next visit. Dietary recommendations for ADA diet. Regular aerobic exercise. Discussed ways to avoid symptomatic hypoglycemia. Discussed sick day management. Discussed foot care. Reminded to get yearly retinal exam. Medication changes per orders. Assessment & Plan (09/05/2018 4:07 PM CDT): Diabetes is worsening. A1c - 11.3 % Increase Regular U 500 Insulin pen to 75-100 units TID with meals and bedtime - start metformin 500 mg oral tid with meals - improves resistance - Advise to do lab work up in - fasting 8-9 am - do Check fingerstick and do Blood sugar log And Food log - follow up in 4 weeks with the log Reminded to bring in blood sugar diary at next visit. Dietary recommendations for ADA diet. Regular aerobic exercise. Discussed ways to avoid symptomatic hypoglycemia. Discussed sick day management. Discussed foot care. Reminded to get yearly retinal exam. Medication changes per orders. Diabetes will be reassessed in 1 month. Assessment & Plan (05/02/2017 1:24 PM FELT CARBONIZER): Lab Results Component Value Date HGBA1C 11.7 05/02/2017 - poorly controlled - pt poor compliance to diet and exercise - high insulin resistance - morbid obesity - counseled > 50 % of the visit time discussing about improving his lifestyle habits - strongly advised to work on loosing weight. - advised to do U 500 Regular insulin 30 units TID with meals and And decrease to 10 units at bedtime - advised to check blood sugars at least 4-5 x daily - before each meal and bedtime - advised to keep BS log and bring in with each doctor visit . - discussed about hypoglycemia management - follow up in 3 months Diabetes is worsening Reminded to bring in blood sugar diary at next visit. Dietary recommendations for ADA diet. Regular aerobic exercise. Discussed ways to avoid symptomatic hypoglycemia. Discussed sick day management. Discussed foot care. Reminded to get yearly retinal exam. Medication changes per orders. Diabetes will be reassessed in 3 months Assessment & Plan (01/25/2017 9:22 AM CDT): Lab Results Component Value Date HGBA1C 11.2 12/27/2016 - poorly controlled - pt poor compliance to diet and exercise - high insulin resistance - morbid obesity - reviewed and discussed pt. Recent BS log and lab results - BS slowly improving - counseled > 50 % of the visit time discussing about improving his lifestyle habits - strongly advised to work on loosing weight. - advised to do U 500 Regular insulin 25 units TID with meals and And decrease to 15 units at bedtime - advised to check blood sugars at least 4-5 x daily - before each meal and bedtime - advised to keep BS log and bring in with each doctor visit . - discussed about hypoglycemia management - follow up in 2 months Diabetes is improving Reminded to bring in blood sugar diary at next visit. Dietary recommendations for ADA diet. Regular aerobic exercise. Discussed ways to avoid symptomatic hypoglycemia. Discussed sick day management. Discussed foot care. Reminded to get yearly retinal exam. Medication changes per orders. Diabetes will be reassessed in 2 months Assessment & Plan (01/02/2017 11:19 PM CDT): Lab Results Component Value Date HGBA1C 11.2 12/27/2016 - poorly controlled - pt poor compliance to diet and exercise - high insulin resistance - morbid obesity - counseled > 50 % of the visit time discussing about improving his lifestyle habits - strongly advised to work on loosing weight. - advised to do U 500 Regular insulin 25 units TID with meals and 10 units at bedtime - advised to check blood sugars at least 4-5 x daily - before each meal and bedtime - advised to keep BS log and bring in with each doctor visit . - discussed about hypoglycemia management - follow up in 4 weeks Diabetes is worsening. Reminded to bring in blood sugar diary at next visit. Dietary recommendations for ADA diet. Regular aerobic exercise. Discussed ways to avoid symptomatic hypoglycemia. Discussed sick day management. Discussed foot care. Reminded to get yearly retinal exam. Medication changes per orders. Diabetes will be reassessed in 4 weeks. Scabies 10/28/2014 Delayed puberty 08/14/2014 Noncompliance of patient with dietary regimen Resolved Problems Problem Noted Date Diagnosed Date Resolved Date Morbid (severe) obesity due to excess calories 10/01/2021 04/26/2022 Assessment & Plan (10/01/2021 4:15 PM CDT): Work on healthy diet and regular exercise. Body mass index 40.0-44.9, adult ([facility]) 10/01/2021 04/26/2022 Class 3 severe obesity due t o excess calories with serious comorbidity and body mass index (BMI) of 40.0 to 44.9 in adult 12/27/2016 3 Assessment & Plan (01/19/2021 3:41 PM CDT): Chronic, worsening Discussed about healthy lifestyle habits advise to work on healthy diet, avoid processed foods , increase vegetables and protein and cut back on carb portions and also avoid fruit juices and regular soda and desserts Increase physical activity , recommend at least 150 min of aerobic activity per week and include resistance training 2 x weekly Assessment & Plan (03/17/2020 3:05 PM FELT CARBONIZER): slowly improving possible due to ozempic effect Poor pt eating habits Counseled in diet and exercise Assessment & Plan (01/01/2020 12:54 PM CDT): Chronic, unchanged Discussed about healthy lifestyle habits advise to work on healthy diet, avoid processed foods , increase vegetables and protein and cut back on carb portions and also avoid fruit juices and regular soda and desserts Increase physical activity , recommend at least 150 min of aerobic activity per week and include resistance training 2 x weekly Assessment & Plan (11/04/2019 9:02 PM CDT): Chronic, unchanged Discussed about healthy lifestyle habits advise to work on healthy diet, avoid processed foods , increase vegetables and protein and cut back on carb portions and also avoid fruit juices and regular soda and desserts Increase physical activity , recommend at least 150 min of aerobic activity per week and include resistance training 2 x weekly Assessment & Plan (06/11/2019 12:54 PM CDT): Chronic, worsening Discussed about healthy lifestyle habits advise to work on healthy diet, avoid processed foods , increase vegetables and protein and cut back on carb portions and also avoid fruit juices and regular soda and desserts Increase physical activity , recommend at least 150 min of aerobic activity per week and include resistance training 2 x weekly Assessment & Plan (04/30/2019 1:41 PM FELT CARBONIZER): Chronic, worsening Discussed about healthy lifestyle habits advise to work on healthy diet, avoid processed foods , increase vegetables and protein and cut back on carb portions and also avoid fruit juices and regular soda and desserts Increase physical activity , recommend at least 150 min of aerobic activity per week and include resistance training 2 x weekly Assessment & Plan (10/16/2018 1:06 PM CDT): Obesity is unchanged. Discussed the patient's BMI. The BMI is above average; BMI management plan is completed. General weight loss/lifestyle modification strategies discussed (elicit support from others; identify saboteurs; non-food rewards, etc). Behavioral treatment: stress management. Diet interventions: moderate (500 kCal/d) deficit diet. Informal exercise measures discussed, e.g. taking stairs instead of elevator. Regular aerobic exercise program discussed. Assessment & Plan (09/04/2018 10:38 PM CDT): Obesity is improving with lifestyle modifications. Discussed the patient's BMI. The BMI is above average; BMI management plan is completed. General weight loss/lifestyle modification strategies discussed (elicit support from others; identify saboteurs; non-food rewards, etc). Behavioral treatment: stress management. Diet interventions: moderate (500 kCal/d) deficit diet. Informal exercise measures discussed, e.g. taking stairs instead of elevator. Regular aerobic exercise program discussed. Assessment & Plan (05/02/2017 1:26 PM FELT CARBONIZER): Obesity is unchanged. Discussed the patient's BMI. The BMI is above average; BMI management plan is completed. General weight loss/lifestyle modification strategies discussed (elicit support from others; identify saboteurs; non-food rewards, etc). Behavioral treatment: stress management. Diet interventions: diet diary indefinitely, moderate (500 kCal/d) deficit diet and qualitative changes (increase low-fat, high-fiber foods). Informal exercise measures discussed, e.g. taking stairs instead of elevator. Regular aerobic exercise program discussed. Assessment & Plan (01/25/2017 9:18 AM CDT): Obesity is unchanged. Discussed the patient's BMI. The BMI is above average; BMI management plan is completed. General weight loss/lifestyle modification strategies discussed (elicit support from others; identify saboteurs; non-food rewards, etc). Behavioral treatment: stress management. Diet interventions: moderate (500 kCal/d) deficit diet. Informal exercise measures discussed, e.g. taking stairs instead of elevator. Regular aerobic exercise program discussed. Assessment & Plan (01/02/2017 11:22 PM CDT): Obesity is worsening. Discussed the patient's BMI. The BMI is above average; BMI management plan is completed. General weight loss/lifestyle modification strategies discussed (elicit support from others; identify saboteurs; non-food rewards, etc). Behavioral treatment: stress management. Diet interventions: moderate (500 kCal/d) deficit diet. Informal exercise measures discussed, e.g. taking stairs instead of elevator. Regular aerobic exercise program discussed. Male hypogonadism 12/27/2016 10/16/2018 Assessment & Plan (05/02/2017 1:25 PM FELT CARBONIZER): Reviewed all labsredults - possible low normal testosterone - secondary to morbid obesity - pt. Symptomatic with low libido - advised to change testosterone replacement therapy - to 200 mg Im every 10 days - discussed the side effects and prons and cons -strongly advised to work on loosing some weight - advise to do labs in 2 months , 5 days after last shot Assessment & Plan (01/25/2017 9:18 AM CDT): Reviewed all labsredults - possible low normal testosterone - secondary to morbid obesity - advised will c/w testosterone replacement therapy - discussed the side effects and prons and cons -strongly advised to work on loosing some weight Assessment & Plan (01/02/2017 11:21 PM CDT): Reviewed all previous labs and imaging redults - possible low normal testosterone - secondary to morbid obesity - advised will c/w testosterone replacement therapy - discussed the side effects and prons and cons -strongly advised to work on loosing some weight - recheck levels DM type 1 (diabetes mellitus, type 1) 06/12/2014 04/26/2022 Immunizations Immunization Administration Dates Next Due DTP 04/12/1997 MMR 04/12/1997 OPV 04/12/1997 Surgical History Surgery Date Site/Laterality Comments APPENDECTOMY Medical History Medical History Date Comments Diabetes mellitus type I (HCC) Hypertension Family History Medical History Relation Name Comments No Known Problems Father Breast cancer Mother Hypertension Mother Relation Name Status Comments Father Mother Social History Tobacco Use Types Packs/Day Years Used Date Smoking Tobacco: Never Smokeless Tobacco: Never Tobacco Cessation:Counseling Given: No Alcohol Use Standard Drinks/Week Comments Yes 0 (1 standard drink = 0.6 oz pur e alcohol) PHQ-2 Answer Date Recorded PHQ-2 Total Score (If total score is 3 or more points, staff should administer the PHQ-9) 0 03/17/2020 Sex and Gender Information Value Date Recorded Sex Assigned at Not on file Legal Sex Male 4:02 PM CDT Gender Identity Not on file Sexual Orientation Not on file Obstetrics History Last Filed Vital Signs Vital Sign Reading Time Taken Comments Blood Pressure 138/88 04/26/2022 11:36 AM FELT CARBONIZER Pulse 91 04/26/2022 10:57 AM FELT CARBONIZER Temperature - - Respiratory Rate 16 04/26/2022 10:5 7 AM FELT CARBONIZER Oxygen Saturation - - Inhaled Oxygen Concentration - - Weight 110.9 kg (244 lb 6.4 oz) 023 10:57 AM FELT CARBONIZER Height 170.2 cm (5' 7 ) 04/26/2022 10:5 7 AM FELT CARBONIZER Body Mass Index 38.28 04/26/2022 10:57 AM FELT CARBONIZER Plan of Treatment Health Maintenance Due Date Last Done Comments Hepatitis C Screening 1993 DTaP/Tdap/Td Vaccine (2 - Tdap) 02/10/2004 04/12/1997 Varicella Vaccines (1 of 2 - 13+ 2-dose series) 2006 Hepatitis B Screening 2011 Regular Well Visit/Exam 18-64 2011 Pneumococcal vaccine <65 (1 of 2 - PCV) 02/10/2012 Depression Screening 03/17/2021 03/17/2020, 12/24/2019, 10/29/2019, Additional history exists Dilated Eye Exam 04/14/2021 04/14/2020, , 08/18/2018 TSH Level 01/19/2022 01/19/2021, 09/11/2018 Hemoglobin A1C 10/24/2022 04/26/2022, 09/04, 01/19/2021, Additional history exists Albumin Creatinine Ratio, Urine 04/26/2023 04/26/2022, 01/19/2021, 09/11/2018 Foot Exam 04/26/2023 04/26/2022, 09/04, 01/19/2021, Additional history exists Lipid Panel 04/26/2023 04/26/2022, 01/02, 10/29/2019, Additional history exists eGFR 05/10/2023 05/10/2022, 04/05, 01/19/2021 Influenza Vaccine (#1) 2023 HPV Vaccines Aged Out No longer eligi ble based on patient's age to complete this topic Procedures Procedure Name Priority Date/Time Associated Diagnosis Comments EGFR Routine 05/10/2022 8:43 AM FELT CARBONIZER Hypertension associated with diabetes (HCC) Hyperkalemia LIPID PANEL Routine 04/26/2022 11:52 AM FELT CARBONIZER Type 1 diabetes mellitus with hyperglycemia (HCC) ALBUMIN CREATININE RATIO, URINE Routine 04/26/2022 11:52 AM FELT CARBONIZER Type 1 diabetes mellitus with hyperglycemia (HCC) Hypertension associated with diabetes (HCC) POCT HEMOGLOBIN A1C Routine 04/26/2022 1 1:08 AM FELT CARBONIZER Type 1 diabetes mellitus with hyperglycemia (HCC) THYROID FUNCTION CASCADE Routine 01/19/2021 2:58 PM CDT Type 1 diabetes mellitus with hyperglycemia (HCC) DIABETIC EYE EXAM Routine 04/14/2020 from Last 3 Months or Most Recently Relevant to Health Maintenance Results * eGFR (05/10/2022 8:43 AM FELT CARBONIZER) eGFR 39 mL/min/1. 73 m2 [facility] JOHNSON Comment: Interpretive Data Reference Interval Normal >/= 90 mL/min/1.73m2 Mildly decreased* 60 - 89 mL/min/1.73m2 Mildly to moderately decreased 45 - 59 mL/min/1.73m2 Moderately to severely decreased 30 - 44 mL/min/1.73m2 Severely decreased 15 - 29 mL/min/1.73m2 Kidney Failure < 15 mL/min/1.73m2 *Relative to young adult level Estimated glomerular filtration rate is determined by the 2020 CKD-EPI equation recommended by the National Kidney Foundation (A Unifying Approach to GFR Estimation: Recommendations of the NKF-ASK Task Force on Reassessing the Inclusion of Race in Diagnosing Kidney Disease, JASN 2020). The CKD-EPI equation should not be used for patients with unstable renal function and has not been validated in children and those over 70. Current interpretive data was last reviewed 2021. Blood 05/10/2022 8:43 AM FELT CARBONIZER 05/10/2022 4:12 PM FELT CARBONIZER us Annette Pitts COMMERCIAL COUNSEL LAB BLOOD ORDERABLES Neena l Result Performing Organization Address [facility] Co de Phone Number OMAR JOHNSON [address] [place] [address] * (ABNORMAL) Albumin Creatinine Ratio, Urine (04/26/2022 11:52 AM FELT CARBONIZER) Albumin Ur 3,167.1 mg/L OMAR Comment: Interpretive Data No reference range established. Current interpretive data was last revised 2018. Creatinine Ur 74.6 mg/dL OMAR Comment: Interpretive Data No reference range established. Current interpretive data was last revised 2018. Albumin Creatinine Ratio, Ur 4,245(H) 1 - 29 mg/g [facility] Urine 04/26/2022 11:5 2 AM FELT CARBONIZER 04/26/2022 8:36 PM FELT CARBONIZER us Annette Pitts NP LAB URINE ORDERABLES Neena l Result Performing Organization Address [facility] Co de Phone Number OMAR ALEX [address] [facility] [place] [address] * (ABNORMAL) Lipid panel (04/26/2022 11:52 AM FELT CARBONIZER) Cholesterol 270(H) 30 - 199 mg/dL OMAR Comment: Interpretive Data Ages < or = 19 years Acceptable: <170 mg/dL Borderline high: 170-199 mg/dL High: >or= 200 mg/dL Ages > or = 20 years Desirable: <200 mg/dL Borderline high: 200-239 mg/dL High: >or= 240 mg/dL Literature References: 1. Expert Panel on Integrated Guidelines for Cardiovascular Health and Risk Reduction in Children and Adolescents. Pediatrics 2011;128:S213 2. NCEP Expert Panel. Circulation 2004;110:227 Current Interpretive Data was last revised on 2017. Triglycerides 119 <=149 mg/dL OMAR JOHNSON Comment: Interpretive Data Ages < or = 9 years Acceptable: <75 mg/dL Borderline high: 75-99 mg/dL High: >or= 100 mg/dL Ages 10 to 20 years Acceptable: <90 mg/dL Borderline high: 90-129 mg/dL High: >or= 130 mg/dL Ages > or = 20 years Desirable: <150 mg/dL Borderline high: 150-199 mg/dL High: 200-499 mg/dL Very high: >or= 499 mg/dL Literature References: 1. Expert Panel on Integrated Guidelines for Cardiovascular Health and Risk Reduction in Children and Adolescents. Pediatrics 2011;128:S213 2. NCEP Expert Panel. Circulation 2004;110:227 Current Interpretive Data was last revised on 2017. HDL 42 >=40 mg/dL OMAR JOHNSON Comment: Interpretive Data Ages < or = 19 years Acceptable: >45 mg/dL Borderline low: 40-45 mg/dL Low: <40 mg/dL Ages > or = 20 years Desirable: >or= 60 mg/dL Low: <40 mg/dL Literature References: 1. Expert Panel on Integrated Guidelines for Cardiovascular Health and Risk Reduction in Children and Adolescents. Pediatrics 2011;128:S213 2. NCEP Expert Panel. Circulation 2004;110:227 Current Interpretive Data was last revised on 2017. LDL, calculated 204(H) <=129 mg/dL OMAR JOHNSON Comment: Interpretive Data Ages < or = 19 years Acceptable: <110 mg/dL Borderline high: 110-129 mg/dL High: >or= 130 mg/dL Ages > or = 20 years Optimal: <100 mg/dL Near optimal: 100-129 mg/dL Borderline high: 130-159 mg/dL High: >160 mg/dL Literature References: 1. Expert Panel on Integrated Guidelines for Cardiovascular Health and Risk Reduction in Children and Adolescents. Pediatrics 2011;128:S213 2. NCEP Expert Panel. Circulation 2004;110:227 Current Interpretive Data was last revised on 2017. Non-HDL Cholesterol 228 mg/dL OMAR Comment: Interpretive Data Ages < or = 19 years Acceptable: <120 mg/dL Borderline high: 120-144 mg/dL High: >145 mg/dL Ages > or = 20 years When triglycerides are >200 mg/dL, Non-HDL cholesterol is a secondary target of therapy with treatment goals that are 30 mg/dL greater than the LDL cholesterol target. Literature References: 1. Expert Panel on Integrated Guidelines for Cardiovascular Health and Risk Reduction in Children and Adolescents. Pediatrics 2011;128:S213 2. NCEP Expert Panel. Circulation 2004;110:227 Current Interpretive Data was last revised on 2017. Chol/HDL ratio 6 [facility] Blood 04/26/2022 11:5 2 AM FELT CARBONIZER 04/26/2022 8:36 PM FELT CARBONIZER Narrative [facility] - 04/26/2022 9:10 PM FELT CARBONIZER These lab test should be done fasting. This means do not eat or drink for at least 12 hours prior to getting your blood drawn. Annette Pitts NP LAB BLOOD ORDERABLES Neena l Result OMAR [id number] Department [place] [address] * POCT hemoglobin A1c (04/26/2022 11:08 AM FELT CARBONIZER) Hemoglobin A1C, POC 6.8 Blood 04/26/2022 11:0 8 AM FELT CARBONIZER us Annette Pitts NP POINT OF CARE TEST ORDERA BLES Final Result * TSH reflex to free T4 (01/19/2021 2:58 PM CDT) TSH 2.06 0.30 - 4.20 mcIUnit/mL OMAR Blood 01/19/2021 2:58 PM CDT 01/19/2021 8:50 PM CDT Belgica Barth MD LAB [place] [address] [address] Department [place] [address] * Diabetic Eye Exam (04/14/2020) us Historical Provider HEALTH MAINTENANCE Final Result from Last 3 Months or Most Recently Relevant to Health Maintenance Insurance [facility] PLAN DONA WINCHESTER [facility] Care Teams Tube Washer Relationship Specialty Start Date End Date No, Physician PCP - General 10/01/21 Abdulkadir Leon MD Consulting Physician Urology 10/29/19
--- OUTSIDE RECORDS SUMMARY | 2024-05-26 11:00 | XMS_ITS | Referral Summary ---
Author Organization [facility] Physician Office Building [address] [place] [id number] Care Team Providers Care Timber Feller Name Role Phone Abdulkadir Leon MD Unavailable [phone] No, Physician Primary Care Provider [phone] Allergies No known active allergies Medications ONETOUCH [...] under the skin every 7 days Lot: [id number] Exp: 03/2023 3 pens 3 mL 1 [...] times a day before meals Sample lot [id number] exp 06/02/2023 x 1 pen 3 mL 3 Active semaglutide (OZEMPIC) 0.25 mg or 0.5 mg(2 mg/1.5 mL) pen injector injectionIndicatio ns:Type 1 diabetes mellitus with hyperglycemia (HCC) Inject 0.5 mg under the skin every 7 days [id number] exp 09/01/2024 x 2 pens 3 mL [...] 04/26/2022 Assessment & Plan (04/26/2022 11:43 AM AIRBRUSH ARTIST PHOTOGRAPHY): Discussed healthy diet and importance of regular physical activity (20- 30min/day, 150min/wk). Has lost 19# since last appt 09/2021. He has changed diet & increased activity. Persistent proteinuria 10/01/2021 Assessment & Plan (10/01/2021 4:16 PM CDT): Referral placed to nephrology. Poor compliance with medication 01/19/2021 Hypertension associated with diabetes 12/27/2016 Assessment & Plan (04/26/2022 12:02 PM AIRBRUSH ARTIST PHOTOGRAPHY): Chronic problem, currently taking lisinopril/hctz 40/50mg. Will [...] weeks Assessment & Plan (03/17/2020 3:04 PM AIRBRUSH ARTIST PHOTOGRAPHY): Hypertension is improving with treatment Continue current [...] appointment. Assessment & Plan (04/30/2019 1:42 PM AIRBRUSH ARTIST PHOTOGRAPHY): Hypertension is improving with treatment. Continue current [...] appointment. Assessment & Plan (05/02/2017 1:26 PM AIRBRUSH ARTIST PHOTOGRAPHY): Hypertension is improving with treatment. Continue current [...] loss Assessment & Plan (03/17/2020 3:06 PM AIRBRUSH ARTIST PHOTOGRAPHY): Continue statin therapy Assessment & Plan (01/01/2020 12:55 PM CDT): Continue statin therapy Assessment & Plan (11/04/2019 9:02 PM CDT): Continue statin therapy Assessment & Plan (06/11/2019 12:55 PM CDT): Continue statin therapy Assessment & Plan (04/30/2019 1:41 PM AIRBRUSH ARTIST PHOTOGRAPHY): Continue statin therapy Assessment & Plan (10/16/2018 1:08 PM CDT): Improving Continue statin therapy Will follow up in 6 months Assessment & Plan (09/04/2018 10:37 PM CDT): Lipid abnormalities are worsening. Nutritional counseling was provided. and Pharmacotherapy as ordered. Lipids will be reassessed in 6 months. Assessment & Plan (05/02/2017 1:24 PM AIRBRUSH ARTIST PHOTOGRAPHY): On statin therapy Advised low fat/chol diet [...] 12/04 Assessment & Plan (04/26/2022 11:54 AM AIRBRUSH ARTIST PHOTOGRAPHY): Chronic problem, great improvement. Now at goal. [...] copay Assessment & Plan (03/17/2020 3:07 PM AIRBRUSH ARTIST PHOTOGRAPHY): Chronic, uncontrolled , worsening HbA1c - 10.7 [...] orders. Assessment & Plan (04/30/2019 1:41 PM AIRBRUSH ARTIST PHOTOGRAPHY): Diabetes is improving slowly, but not as [...] - follow up with nurse practitioner Sabine Paetl in 2 months with the log to [...] month. Assessment & Plan (05/02/2017 1:24 PM AIRBRUSH ARTIST PHOTOGRAPHY): Lab Results Component Value Date HGBA1C 11.7 [...] regular exercise. Body mass index 40.0-44.9, adult ([facility]) 10/01/2021 04/26/2022 Class 3 severe obesity due [...] weekly Assessment & Plan (03/17/2020 3:05 PM AIRBRUSH ARTIST PHOTOGRAPHY): slowly improving possible due to ozempic effect [...] weekly Assessment & Plan (04/30/2019 1:41 PM AIRBRUSH ARTIST PHOTOGRAPHY): Chronic, worsening Discussed about healthy lifestyle habits [...] discussed. Assessment & Plan (05/02/2017 1:26 PM AIRBRUSH ARTIST PHOTOGRAPHY): Obesity is unchanged. Discussed the patient's BMI. [...] 10/16/2018 Assessment & Plan (05/02/2017 1:25 PM AIRBRUSH ARTIST PHOTOGRAPHY): Reviewed all labsredults - possible low normal [...] Due DTP 04/12/1997 MMR 04/12/1997 OPV 04/12/1997 Social History Tobacco Use Types Packs/Day Years [...] Comments Blood Pressure 138/88 04/26/2022 11:36 AM AIRBRUSH ARTIST PHOTOGRAPHY Pulse 91 04/26/2022 10:57 AM AIRBRUSH ARTIST PHOTOGRAPHY Temperature - - Respiratory Rate 16 04/26/2022 10:5 7 AM AIRBRUSH ARTIST PHOTOGRAPHY Oxygen Saturation - - Inhaled Oxygen Concentration - - Weight 110.9 kg (244 lb 6.4 oz) 023 10:57 AM AIRBRUSH ARTIST PHOTOGRAPHY Height 170.2 cm (5' 7 ) 04/26/2022 10:5 7 AM AIRBRUSH ARTIST PHOTOGRAPHY Body Mass Index 38.28 04/26/2022 10:57 AM AIRBRUSH ARTIST PHOTOGRAPHY Plan of Treatment Not on file Procedures Procedure Name Priority Date/Time Associated Diagnosis Comments EGFR Routine 05/10/2022 8:43 AM AIRBRUSH ARTIST PHOTOGRAPHY Hypertension associated with diabetes (HCC) Hyperkalemia LIPID PANEL Routine 04/26/2022 11:52 AM AIRBRUSH ARTIST PHOTOGRAPHY Type 1 diabetes mellitus with hyperglycemia (HCC) ALBUMIN CREATININE RATIO, URINE Routine 04/26/2022 11:52 AM AIRBRUSH ARTIST PHOTOGRAPHY Type 1 diabetes mellitus with hyperglycemia (HCC) Hypertension associated with diabetes (HCC) POCT HEMOGLOBIN A1C Routine 04/26/2022 1 1:08 AM AIRBRUSH ARTIST PHOTOGRAPHY Type 1 diabetes mellitus with hyperglycemia (HCC) THYROID FUNCTION CASCADE Routine 01/19/2021 2:58 PM CDT Type 1 diabetes mellitus with hyperglycemia (HCC) DIABETIC EYE EXAM Routine 04/14/2020 from Last 3 Months or Most Recently Relevant to Health Maintenance Results * eGFR (05/10/2022 8:43 AM AIRBRUSH ARTIST PHOTOGRAPHY) eGFR 39 mL/min/1. 73 m2 OMAR JOHNSON [...] last reviewed 2021. Blood 05/10/2022 8:43 AM AIRBRUSH ARTIST PHOTOGRAPHY 05/10/2022 4:12 PM AIRBRUSH ARTIST PHOTOGRAPHY us Annette Pitts ROUNDHOUSE FIRER/FIREMAN LAB BLOOD ORDERABLES Neena l Result Performing Organization Address City/[facility]/ZIP Co de Phone Number OMAR [address] Department [place] [address] * (ABNORMAL) Albumin Creatinine Ratio, Urine (04/26/2022 11:52 AM AIRBRUSH ARTIST PHOTOGRAPHY) Albumin Ur 3,167.1 mg/L OMAR JOHNSON Comment: Interpretive Data No reference range established. Current interpretive data was last revised 2018. Creatinine Ur 74.6 mg/dL OMAR JOHNSON Comment: Interpretive Data No reference range established. Current interpretive data was last revised 2018. Albumin Creatinine Ratio, Ur 4,245(H) 1 - 29 mg/g OMAR Urine 04/26/2022 11:5 2 AM AIRBRUSH ARTIST PHOTOGRAPHY 04/26/2022 8:36 PM AIRBRUSH ARTIST PHOTOGRAPHY us Annette Pitts ROUNDHOUSE FIRER/FIREMAN LAB URINE ORDERABLES Neena l Result OMAR [address] Department [place] [address] * (ABNORMAL) Lipid panel (04/26/2022 11:52 AM AIRBRUSH ARTIST PHOTOGRAPHY) Cholesterol 270(H) 30 - 199 mg/dL OMAR JOHNSON Comment: Interpretive Data Ages [...] on 2017. Non-HDL Cholesterol 228 mg/dL OMAR JOHNSON Comment: Interpretive Data Ages [...] last revised on 2017. Chol/HDL ratio 6 OMAR Blood 04/26/2022 11:5 2 AM AIRBRUSH ARTIST PHOTOGRAPHY 04/26/2022 8:36 PM AIRBRUSH ARTIST PHOTOGRAPHY Narrative OMAR - 04/26/2022 9:10 PM AIRBRUSH ARTIST PHOTOGRAPHY These lab test should be done fasting. This means do not eat or drink for at least 12 hours prior to getting your blood drawn. us Annette Pitts NP LAB BLOOD ORDERABLES Neena l Result OMAR [address] Department [place] [address] * POCT hemoglobin A1c (04/26/2022 11:08 AM AIRBRUSH ARTIST PHOTOGRAPHY) Hemoglobin A1C, POC 6.8 Blood 04/26/2022 11:0 8 AM AIRBRUSH ARTIST PHOTOGRAPHY us Annette R. Schleeper ROUNDHOUSE FIRER/FIREMAN POINT OF CARE TEST ORDERA BLES Final Result * TSH reflex to free T4 (01/19/2021 2:58 PM CDT) TSH 2.06 0.30 - 4.20 mcIUnit/mL OMAR ALEX Blood 01/19/2021 2:58 PM CDT 01/19/2021 8:50 PM CDT us Belgica Barth MD LAB BLOOD ORDERABLE S Final Result OMAR [address] [address] Department of Laboratories [place] [id number] * Diabetic Eye Exam (04/14/2020) us Historical Provider HEALTH MAINTENANCE Final Result from Last 3 Months or Most Recently Relevant to Health Maintenance Insurance Formerly named [facility] [place] [id number] [facility] PLAN [place]A [place] [id number] Care Teams Timber Feller Relationship Specialty Start Date End Date No, Physician PCP - General 10/01/21 Abdulkadir Leon MD Consulting Physician Urology 10/29/19
[2024-05-26 11:18] LABS: Hematocrit 24.7 % (42.0-52.0); Hemoglobin 7.9 g/dL (14.0-18.0); Mean Corpuscular Hemoglobin 28.3 pg (26-34); Mean Corpuscular Volume 88.5 fl (80-100); Mean Platelet Volume 9.2 fl (7.4-10.4); Platelet Count Result 466 k/mm3 (150-375); Red Blood Count 2.79 M/mm3 (4.6-6.20); White Blood Count 7.1 K/mm3 (4.5-10.0)
[2024-05-26 11:30] LABS: Albumin Level 3.2 g/dL (3.5-5.1); Anion Gap 14 mmol/L (4-12); Blood Urea Nitrogen 86 mg/dL (9-20); Carbon Dioxide 12 mmol/L (22-30); Chloride 114 mmol/L (98-107); Estimated Glomerular Filt Rate 6; Glucose 92 mg/dL (65-110); Phosphorus 9.7 mg/dL (2.5-4.5); Potassium 4.9 mmol/L (3.4-5.0); Sodium 140 mmol/L (137-145)
[2024-05-26 11:42] LABS: Creatinine Urine 64.7 mg/dL
[2024-05-26 11:43] LABS: Parathyroid Intact 959.1 pg/mL (14.5-75.2)
[2024-05-26 11:52] LABS: Total Protein Urine Random > 600 mg/dL; Ur Ttl Prot Creatinine Ratio > 9.27 mg/mg (0-0.20)
== END 2024-05-26 10:58 | disposition home or self-care (01) ==
PROVIDERS: Visit Provider Internal Medicine Nephrology
DX: N18.5 Chronic kidney disease, stage 5 (principal); E21.1 Secondary hyperparathyroidism, not elsewhere classified; E55.9 Vitamin D deficiency, unspecified
CPT/HCPCS: 36415; 80069; 82306; 82570; 83970; 84156; 85027

== ENCOUNTER 2024-08-11 10:17 | Outpatient (CLI) | payer BC, SELFPAY ==
--- OUTSIDE RECORDS SUMMARY | 2024-08-11 10:20 | XMS_ITS | Clinical Summary ---
Author Organization [facility] Address [address] [place] [address] Phone Care Team Providers Care Retail Selling Specialist Name Role Phone Piper Mohr APRN, JESSICA Primary Care Pro vider Allergies No known active allergies Medications sucralfate (CARAFATE) 1 GM/10ML Suspension Take 10 mL by mouth every 6 hours. 420 mL 0 01/25/20 15 Active Additional Information Patient not taking.Reported on 09/11/2015 Syringe/Needle, Disp, (SYRINGE 3CC/35YE8-1/2 ) 21G X 1-2 3 ML Misc [...] 01/27/20 17 Active B-D 3CC LUER-ALFREDO SYR 03ZA4-9/2 21G X 1-2 3 ML Misc USE [...] on file Legal Sex Male 3:29 AM AERIAL TRAM OPERATOR Gender Identity Not on file Sexual Orientation [...] 10:3 6 AM CDT us Piper Mohr MARINE PIPEFITTER HELPER, DATA ENTRY SUPERVISOR POINT OF CARE ROMY TING (MANUAL) Final Result * (ABNORMAL) CMP (COMPREHENSIVE METABOLIC PANEL) (11/02/2016 8:39 AM CDT) SODIUM 137 136 - 145 mmol/L 11/02/2016 9:31 AM CDT [facility] POTASSIUM 3.9 3.5 - 5.1 mmol/L 11/02/2016 9:31 AM CDT [facility] Comment: Specimen is hemolyzed. In vitro hemolysis could affect results. Clinical correlation advised. CHLORIDE 105 98 - 107 mmol/L 11/02/2016 9:31 AM CDT [facility] CO2, VENOUS 23 22 - 30 mmol/L 11/02/2016 9:31 AM CDT [facility] ANION GAP 9.0 <18.0 mmol/L 11/02/2016 9:31 AM CDT [facility] GLUCOSE 121(H) 70 - 99 mg/dL 11/02/2016 9:31 AM CDT [facility] BUN 8(L) 9 - 21 mg/dL 11/02/2016 9:31 AM CDT [facility] CREATININE, BLOOD 0.80 0.70 - 1.30 mg/dL 11/02/2016 9:31 AM CDT [facility] BUN/CREATININE RATIO 10(L) 12 - 20 ratio 11/02/2016 9:31 AM CDT [facility] TOTAL PROTEIN 7.5 6.3 - 8.2 g/dL 11/02/2016 9:31 AM CDT [facility] Comment: Specimen is hemolyzed. In vitro hemolysis could affect results. Clinical correlation advised. ALBUMIN 3.7 3.5 - 5.0 g/dL 11/02/2016 9:31 AM CDT [facility] A/G RATIO 1.0 1.0 - 2.2 11/02/2016 9:31 AM CDT [facility] CALCIUM 9.0 8.4 - 10.2 mg/dL 11/02/2016 9:31 AM CDT [facility] T BILI 0.2 0.2 - 1.2 mg/dL 11/02/2016 9:31 AM CDT [facility] Comment: Specimen is hemolyzed. In vitro hemolysis could affect results. Clinical correlation advised. SGOT (AST) 25 5 - 34 U/L 11/02/2016 9:31 AM CDT [facility] Comment: Specimen is hemolyzed. In vitro hemolysis could affect results. Clinical correlation advised. SGPT (ALT) 33 0 - 55 U/L 11/02/2016 9:31 AM CDT [facility] ALKALINE PHOSPHATASE 82 40 - 150 U/L 11/02/2016 9:31 AM CDT [facility] GFR, EST. NONAFRICAN >60 >=60 11/02/2016 9:31 AM CDT [facility] GFR, EST. >60 >=60 11/02/2016 9:31 AM T [facility] Comment: Creatinine Clearance is the preferred criteria for selecting drug dose adjustments in renally impaired patients. The GFR is provided as additional pertinent clinical information. GFR is reported in mL/min/1.73 sq m. Blood specimen (specimen) Venipuncture / Unknown 11/02/2016 8:39 AM CDT 11/02/2016 9:04 AM CDT us Ray Rodriguez MD CHEMISTRY ORDERABLES Final Result [facility] [address] [place] [address], [place] * DILATED EYE EXAM (08/15/2014) Leodan Edson Vallecilloorlin OD PROCEDURE/MINOR SURGICAL ORDERAB LES Final Result from Last 3 Months or Most Recently Relevant to Health Maintenance Insurance MEDICAID [place] Care Teams Retail Selling Specialist Relationship Specialty Start Date End Date Piper Mohr APRN, JESSICA PCP - General Certified Nurse Practitioner 06/12/14
--- OUTSIDE RECORDS SUMMARY | 2024-08-11 10:20 | XMS_ITS | Clinical Summary ---
Author Organization [facility] Physician Office Building [address] [place] [id number] Care Team Providers Care Sports Agent Name Role Phone Abdulkadir Leon MD Unavailable [phone] No, Physician Primary Care Provider [phone] Allergies No known active allergies Medications ONETOUCH [...] under the skin every 7 days Lot: [id number] Exp: 03/2023 3 pens 3 mL 1 [...] times a day before meals Sample lot [id number] exp 06/02/2023 x 1 pen 3 mL 3 Active semaglutide (OZEMPIC) 0.25 mg or 0.5 mg(2 mg/1.5 mL) pen injector injectionIndicatio ns:Type 1 diabetes mellitus with hyperglycemia (HCC) Inject 0.5 mg under the skin every 7 days [id number] exp 09/01/2024 x 2 pens 3 mL [...] 04/26/2022 Assessment & Plan (04/26/2022 11:43 AM ASSISTANT PROFESSOR OF PHILOSOPHY): Discussed healthy diet and importance of regular physical activity (20- 30min/day, 150min/wk). Has lost 19# since last appt 09/2021. He has changed diet & increased activity. Persistent proteinuria 10/01/2021 Assessment & Plan (10/01/2021 4:16 PM CDT): Referral placed to nephrology. Poor compliance with medication 01/19/2021 Hypertension associated with diabetes 12/27/2016 Assessment & Plan (04/26/2022 12:02 PM ASSISTANT PROFESSOR OF PHILOSOPHY): Chronic problem, currently taking lisinopril/hctz 40/50mg. Will [...] weeks Assessment & Plan (03/17/2020 3:04 PM ASSISTANT PROFESSOR OF PHILOSOPHY): Hypertension is improving with treatment Continue current [...] appointment. Assessment & Plan (04/30/2019 1:42 PM ASSISTANT PROFESSOR OF PHILOSOPHY): Hypertension is improving with treatment. Continue current [...] appointment. Assessment & Plan (05/02/2017 1:26 PM ASSISTANT PROFESSOR OF PHILOSOPHY): Hypertension is improving with treatment. Continue current [...] loss Assessment & Plan (03/17/2020 3:06 PM ASSISTANT PROFESSOR OF PHILOSOPHY): Continue statin therapy Assessment & Plan (01/01/2020 12:55 PM CDT): Continue statin therapy Assessment & Plan (11/04/2019 9:02 PM CDT): Continue statin therapy Assessment & Plan (06/11/2019 12:55 PM CDT): Continue statin therapy Assessment & Plan (04/30/2019 1:41 PM ASSISTANT PROFESSOR OF PHILOSOPHY): Continue statin therapy Assessment & Plan (10/16/2018 1:08 PM CDT): Improving Continue statin therapy Will follow up in 6 months Assessment & Plan (09/04/2018 10:37 PM CDT): Lipid abnormalities are worsening. Nutritional counseling was provided. and Pharmacotherapy as ordered. Lipids will be reassessed in 6 months. Assessment & Plan (05/02/2017 1:24 PM ASSISTANT PROFESSOR OF PHILOSOPHY): On statin therapy Advised low fat/chol diet [...] 12/04 Assessment & Plan (04/26/2022 11:54 AM ASSISTANT PROFESSOR OF PHILOSOPHY): Chronic problem, great improvement. Now at goal. [...] copay Assessment & Plan (03/17/2020 3:07 PM ASSISTANT PROFESSOR OF PHILOSOPHY): Chronic, uncontrolled , worsening HbA1c - 10.7 [...] orders. Assessment & Plan (04/30/2019 1:41 PM ASSISTANT PROFESSOR OF PHILOSOPHY): Diabetes is improving slowly, but not as [...] month. Assessment & Plan (05/02/2017 1:24 PM ASSISTANT PROFESSOR OF PHILOSOPHY): Lab Results Component Value Date HGBA1C 11.7 [...] regular exercise. Body mass index 40.0-44.9, adult ([facility]) 10/01/2021 04/26/2022 Class 3 severe obesity due [...] weekly Assessment & Plan (03/17/2020 3:05 PM ASSISTANT PROFESSOR OF PHILOSOPHY): slowly improving possible due to ozempic effect [...] weekly Assessment & Plan (04/30/2019 1:41 PM ASSISTANT PROFESSOR OF PHILOSOPHY): Chronic, worsening Discussed about healthy lifestyle habits [...] discussed. Assessment & Plan (05/02/2017 1:26 PM ASSISTANT PROFESSOR OF PHILOSOPHY): Obesity is unchanged. Discussed the patient's BMI. [...] 10/16/2018 Assessment & Plan (05/02/2017 1:25 PM ASSISTANT PROFESSOR OF PHILOSOPHY): Reviewed all labsredults - possible low normal [...] Comments Blood Pressure 138/88 04/26/2022 11:36 AM ASSISTANT PROFESSOR OF PHILOSOPHY Pulse 91 04/26/2022 10:57 AM ASSISTANT PROFESSOR OF PHILOSOPHY Temperature - - Respiratory Rate 16 04/26/2022 10:5 7 AM ASSISTANT PROFESSOR OF PHILOSOPHY Oxygen Saturation - - Inhaled Oxygen Concentration - - Weight 110.9 kg (244 lb 6.4 oz) 023 10:57 AM ASSISTANT PROFESSOR OF PHILOSOPHY Height 170.2 cm (5' 7 ) 04/26/2022 10:5 7 AM ASSISTANT PROFESSOR OF PHILOSOPHY Body Mass Index 38.28 04/26/2022 10:57 AM ASSISTANT PROFESSOR OF PHILOSOPHY Plan of Treatment Health Maintenance Due Date [...] Diagnosis Comments EGFR Routine 05/10/2022 8:43 AM ASSISTANT PROFESSOR OF PHILOSOPHY Hypertension associated with diabetes (HCC) Hyperkalemia LIPID PANEL Routine 04/26/2022 11:52 AM ASSISTANT PROFESSOR OF PHILOSOPHY Type 1 diabetes mellitus with hyperglycemia (HCC) ALBUMIN CREATININE RATIO, URINE Routine 04/26/2022 11:52 AM ASSISTANT PROFESSOR OF PHILOSOPHY Type 1 diabetes mellitus with hyperglycemia (HCC) Hypertension associated with diabetes (HCC) POCT HEMOGLOBIN A1C Routine 04/26/2022 1 1:08 AM ASSISTANT PROFESSOR OF PHILOSOPHY Type 1 diabetes mellitus with hyperglycemia (HCC) THYROID FUNCTION CASCADE Routine 01/19/2021 2:58 PM CDT Type 1 diabetes mellitus with hyperglycemia (HCC) DIABETIC EYE EXAM Routine 04/14/2020 from Last 3 Months or Most Recently Relevant to Health Maintenance Results * eGFR (05/10/2022 8:43 AM ASSISTANT PROFESSOR OF PHILOSOPHY) eGFR 39 mL/min/1. 73 m2 OMAR JOHNSON [...] last reviewed 2021. Blood 05/10/2022 8:43 AM ASSISTANT PROFESSOR OF PHILOSOPHY 05/10/2022 4:12 PM ASSISTANT PROFESSOR OF PHILOSOPHY us Annette Pitts UNIT TECHNICIAN LAB BLOOD ORDERABLES Neena l Result Performing Organization Address [facility] Co de Phone Number OMAR JOHNSON [address] [address] [place] [address] * (ABNORMAL) Albumin Creatinine Ratio, Urine (04/26/2022 11:52 AM ASSISTANT PROFESSOR OF PHILOSOPHY) Albumin Ur 3,167.1 mg/L OMAR Comment: Interpretive Data No reference range established. Current interpretive data was last revised 2018. Creatinine Ur 74.6 mg/dL OMAR Comment: Interpretive Data No reference range established. Current interpretive data was last revised 2018. Albumin Creatinine Ratio, Ur 4,245(H) 1 - 29 mg/g OMAR Urine 04/26/2022 11:5 2 AM ASSISTANT PROFESSOR OF PHILOSOPHY 04/26/2022 8:36 PM ASSISTANT PROFESSOR OF PHILOSOPHY us Annette Pitts NP LAB URINE ORDERABLES Neena l Result Performing Organization Address [facility] Co de Phone Number OMAR ALEX [address] [address] [facility] [place] [address] * (ABNORMAL) Lipid panel (04/26/2022 11:52 AM ASSISTANT PROFESSOR OF PHILOSOPHY) Cholesterol 270(H) 30 - 199 mg/dL OMAR [...] last revised on 2017. Chol/HDL ratio 6 [facility] Blood 04/26/2022 11:5 2 AM ASSISTANT PROFESSOR OF PHILOSOPHY 04/26/2022 8:36 PM ASSISTANT PROFESSOR OF PHILOSOPHY Narrative [facility] - 04/26/2022 9:10 PM ASSISTANT PROFESSOR OF PHILOSOPHY These lab test should be done fasting. This means do not eat or drink for at least 12 hours prior to getting your blood drawn. Annette Pitts NP LAB BLOOD ORDERABLES Neena l Result OMAR [address] [address] Department [place] [address] * POCT hemoglobin A1c (04/26/2022 11:08 AM ASSISTANT PROFESSOR OF PHILOSOPHY) Hemoglobin A1C, POC 6.8 Blood 04/26/2022 11:0 8 AM ASSISTANT PROFESSOR OF PHILOSOPHY us Annette Pitts NP POINT OF CARE TEST ORDERA BLES Final Result * TSH reflex to free T4 (01/19/2021 2:58 PM CDT) TSH 2.06 0.30 - 4.20 mcIUnit/mL OMAR Blood 01/19/2021 2:58 PM CDT 01/19/2021 8:50 PM CDT Belgica Barth MD LAB [place] [address] [address] Department [place] [address] * Diabetic Eye Exam (04/14/2020) us Historical Provider HEALTH MAINTENANCE Final Result from Last 3 Months or Most Recently Relevant to Health Maintenance Insurance [facility] PLAN DONA WINCHESTER [facility] Care Teams Sports Agent Relationship Specialty Start Date End Date No, Physician PCP - General 10/01/21 Abdulkadir Leon MD Consulting Physician Urology 10/29/19
--- OUTSIDE RECORDS SUMMARY | 2024-08-11 10:20 | XMS_ITS | Referral Summary ---
Author Organization [facility] Physician Office Building [address] [place] [address] Care Team Providers Care Terrazzo Worker Helper Name Role Phone Abdulkadir Leon MD Unavailable [phone] No, Physician Primary Care Provider [phone] Allergies No known active allergies Medications ONETOUCH [...] under the skin every 7 days Lot: [id number] Exp: 03/2023 3 pens 3 mL 1 [...] times a day before meals Sample lot [id number] exp 06/02/2023 x 1 pen 3 mL 3 Active semaglutide (OZEMPIC) 0.25 mg or 0.5 mg(2 mg/1.5 mL) pen injector injectionIndicatio ns:Type 1 diabetes mellitus with hyperglycemia (HCC) Inject 0.5 mg under the skin every 7 days [id number] exp 09/01/2024 x 2 pens 3 mL [...] 04/26/2022 Assessment & Plan (04/26/2022 11:43 AM TRUCKLOAD CHECKER): Discussed healthy diet and importance of regular physical activity (20- 30min/day, 150min/wk). Has lost 19# since last appt 09/2021. He has changed diet & increased activity. Persistent proteinuria 10/01/2021 Assessment & Plan (10/01/2021 4:16 PM CDT): Referral placed to nephrology. Poor compliance with medication 01/19/2021 Hypertension associated with diabetes 12/27/2016 Assessment & Plan (04/26/2022 12:02 PM TRUCKLOAD CHECKER): Chronic problem, currently taking lisinopril/hctz 40/50mg. Will [...] weeks Assessment & Plan (03/17/2020 3:04 PM TRUCKLOAD CHECKER): Hypertension is improving with treatment Continue current [...] appointment. Assessment & Plan (04/30/2019 1:42 PM TRUCKLOAD CHECKER): Hypertension is improving with treatment. Continue current [...] appointment. Assessment & Plan (05/02/2017 1:26 PM TRUCKLOAD CHECKER): Hypertension is improving with treatment. Continue current [...] loss Assessment & Plan (03/17/2020 3:06 PM TRUCKLOAD CHECKER): Continue statin therapy Assessment & Plan (01/01/2020 12:55 PM CDT): Continue statin therapy Assessment & Plan (11/04/2019 9:02 PM CDT): Continue statin therapy Assessment & Plan (06/11/2019 12:55 PM CDT): Continue statin therapy Assessment & Plan (04/30/2019 1:41 PM TRUCKLOAD CHECKER): Continue statin therapy Assessment & Plan (10/16/2018 1:08 PM CDT): Improving Continue statin therapy Will follow up in 6 months Assessment & Plan (09/04/2018 10:37 PM CDT): Lipid abnormalities are worsening. Nutritional counseling was provided. and Pharmacotherapy as ordered. Lipids will be reassessed in 6 months. Assessment & Plan (05/02/2017 1:24 PM TRUCKLOAD CHECKER): On statin therapy Advised low fat/chol diet [...] 12/04 Assessment & Plan (04/26/2022 11:54 AM TRUCKLOAD CHECKER): Chronic problem, great improvement. Now at goal. [...] copay Assessment & Plan (03/17/2020 3:07 PM TRUCKLOAD CHECKER): Chronic, uncontrolled , worsening HbA1c - 10.7 [...] orders. Assessment & Plan (04/30/2019 1:41 PM TRUCKLOAD CHECKER): Diabetes is improving slowly, but not as [...] month. Assessment & Plan (05/02/2017 1:24 PM TRUCKLOAD CHECKER): Lab Results Component Value Date HGBA1C 11.7 [...] regular exercise. Body mass index 40.0-44.9, adult ([facility]) 10/01/2021 04/26/2022 Class 3 severe obesity [...] weekly Assessment & Plan (03/17/2020 3:05 PM TRUCKLOAD CHECKER): slowly improving possible due to ozempic effect [...] weekly Assessment & Plan (04/30/2019 1:41 PM TRUCKLOAD CHECKER): Chronic, worsening Discussed about healthy lifestyle habits [...] discussed. Assessment & Plan (05/02/2017 1:26 PM TRUCKLOAD CHECKER): Obesity is unchanged. Discussed the patient's BMI. [...] 10/16/2018 Assessment & Plan (05/02/2017 1:25 PM TRUCKLOAD CHECKER): Reviewed all labsredults - possible low normal [...] Comments Blood Pressure 138/88 04/26/2022 11:36 AM TRUCKLOAD CHECKER Pulse 91 04/26/2022 10:57 AM TRUCKLOAD CHECKER Temperature - - Respiratory Rate 16 04/26/2022 10:5 7 AM TRUCKLOAD CHECKER Oxygen Saturation - - Inhaled Oxygen Concentration - - Weight 110.9 kg (244 lb 6.4 oz) 023 10:57 AM TRUCKLOAD CHECKER Height 170.2 cm (5' 7 ) 04/26/2022 10:5 7 AM TRUCKLOAD CHECKER Body Mass Index 38.28 04/26/2022 10:57 AM TRUCKLOAD CHECKER Plan of Treatment Not on file Procedures Procedure Name Priority Date/Time Associated Diagnosis Comments EGFR Routine 05/10/2022 8:43 AM TRUCKLOAD CHECKER Hypertension associated with diabetes (HCC) Hyperkalemia LIPID PANEL Routine 04/26/2022 11:52 AM TRUCKLOAD CHECKER Type 1 diabetes mellitus with hyperglycemia (HCC) ALBUMIN CREATININE RATIO, URINE Routine 04/26/2022 11:52 AM TRUCKLOAD CHECKER Type 1 diabetes mellitus with hyperglycemia (HCC) Hypertension associated with diabetes (HCC) POCT HEMOGLOBIN A1C Routine 04/26/2022 1 1:08 AM TRUCKLOAD CHECKER Type 1 diabetes mellitus with hyperglycemia (HCC) THYROID FUNCTION CASCADE Routine 01/19/2021 2:58 PM CDT Type 1 diabetes mellitus with hyperglycemia (HCC) DIABETIC EYE EXAM Routine 04/14/2020 from Last 3 Months or Most Recently Relevant to Health Maintenance Results * eGFR (05/10/2022 8:43 AM TRUCKLOAD CHECKER) eGFR 39 mL/min/1. 73 m2 OMAR JOHNSON [...] last reviewed 2021. Blood 05/10/2022 8:43 AM TRUCKLOAD CHECKER 05/10/2022 4:12 PM TRUCKLOAD CHECKER us Annette Pitts AUTOMOBILE DETAILER LAB BLOOD ORDERABLES Neena l Result Performing Organization Address City/[facility]/ZIP Co de Phone Number OMAR [address] [address] Department [place] [address] * (ABNORMAL) Albumin Creatinine Ratio, Urine (04/26/2022 11:52 AM TRUCKLOAD CHECKER) Albumin Ur 3,167.1 mg/L OMAR JOHNSON Comment: Interpretive Data No reference range established. Current interpretive data was last revised 2018. Creatinine Ur 74.6 mg/dL OMAR JOHNSON Comment: Interpretive Data No reference range established. Current interpretive data was last revised 2018. Albumin Creatinine Ratio, Ur 4,245(H) 1 - 29 mg/g OMAR Urine 04/26/2022 11:5 2 AM TRUCKLOAD CHECKER 04/26/2022 8:36 PM TRUCKLOAD CHECKER us Annette Pitts AUTOMOBILE DETAILER LAB URINE ORDERABLES Neena l Result OMAR [address] [address] Department [place] [address] * (ABNORMAL) Lipid panel (04/26/2022 11:52 AM TRUCKLOAD CHECKER) Cholesterol 270(H) 30 - 199 mg/dL OMAR [...] 6 OMAR Blood 04/26/2022 11:5 2 AM TRUCKLOAD CHECKER 04/26/2022 8:36 PM TRUCKLOAD CHECKER Narrative OMAR - 04/26/2022 9:10 PM TRUCKLOAD CHECKER These lab test should be done fasting. This means do not eat or drink for at least 12 hours prior to getting your blood drawn. us Annette Pitts NP LAB BLOOD ORDERABLES Neena l Result OMAR [address] [address] Department [place] [address] * POCT hemoglobin A1c (04/26/2022 11:08 AM TRUCKLOAD CHECKER) Hemoglobin A1C, POC 6.8 Blood 04/26/2022 11:0 8 AM TRUCKLOAD CHECKER us Annette R. Schleeper AUTOMOBILE DETAILER POINT OF CARE TEST ORDERA BLES Final Result * TSH reflex to free T4 (01/19/2021 2:58 PM CDT) TSH 2.06 0.30 - 4.20 mcIUnit/mL OMAR ALEX Blood 01/19/2021 2:58 PM CDT 01/19/2021 8:50 PM CDT us Belgica Barth MD LAB BLOOD ORDERABLE S Final Result OMAR [address] [address] Department of Laboratories [place] [id number] * Diabetic Eye Exam (04/14/2020) us Historical Provider HEALTH MAINTENANCE Final Result from Last 3 Months or Most Recently Relevant to Health Maintenance Insurance [facility] [place] [id number] [facility] [employer] DONA [place] [id number] Care Teams Terrazzo Worker Helper Relationship Specialty Start Date End Date No, Physician PCP - General 10/01/21 Abdulkadir Leon MD Consulting Physician Urology 10/29/19
[2024-08-11 10:48] LABS: Hematocrit 23.3 % (42.0-52.0); Hemoglobin 7.2 g/dL (14.0-18.0); Mean Corpuscular HGB Conc 30.9 g/dl (32-36); Mean Corpuscular Hemoglobin 27.8 pg (26-34); Mean Platelet Volume 9.8 fl (7.4-10.4); Platelet Count Result 429 k/mm3 (150-375); Red Blood Count 2.59 M/mm3 (4.6-6.20); Red Cell Distribution Width 13.6 % (11.5-14.5); White Blood Count 8.3 K/mm3 (4.5-10.0)
[2024-08-11 10:49] LABS: Creatinine Urine 60.3 mg/dL
[2024-08-11 10:52] LABS: Albumin Level 3.2 g/dL (3.5-5.1); Anion Gap 11 mmol/L (4-12); Blood Urea Nitrogen 73 mg/dL (9-20); Calcium 7.3 mg/dL (8.4-10.2); Carbon Dioxide 14 mmol/L (22-30); Chloride 115 mmol/L (98-107); Estimated Glomerular Filt Rate 5; Glucose 109 mg/dL (65-110); Phosphorus 10.4 mg/dL (2.5-4.5); Potassium 5.4 mmol/L (3.4-5.0); Sodium 140 mmol/L (137-145)
[2024-08-11 10:57] LABS: Total Protein Urine Random > 600 mg/dL; Ur Ttl Prot Creatinine Ratio > 9.95 mg/mg (0-0.20)
[2024-08-11 11:04] LABS: Parathyroid Intact 732.9 pg/mL (14.5-75.2)
== END 2024-08-11 10:18 | disposition home or self-care (01) ==
LOC: ANHLAB 10:19
PROVIDERS: Visit Provider Internal Medicine Nephrology
DX: N18.5 Chronic kidney disease, stage 5 (principal)
CPT/HCPCS: 36415; 80069; 82570; 83970; 84156; 85027

== ENCOUNTER 2024-08-29 15:55 | Outpatient (CLI) | payer BC, SELFPAY ==
--- OUTSIDE RECORDS SUMMARY | 2024-08-29 16:02 | XMS_ITS | Referral Summary ---
Author Organization [facility] Physician Office Building [address] [place] [id number] Care Team Providers Care Can Tester Name Role Phone Abdulkadir Leon MD Unavailable [phone] No, Physician Primary Care Provider [phone] Allergies No known active allergies Medications ONETOUCH [...] (BMI) of 40.0 to 44.9 in adult Inject 1 mg under the skin every 7 days Lot: [id number] Exp: 03/2023 3 pens 3 mL 1 Active OneTouch Verio test strips stripIndications:T ype 1 diabetes mellitus with hyperglycemia (HCC) USE TO TEST BLOOD SUGAR FOUR TIMES A DAY, BEFORE MEALS AND AT BEDTIME 400 each 1 2 Active BD Janna 2nd Gen Pen Needle 32 gauge x 5/32 needleIndications: Type 1 diabetes mellitus with hyperglycemia [...] times a day before meals Sample lot [id number] exp 06/02/2023 x 1 pen 3 mL 3 Active semaglutide (OZEMPIC) 0.25 mg or 0.5 mg(2 mg/1.5 mL) pen injector injectionIndicatio ns:Type 1 diabetes mellitus with hyperglycemia (HCC) Inject 0.5 mg under the skin every 7 days [id number] exp 09/01/2024 x 2 pens 3 mL [...] 04/26/2022 Assessment & Plan (04/26/2022 11:43 AM MOUNTAIN GUIDE): Discussed healthy diet and importance of regular physical activity (20- 30min/day, 150min/wk). Has lost 19# since last appt 09/2021. He has changed diet & increased activity. Persistent proteinuria 10/01/2021 Assessment & Plan (10/01/2021 4:16 PM CDT): Referral placed to nephrology. Poor compliance with medication 01/19/2021 Hypertension associated with diabetes 12/27/2016 Assessment & Plan (04/26/2022 12:02 PM MOUNTAIN GUIDE): Chronic problem, currently taking lisinopril/hctz 40/50mg. Will [...] weeks Assessment & Plan (03/17/2020 3:04 PM MOUNTAIN GUIDE): Hypertension is improving with treatment Continue current [...] appointment. Assessment & Plan (04/30/2019 1:42 PM MOUNTAIN GUIDE): Hypertension is improving with treatment. Continue current [...] appointment. Assessment & Plan (05/02/2017 1:26 PM MOUNTAIN GUIDE): Hypertension is improving with treatment. Continue current [...] loss Assessment & Plan (03/17/2020 3:06 PM MOUNTAIN GUIDE): Continue statin therapy Assessment & Plan (01/01/2020 12:55 PM CDT): Continue statin therapy Assessment & Plan (11/04/2019 9:02 PM CDT): Continue statin therapy Assessment & Plan (06/11/2019 12:55 PM CDT): Continue statin therapy Assessment & Plan (04/30/2019 1:41 PM MOUNTAIN GUIDE): Continue statin therapy Assessment & Plan (10/16/2018 1:08 PM CDT): Improving Continue statin therapy Will follow up in 6 months Assessment & Plan (09/04/2018 10:37 PM CDT): Lipid abnormalities are worsening. Nutritional counseling was provided. and Pharmacotherapy as ordered. Lipids will be reassessed in 6 months. Assessment & Plan (05/02/2017 1:24 PM MOUNTAIN GUIDE): On statin therapy Advised low fat/chol diet [...] 12/04 Assessment & Plan (04/26/2022 11:54 AM MOUNTAIN GUIDE): Chronic problem, great improvement. Now at goal. [...] SQ weekly - follow up with Marycruz CARCAMO in 6 weeks Counseled on portion , [...] copay Assessment & Plan (03/17/2020 3:07 PM MOUNTAIN GUIDE): Chronic, uncontrolled , worsening HbA1c - 10.7 [...] orders. Assessment & Plan (04/30/2019 1:41 PM MOUNTAIN GUIDE): Diabetes is improving slowly, but not as [...] month. Assessment & Plan (05/02/2017 1:24 PM MOUNTAIN GUIDE): Lab Results Component Value Date HGBA1C 11.7 [...] regular exercise. Body mass index 40.0-44.9, adult ([facility]) 10/01/2021 04/26/2022 Class 3 severe obesity due [...] weekly Assessment & Plan (03/17/2020 3:05 PM MOUNTAIN GUIDE): slowly improving possible due to ozempic effect [...] weekly Assessment & Plan (04/30/2019 1:41 PM MOUNTAIN GUIDE): Chronic, worsening Discussed about healthy lifestyle habits [...] discussed. Assessment & Plan (05/02/2017 1:26 PM MOUNTAIN GUIDE): Obesity is unchanged. Discussed the patient's BMI. [...] 10/16/2018 Assessment & Plan (05/02/2017 1:25 PM MOUNTAIN GUIDE): Reviewed all labsredults - possible low normal [...] Comments Blood Pressure 138/88 04/26/2022 11:36 AM MOUNTAIN GUIDE Pulse 91 04/26/2022 10:57 AM MOUNTAIN GUIDE Temperature - - Respiratory Rate 16 04/26/2022 10:5 7 AM MOUNTAIN GUIDE Oxygen Saturation - - Inhaled Oxygen Concentration - - Weight 110.9 kg (244 lb 6.4 oz) 023 10:57 AM MOUNTAIN GUIDE Height 170.2 cm (5' 7) 04/26/2022 10:5 7 AM MOUNTAIN GUIDE Body Mass Index 38.28 04/26/2022 10:57 AM MOUNTAIN GUIDE Plan of Treatment Not on file Procedures Procedure Name Priority Date/Time Associated Diagnosis Comments EGFR Routine 05/10/2022 8:43 AM MOUNTAIN GUIDE Hypertension associated with diabetes (HCC) Hyperkalemia LIPID PANEL Routine 04/26/2022 11:52 AM MOUNTAIN GUIDE Type 1 diabetes mellitus with hyperglycemia (HCC) ALBUMIN CREATININE RATIO, URINE Routine 04/26/2022 11:52 AM MOUNTAIN GUIDE Type 1 diabetes mellitus with hyperglycemia (HCC) Hypertension associated with diabetes (HCC) POCT HEMOGLOBIN A1C Routine 04/26/2022 1 1:08 AM MOUNTAIN GUIDE Type 1 diabetes mellitus with hyperglycemia (HCC) THYROID FUNCTION CASCADE Routine 01/19/2021 2:58 PM CDT Type 1 diabetes mellitus with hyperglycemia (HCC) DIABETIC EYE EXAM Routine 04/14/2020 from Last 3 Months or Most Recently Relevant to Health Maintenance Results * eGFR (05/10/2022 8:43 AM MOUNTAIN GUIDE) eGFR 39 mL/min/1. 73 m2 OMAR JOHNSON [...] last reviewed 2021. Blood 05/10/2022 8:43 AM MOUNTAIN GUIDE 05/10/2022 4:12 PM MOUNTAIN GUIDE us Annette Pitts SUPERVISOR POLICY CHANGE CLERKS LAB BLOOD ORDERABLES Neena l Result Performing Organization Address City/[facility]/ZIP Co de Phone Number OMAR [address] [address] Department [place] [address] * (ABNORMAL) Albumin Creatinine Ratio, Urine (04/26/2022 11:52 AM MOUNTAIN GUIDE) Albumin Ur 3,167.1 mg/L OMAR Comment: Interpretive Data No reference range established. Current interpretive data was last revised 2018. Creatinine Ur 74.6 mg/dL OMAR JOHNSON Comment: Interpretive Data No reference range established. Current interpretive data was last revised 2018. Albumin Creatinine Ratio, Ur 4,245(H) 1 - 29 mg/g OMAR Urine 04/26/2022 11:5 2 AM MOUNTAIN GUIDE 04/26/2022 8:36 PM MOUNTAIN GUIDE us Annette Pitts SUPERVISOR POLICY CHANGE CLERKS LAB URINE ORDERABLES Neena l Result OMAR JOHNSON [address] [facility] Department [place] [address] * (ABNORMAL) Lipid panel (04/26/2022 11:52 AM MOUNTAIN GUIDE) Cholesterol 270(H) 30 - 199 mg/dL OMAR [...] 6 OMAR Blood 04/26/2022 11:5 2 AM MOUNTAIN GUIDE 04/26/2022 8:36 PM MOUNTAIN GUIDE Narrative OMAR JOHNSON - 04/26/2022 9:10 PM MOUNTAIN GUIDE These lab test should be done fasting. This means do not eat or drink for at least 12 hours prior to getting your blood drawn. us Annette Pitts NP LAB BLOOD ORDERABLES Neena l Result OMAR [address] [address] Department [place] [address] * POCT hemoglobin A1c (04/26/2022 11:08 AM MOUNTAIN GUIDE) Hemoglobin A1C, POC 6.8 Blood 04/26/2022 11:0 8 AM MOUNTAIN GUIDE us Annette Pitts SUPERVISOR POLICY CHANGE CLERKS POINT OF CARE TEST ORDERA BLES Final Result * TSH reflex to free T4 (01/19/2021 2:58 PM CDT) TSH 2.06 0.30 - 4.20 mcIUnit/mL SHANNADUANE CH Blood 01/19/2021 2:58 PM CDT 01/19/2021 8:50 PM CDT us Belgica Barth MD LAB BLOOD ORDERABLE S Final Result OMAR [address] [address] Department [place] [address] * Diabetic Eye Exam (04/14/2020) us Historical Provider HEALTH MAINTENANCE Final Result from Last 3 Months or Most Recently Relevant to Health Maintenance Insurance [place]A [place] [id number] [id number] Care Teams Can Tester Relationship Specialty Start Date End Date No, Physician PCP - General 10/01/21 Abdulkadir Leon MD Consulting Physician Urology 10/29/19
--- OUTSIDE RECORDS SUMMARY | 2024-08-29 16:02 | XMS_ITS | Clinical Summary ---
Author Organization [facility] Address [address] [place] [address] Phone Care Team Providers Care Protective Services Officer Name Role Phone Piper Mohr APRN, JESSICA Primary Care Pro vider Allergies No known active allergies Medications sucralfate (CARAFATE) 1 GM/10ML Suspension Take 10 mL by mouth every 6 hours. 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 In vitro hemolysis could affect results. Clinical correlation advised. CHLORIDE 105 98 - 107 mmol/L 11/02/2016 9:31 AM CDT [facility] CO2, VENOUS 23 22 - 30 mmol/L 11/02/2016 9:31 AM CDT [facility] ANION GAP 9.0 <18.0 mmol/L 11/02/2016 9:31 AM CDT [facility] GLUCOSE 121(H) 70 - 99 mg/dL 11/02/2016 9:31 AM CDT [facility] BUN 8(L) 9 - 21 mg/dL 11/02/2016 9:31 AM CDT [facility] CREATININE, BLOOD 0.80 0.70 - 1.30 mg/dL 11/02/2016 9:31 AM CDT [facility] BUN/CREATININE RATIO 10(L) 12 - 20 ratio 11/02/2016 9:31 AM CDT [facility] TOTAL PROTEIN 7.5 6.3 - 8.2 g/dL 11/02/2016 9:31 AM CDT [facility] Comment: Specimen is hemolyzed. In vitro hemolysis could affect results. Clinical correlation advised. ALBUMIN 3.7 3.5 - 5.0 g/dL 11/02/2016 9:31 AM CDT [facility] A/G RATIO 1.0 1.0 - 2.2 11/02/2016 9:31 AM CDT [facility] CALCIUM 9.0 8.4 - 10.2 mg/dL 11/02/2016 9:31 AM CDT [facility] T BILI 0.2 0.2 - 1.2 mg/dL 11/02/2016 9:31 AM CDT [facility] Comment: Specimen is hemolyzed. In vitro hemolysis could affect results. Clinical correlation advised. SGOT (AST) 25 5 - 34 U/L 11/02/2016 9:31 AM CDT [facility] Comment: Specimen is hemolyzed. In vitro hemolysis could affect results. Clinical correlation advised. SGPT (ALT) 33 0 - 55 U/L 11/02/2016 9:31 AM CDT [facility] ALKALINE PHOSPHATASE 82 40 - 150 U/L 11/02/2016 9:31 AM CDT [facility] GFR, EST. NONAFRICAN >60 >=60 11/02/2016 9:31 AM CDT [facility] GFR, EST. >60 >=60 11/02/2016 9:31 AM T [facility] Comment: Creatinine Clearance is the preferred criteria for selecting drug dose adjustments in renally impaired patients. The GFR is provided as additional pertinent clinical information. GFR is reported in mL/min/1.73 sq m. Blood specimen (specimen) Venipuncture / Unknown 11/02/2016 8:39 AM CDT 11/02/2016 9:04 AM CDT us Ray Rodriguez MD CHEMISTRY ORDERABLES Final Result [facility] [address] [place] [address], [place] * DILATED EYE EXAM (08/15/2014) Leodan Edson Vallecilloorlin OD PROCEDURE/MINOR SURGICAL ORDERAB LES Final Result from Last 3 Months or Most Recently Relevant to Health Maintenance Insurance [place]ICAID [place] Care Teams Protective Services Officer Relationship Specialty Start Date End Date Piper Mohr APRN, JESSICA PCP - General Certified Nurse Practitioner 06/12/14
--- OUTSIDE RECORDS SUMMARY | 2024-08-29 16:02 | XMS_ITS | Clinical Summary ---
Author Organization [facility] [address] [place] [id number] Care Team Providers Care Director Digital Marketing Name Role Phone Abdulkadir Leon MD Unavailable [phone] No, Physician Primary Care Provider [phone] Allergies No known active allergies Medications ONETOUCH [...] under the skin every 7 days Lot: [id number] Exp: 03/2023 3 pens 3 mL 1 [...] times a day before meals Sample lot [id number] exp 06/02/2023 x 1 pen 3 mL 3 Active semaglutide (OZEMPIC) 0.25 mg or 0.5 mg(2 mg/1.5 mL) pen injector injectionIndicatio ns:Type 1 diabetes mellitus with hyperglycemia (HCC) Inject 0.5 mg under the skin every 7 days [id number] exp 09/01/2024 x 2 pens 3 mL [...] 04/26/2022 Assessment & Plan (04/26/2022 11:43 AM FIELD SERVICE ENGINEER): Discussed healthy diet and importance of regular physical activity (20- 30min/day, 150min/wk). Has lost 19# since last appt 09/2021. He has changed diet & increased activity. Persistent proteinuria 10/01/2021 Assessment & Plan (10/01/2021 4:16 PM CDT): Referral placed to nephrology. Poor compliance with medication 01/19/2021 Hypertension associated with diabetes 12/27/2016 Assessment & Plan (04/26/2022 12:02 PM FIELD SERVICE ENGINEER): Chronic problem, currently taking lisinopril/hctz 40/50mg. Will [...] weeks Assessment & Plan (03/17/2020 3:04 PM FIELD SERVICE ENGINEER): Hypertension is improving with treatment Continue current [...] appointment. Assessment & Plan (04/30/2019 1:42 PM FIELD SERVICE ENGINEER): Hypertension is improving with treatment. Continue current [...] appointment. Assessment & Plan (05/02/2017 1:26 PM FIELD SERVICE ENGINEER): Hypertension is improving with treatment. Continue current [...] loss Assessment & Plan (03/17/2020 3:06 PM FIELD SERVICE ENGINEER): Continue statin therapy Assessment & Plan (01/01/2020 12:55 PM CDT): Continue statin therapy Assessment & Plan (11/04/2019 9:02 PM CDT): Continue statin therapy Assessment & Plan (06/11/2019 12:55 PM CDT): Continue statin therapy Assessment & Plan (04/30/2019 1:41 PM FIELD SERVICE ENGINEER): Continue statin therapy Assessment & Plan (10/16/2018 1:08 PM CDT): Improving Continue statin therapy Will follow up in 6 months Assessment & Plan (09/04/2018 10:37 PM CDT): Lipid abnormalities are worsening. Nutritional counseling was provided. and Pharmacotherapy as ordered. Lipids will be reassessed in 6 months. Assessment & Plan (05/02/2017 1:24 PM FIELD SERVICE ENGINEER): On statin therapy Advised low fat/chol diet [...] 12/04 Assessment & Plan (04/26/2022 11:54 AM FIELD SERVICE ENGINEER): Chronic problem, great improvement. Now at goal. [...] copay Assessment & Plan (03/17/2020 3:07 PM FIELD SERVICE ENGINEER): Chronic, uncontrolled , worsening HbA1c - 10.7 [...] orders. Assessment & Plan (04/30/2019 1:41 PM FIELD SERVICE ENGINEER): Diabetes is improving slowly, but not as [...] month. Assessment & Plan (05/02/2017 1:24 PM FIELD SERVICE ENGINEER): Lab Results Component Value Date HGBA1C 11.7 [...] regular exercise. Body mass index 40.0-44.9, adult ([facility]) 10/01/2021 04/26/2022 Class 3 severe [...] weekly Assessment & Plan (03/17/2020 3:05 PM FIELD SERVICE ENGINEER): slowly improving possible due to ozempic effect [...] weekly Assessment & Plan (04/30/2019 1:41 PM FIELD SERVICE ENGINEER): Chronic, worsening Discussed about healthy lifestyle habits [...] discussed. Assessment & Plan (05/02/2017 1:26 PM FIELD SERVICE ENGINEER): Obesity is unchanged. Discussed the patient's BMI. [...] 10/16/2018 Assessment & Plan (05/02/2017 1:25 PM FIELD SERVICE ENGINEER): Reviewed all labsredults - possible low normal [...] Comments Blood Pressure 138/88 04/26/2022 11:36 AM FIELD SERVICE ENGINEER Pulse 91 04/26/2022 10:57 AM FIELD SERVICE ENGINEER Temperature - - Respiratory Rate 16 04/26/2022 10:5 7 AM FIELD SERVICE ENGINEER Oxygen Saturation - - Inhaled Oxygen Concentration - - Weight 110.9 kg (244 lb 6.4 oz) 023 10:57 AM FIELD SERVICE ENGINEER Height 170.2 cm (5' 7) 04/26/2022 10:5 7 AM FIELD SERVICE ENGINEER Body Mass Index 38.28 04/26/2022 10:57 AM FIELD SERVICE ENGINEER Plan of Treatment Health Maintenance Due Date [...] eGFR 05/10/2023 05/10/2022, 04/05, 01/19/2021 Influenza Vaccine (Season Ended) 2024 HPV Vaccines Aged Out No longer eligi ble based on patient's age to complete this topic Procedures Procedure Name Priority Date/Time Associated Diagnosis Comments EGFR Routine 05/10/2022 8:43 AM FIELD SERVICE ENGINEER Hypertension associated with diabetes (HCC) Hyperkalemia LIPID PANEL Routine 04/26/2022 11:52 AM FIELD SERVICE ENGINEER Type 1 diabetes mellitus with hyperglycemia (HCC) ALBUMIN CREATININE RATIO, URINE Routine 04/26/2022 11:52 AM FIELD SERVICE ENGINEER Type 1 diabetes mellitus with hyperglycemia (HCC) Hypertension associated with diabetes (HCC) POCT HEMOGLOBIN A1C Routine 04/26/2022 1 1:08 AM FIELD SERVICE ENGINEER Type 1 diabetes mellitus with hyperglycemia (HCC) THYROID FUNCTION CASCADE Routine 01/19/2021 2:58 PM CDT Type 1 diabetes mellitus with hyperglycemia (HCC) DIABETIC EYE EXAM Routine 04/14/2020 from Last 3 Months or Most Recently Relevant to Health Maintenance Results * eGFR (05/10/2022 8:43 AM FIELD SERVICE ENGINEER) eGFR 39 mL/min/1. 73 m2 O[facility] JOHNSON [...] last reviewed 2021. Blood 05/10/2022 8:43 AM FIELD SERVICE ENGINEER 05/10/2022 4:12 PM FIELD SERVICE ENGINEER Annette Pitts LAB ENGINEER LAB BLOOD ORDERABLES Neena l Result Performing Organization Address [facility] de Phone Number OMAR [address] [employer] [place] [address] * (ABNORMAL) Albumin Creatinine Ratio, Urine (04/26/2022 11:52 AM FIELD SERVICE ENGINEER) Albumin Ur 3,167.1 mg/L [facility] Comment: Interpretive Data No reference range established. Current interpretive data was last revised 2018. Creatinine Ur 74.6 mg/dL [facility] Comment: Interpretive Data No reference range established. Current interpretive data was last revised 2018. Albumin Creatinine Ratio, Ur 4,245(H) 1 - 29 mg/g [facility] Urine 04/26/2022 11:5 2 AM FIELD SERVICE ENGINEER 04/26/2022 8:36 PM FIELD SERVICE ENGINEER us Annette Pitts LAB ENGINEER LAB URINE ORDERABLES Neena l Result Performing Organization Address [facility] Co de Phone Number OMAR [address] [place] [address] * (ABNORMAL) Lipid panel (04/26/2022 11:52 AM FIELD SERVICE ENGINEER) Cholesterol 270(H) 30 - 199 mg/dL OMAR [...] Pediatrics 2011;128:S213 2. NCEP Expert Panel. Circulation 2003;110:227 Current Interpretive Data was last revised on [...] last revised on 2017. Chol/HDL ratio 6 [facility] Blood 04/26/2022 11:5 2 AM FIELD SERVICE ENGINEER 04/26/2022 8:36 PM FIELD SERVICE ENGINEER Narrative [facility] - 04/26/2022 9:10 PM FIELD SERVICE ENGINEER These lab test should be done fasting. This means do not eat or drink for at least 12 hours prior to getting your blood drawn. us Annette Pitts NP LAB BLOOD ORDERABLES Neena l Result OMAR [address] [place] [address] * POCT hemoglobin A1c (04/26/2022 11:08 AM FIELD SERVICE ENGINEER) Hemoglobin A1C, POC 6.8 Blood 04/26/2022 11:0 8 AM FIELD SERVICE ENGINEER us Annette Pitts LAB ENGINEER POINT OF CARE TEST ORDERA BLES Final Result * TSH reflex to free T4 (01/19/2021 2:58 PM CDT) TSH 2.06 0.30 - 4.20 mcIUnit/mL [facility] Blood 01/19/2021 2:58 PM CDT 01/19/2021 8:50 PM CDT Belgica Barth MD LAB BLOOD ORDERABLE S Final Result [facility]NSON [address] [place] [address] * Diabetic Eye Exam (04/14/2020) us Historical Provider HEALTH MAINTENANCE Final Result from Last 3 Months or Most Recently Relevant to Health Maintenance Insurance [facility] PLAN DONA WINC[facility] Care Teams Director Digital Marketing Relationship Specialty Start Date End Date No, Physician PCP - General 10/01/21 Abdulkadir Leon MD Consulting Physician Urology 10/29/19
[2024-08-29 16:35] LABS: Anion Gap 12 mmol/L (4-12); Blood Urea Nitrogen 71 mg/dL (9-20); Carbon Dioxide 14 mmol/L (22-30); Chloride 111 mmol/L (98-107); Estimated Glomerular Filt Rate 5; Glucose 105 mg/dL (65-110); Potassium 4.9 mmol/L (3.4-5.0); Sodium 137 mmol/L (137-145)
[2024-08-29 17:11] LABS: Hepatitis B Surface Antigen Negative (Negative)
[2024-08-29 17:34] LABS: Hepatitis B Surface Anti Res Positive
[2024-08-31 04:23] LABS: Hepatitis B Core Ab Total NON-REACTIVE (NON-REACTIVE)
[2024-09-02 17:57] LABS: NIL 0.05 IU/mL; Quantiferon TB Plus, 1T POSITIVE (NEGATIVE); TB1-NIL 5.59 IU/mL; TB2-NIL 6.26 IU/mL
== END 2024-08-29 15:56 | disposition home or self-care (01) ==
PROVIDERS: Visit Provider Internal Medicine Nephrology
DX: N18.5 Chronic kidney disease, stage 5 (principal); R53.83 Other fatigue; R74.8 Abnormal levels of other serum enzymes; R80.9 Proteinuria, unspecified
CPT/HCPCS: 36415; 80048; 86480; 86704; 86706; 87340

== ENCOUNTER 2024-09-04 16:52 | Outpatient (CLI) | payer BC, SELFPAY ==
--- NOTE | ~2024-09-04 | XR_ITS ---
EXAMINATION: XR chest 2V 09/04/2024 17:10 INDICATION: Positive reaction to tuberculosis test. PROCEDURE: 2 view chest COMPARISON: 06/21/2020 FINDINGS: The lungs are clear. The cardiomediastinal silhouette is within normal limits. There are no pleural effusions. There is no pneumothorax suspected. IMPRESSION: 1: NO ACUTE CARDIOPULMONARY DISEASE. Reviewed, dictated and finalized at location A.
--- OUTSIDE RECORDS SUMMARY | 2024-09-04 16:56 | XMS_ITS | Clinical Summary ---
Author Organization [facility] Address [address] [place] [address] Phone Care Team Providers Care Rack Loader Name Role Phone Piper Mohr APRN, JESSICA Primary Care Pro vider Allergies No known active allergies Medications sucralfate (CARAFATE) 1 GM/10ML Suspension Take 10 mL by mouth every 6 hours. 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 Gender Identity Not on file Sexual Orientation [...] 03/25/2018 018, 10/26/2016, 03/25/2016, Additional history exists SARS-COV-2 Immunization ( season) 2023 10/29/2020, 08/15/2020 Influenza Immunization (Season Ended) 2024 Respiratory Syncytial Virus (RSV) Immunization (Adult) (1 - 1-dose 75+ series) 02/10/2068 DTaP/Tdap/Td Immunization Discontinued 04/12/1997 Human Papillomavirus (HPV) Immunization Aged Out No longer eligible based on patient's age to complete this topic Meningococcal Immunization (ACWY) Aged Out No longer [...] - 6 09/23/2017 10:3 6 AM CDT Piper Mohr NEONATAL SURGEON, HOUSEKEEPING SUPERVISOR HOTEL POINT OF CARE RMOY TING (MANUAL) Final Result * (ABNORMAL) CMP (COMPREHENSIVE METABOLIC PANEL) (11/02/2016 8:39 AM CDT) SODIUM 137 136 - 145 mmol/L 11/02/2016 9:31 AM CDT [facility] POTASSIUM 3.9 3.5 - 5.1 mmol/L 11/02/2016 9:31 AM CDT [facility] Comment: Specimen is hemolyzed. In vitro hemolysis could affect results. Clinical correlation advised. CHLORIDE 105 98 - 107 mmol/L 11/02/2016 9:31 AM CDT [facility] CO2, VENOUS 23 22 - 30 mmol/L 11/02/2016 9:31 AM CDT [facility] ANION GAP 9.0 <18.0 mmol/L 11/02/2016 9:31 AM CDT [facility] GLUCOSE 121(H) 70 - 99 mg/dL 11/02/2016 9:31 AM CDT [facility] BUN 8(L) 9 - 21 mg/dL 11/02/2016 9:31 AM CDT [facility] CREATININE, BLOOD 0.80 0.70 - 1.30 mg/dL 11/02/2016 9:31 AM CDT [facility] BUN/CREATININE RATIO 10(L) 12 - 20 ratio 11/02/2016 9:31 AM CDT [facility] TOTAL PROTEIN 7.5 6.3 - 8.2 g/dL 11/02/2016 9:31 AM CDT [facility] Comment: Specimen is hemolyzed. In vitro hemolysis could affect results. Clinical correlation advised. ALBUMIN 3.7 3.5 - 5.0 g/dL 11/02/2016 9:31 AM CDT [facility] A/G RATIO 1.0 1.0 - 2.2 11/02/2016 9:31 AM CDT [facility] CALCIUM 9.0 8.4 - 10.2 mg/dL 11/02/2016 9:31 AM CDT [facility] T BILI 0.2 0.2 - 1.2 mg/dL 11/02/2016 9:31 AM CDT [facility] Comment: Specimen is hemolyzed. In vitro hemolysis could affect results. Clinical correlation advised. SGOT (AST) 25 5 - 34 U/L 11/02/2016 9:31 AM CDT [facility] Comment: Specimen is hemolyzed. In vitro hemolysis could affect results. Clinical correlation advised. SGPT (ALT) 33 0 - 55 U/L 11/02/2016 9:31 AM CDT [facility] ALKALINE PHOSPHATASE 82 40 - 150 U/L 11/02/2016 9:31 AM CDT [facility] GFR, EST. NONAFRICAN >60 >=60 11/02/2016 9:31 AM T [facility] GFR, EST. >60 >=60 11/02/2016 9:31 AM CDT [facility] Comment: Creatinine Clearance is the preferred criteria for selecting drug dose adjustments in renally impaired patients. The GFR is provided as additional pertinent clinical information. GFR is reported in mL/min/1.73 sq m. Blood specimen (specimen) Venipuncture / Unknown 11/02/2016 8:39 AM CDT 11/02/2016 9:04 AM CDT Ray Rodriguez MD CHEMISTRY ORDERABLES Final Result [facility] [address] [place] [address], * DILATED EYE EXAM (08/15/2014) Leodan Costa OD PROCEDURE/MINOR SURGICAL ORDERAB LES Final Result from Last 3 Months or Most Recently Relevant to Health Maintenance Insurance MEDICAID [place] Care Teams Rack Loader Relationship Specialty Start Date End Date Piper Mohr APRN, JESSICA PCP - General Certified Nurse Practitioner 06/12/14
--- OUTSIDE RECORDS SUMMARY | 2024-09-04 16:56 | XMS_ITS | Clinical Summary ---
Author Organization [facility] [address] [place] [address] Care Team Providers Care Supervisor Garment Manufacturing Name Role Phone Abdulkadir Leon MD Unavailable [phone] No, Physician Primary Care Provider [phone] Allergies No known active allergies Medications ONETOUCH [...] under the skin every 7 days Lot: [id number] Exp: 03/2023 3 pens 3 mL 1 [...] times a day before meals Sample lot [id number] exp 06/02/2023 x 1 pen 3 mL 3 Active semaglutide (OZEMPIC) 0.25 mg or 0.5 mg(2 mg/1.5 mL) pen injector injectionIndicatio ns:Type 1 diabetes mellitus with hyperglycemia (HCC) Inject 0.5 mg under the skin every 7 days [id number] exp 09/01/2024 x 2 pens 3 mL [...] 04/26/2022 Assessment & Plan (04/26/2022 11:43 AM MOVIE CRITIC): Discussed healthy diet and importance of regular physical activity (20- 30min/day, 150min/wk). Has lost 19# since last appt 09/2021. He has changed diet & increased activity. Persistent proteinuria 10/01/2021 Assessment & Plan (10/01/2021 4:16 PM CDT): Referral placed to nephrology. Poor compliance with medication 01/19/2021 Hypertension associated with diabetes 12/27/2016 Assessment & Plan (04/26/2022 12:02 PM MOVIE CRITIC): Chronic problem, currently taking lisinopril/hctz 40/50mg. Will [...] weeks Assessment & Plan (03/17/2020 3:04 PM MOVIE CRITIC): Hypertension is improving with treatment Continue current [...] appointment. Assessment & Plan (04/30/2019 1:42 PM MOVIE CRITIC): Hypertension is improving with treatment. Continue current [...] appointment. Assessment & Plan (05/02/2017 1:26 PM MOVIE CRITIC): Hypertension is improving with treatment. Continue current [...] loss Assessment & Plan (03/17/2020 3:06 PM MOVIE CRITIC): Continue statin therapy Assessment & Plan (01/01/2020 12:55 PM CDT): Continue statin therapy Assessment & Plan (11/04/2019 9:02 PM CDT): Continue statin therapy Assessment & Plan (06/11/2019 12:55 PM CDT): Continue statin therapy Assessment & Plan (04/30/2019 1:41 PM MOVIE CRITIC): Continue statin therapy Assessment & Plan (10/16/2018 1:08 PM CDT): Improving Continue statin therapy Will follow up in 6 months Assessment & Plan (09/04/2018 10:37 PM CDT): Lipid abnormalities are worsening. Nutritional counseling was provided. and Pharmacotherapy as ordered. Lipids will be reassessed in 6 months. Assessment & Plan (05/02/2017 1:24 PM MOVIE CRITIC): On statin therapy Advised low fat/chol diet [...] 12/04 Assessment & Plan (04/26/2022 11:54 AM MOVIE CRITIC): Chronic problem, great improvement. Now at goal. [...] copay Assessment & Plan (03/17/2020 3:07 PM MOVIE CRITIC): Chronic, uncontrolled , worsening HbA1c - 10.7 [...] orders. Assessment & Plan (04/30/2019 1:41 PM MOVIE CRITIC): Diabetes is improving slowly, but not as [...] month. Assessment & Plan (05/02/2017 1:24 PM MOVIE CRITIC): Lab Results Component Value Date HGBA1C 11.7 [...] regular exercise. Body mass index 40.0-44.9, adult ([facility]) 10/01/2021 04/26/2022 Class 3 severe [...] weekly Assessment & Plan (03/17/2020 3:05 PM MOVIE CRITIC): slowly improving possible due to ozempic effect [...] weekly Assessment & Plan (04/30/2019 1:41 PM MOVIE CRITIC): Chronic, worsening Discussed about healthy lifestyle habits [...] discussed. Assessment & Plan (05/02/2017 1:26 PM MOVIE CRITIC): Obesity is unchanged. Discussed the patient's BMI. [...] 10/16/2018 Assessment & Plan (05/02/2017 1:25 PM MOVIE CRITIC): Reviewed all labsredults - possible low normal [...] Comments Blood Pressure 138/88 04/26/2022 11:36 AM MOVIE CRITIC Pulse 91 04/26/2022 10:57 AM MOVIE CRITIC Temperature - - Respiratory Rate 16 04/26/2022 10:5 7 AM MOVIE CRITIC Oxygen Saturation - - Inhaled Oxygen Concentration - - Weight 110.9 kg (244 lb 6.4 oz) 023 10:57 AM MOVIE CRITIC Height 170.2 cm (5' 7) 04/26/2022 10:5 7 AM MOVIE CRITIC Body Mass Index 38.28 04/26/2022 10:57 AM MOVIE CRITIC Plan of Treatment Health Maintenance Due Date [...] Diagnosis Comments EGFR Routine 05/10/2022 8:43 AM MOVIE CRITIC Hypertension associated with diabetes (HCC) Hyperkalemia LIPID PANEL Routine 04/26/2022 11:52 AM MOVIE CRITIC Type 1 diabetes mellitus with hyperglycemia (HCC) ALBUMIN CREATININE RATIO, URINE Routine 04/26/2022 11:52 AM MOVIE CRITIC Type 1 diabetes mellitus with hyperglycemia (HCC) Hypertension associated with diabetes (HCC) POCT HEMOGLOBIN A1C Routine 04/26/2022 1 1:08 AM MOVIE CRITIC Type 1 diabetes mellitus with hyperglycemia (HCC) THYROID FUNCTION CASCADE Routine 01/19/2021 2:58 PM CDT Type 1 diabetes mellitus with hyperglycemia (HCC) DIABETIC EYE EXAM Routine 04/14/2020 from Last 3 Months or Most Recently Relevant to Health Maintenance Results * eGFR (05/10/2022 8:43 AM MOVIE CRITIC) eGFR 39 mL/min/1. 73 m2 O[facility] JOHNSON [...] last reviewed 2021. Blood 05/10/2022 8:43 AM MOVIE CRITIC 05/10/2022 4:12 PM MOVIE CRITIC Annette Pitts AUTOMOBILE TESTER LAB BLOOD ORDERABLES Neena l Result Performing Organization Address [facility] de Phone Number OMAR [address] [place] [address] * (ABNORMAL) Albumin Creatinine Ratio, Urine (04/26/2022 11:52 AM MOVIE CRITIC) Albumin Ur 3,167.1 mg/L [facility] Comment: Interpretive Data No reference range established. Current interpretive data was last revised 2018. Creatinine Ur 74.6 mg/dL [facility] Comment: Interpretive Data No reference range established. Current interpretive data was last revised 2018. Albumin Creatinine Ratio, Ur 4,245(H) 1 - 29 mg/g [facility] Urine 04/26/2022 11:5 2 AM MOVIE CRITIC 04/26/2022 8:36 PM MOVIE CRITIC us Annette Pitts AUTOMOBILE TESTER LAB URINE ORDERABLES Neena l Result Performing Organization Address [facility] Co de Phone Number OMAR [address] [place] [employer] [address] * (ABNORMAL) Lipid panel (04/26/2022 11:52 AM MOVIE CRITIC) Cholesterol 270(H) 30 - 199 mg/dL O[facility] [...] last revised on 2017. Chol/HDL ratio 6 [facility] Blood 04/26/2022 11:5 2 AM MOVIE CRITIC 04/26/2022 8:36 PM MOVIE CRITIC Narrative [facility] - 04/26/2022 9:10 PM MOVIE CRITIC These lab test should be done fasting. This means do not eat or drink for at least 12 hours prior to getting your blood drawn. us Annette Pitts NP LAB BLOOD ORDERABLES Neena l Result OMAR [address] [place] [address] * POCT hemoglobin A1c (04/26/2022 11:08 AM MOVIE CRITIC) Hemoglobin A1C, POC 6.8 Blood 04/26/2022 11:0 8 AM MOVIE CRITIC us Annette Pitts AUTOMOBILE TESTER POINT OF CARE TEST ORDERA BLES Final Result * TSH reflex to free T4 (01/19/2021 2:58 PM CDT) TSH 2.06 0.30 - 4.20 mcIUnit/mL [facility] Blood 01/19/2021 2:58 PM CDT 01/19/2021 8:50 PM CDT Belgica Barth MD LAB BLOOD ORDERABLE S Final Result [facility]NS[facility] [address] [place] [address] * Diabetic Eye Exam (04/14/2020) us Historical Provider HEALTH MAINTENANCE Final Result from Last 3 Months or Most Recently Relevant to Health Maintenance Insurance [facility] PLAN DONA WINCHESTER [facility] Care Teams Supervisor [employer] Relationship Specialty Start Date End Date No, Physician PCP - General 10/01/21 Abdulkadir Leon MD Consulting Physician Urology 10/29/19
--- OUTSIDE RECORDS SUMMARY | 2024-09-04 16:56 | XMS_ITS | Referral Summary ---
Author Organization [facility] [address] [place] [id number] Care Team Providers Care Apparel Fashion Designer Name Role Phone Abdulkadir Leon MD Unavailable [phone] No, Physician Primary Care Provider [phone] Allergies No known active allergies Medications ONETOUCH [...] under the skin every 7 days Lot: [id number] Exp: 03/2023 3 pens 3 mL 1 [...] times a day before meals Sample lot [id number] exp 06/02/2023 x 1 pen 3 mL 3 Active semaglutide (OZEMPIC) 0.25 mg or 0.5 mg(2 mg/1.5 mL) pen injector injectionIndicatio ns:Type 1 diabetes mellitus with hyperglycemia (HCC) Inject 0.5 mg under the skin every 7 days [id number] exp 09/01/2024 x 2 pens 3 mL [...] 04/26/2022 Assessment & Plan (04/26/2022 11:43 AM VISOR INSTALLER): Discussed healthy diet and importance of regular physical activity (20- 30min/day, 150min/wk). Has lost 19# since last appt 09/2021. He has changed diet & increased activity. Persistent proteinuria 10/01/2021 Assessment & Plan (10/01/2021 4:16 PM CDT): Referral placed to nephrology. Poor compliance with medication 01/19/2021 Hypertension associated with diabetes 12/27/2016 Assessment & Plan (04/26/2022 12:02 PM VISOR INSTALLER): Chronic problem, currently taking lisinopril/hctz 40/50mg. Will [...] weeks Assessment & Plan (03/17/2020 3:04 PM VISOR INSTALLER): Hypertension is improving with treatment Continue current [...] appointment. Assessment & Plan (04/30/2019 1:42 PM VISOR INSTALLER): Hypertension is improving with treatment. Continue current [...] appointment. Assessment & Plan (05/02/2017 1:26 PM VISOR INSTALLER): Hypertension is improving with treatment. Continue current [...] loss Assessment & Plan (03/17/2020 3:06 PM VISOR INSTALLER): Continue statin therapy Assessment & Plan (01/01/2020 12:55 PM CDT): Continue statin therapy Assessment & Plan (11/04/2019 9:02 PM CDT): Continue statin therapy Assessment & Plan (06/11/2019 12:55 PM CDT): Continue statin therapy Assessment & Plan (04/30/2019 1:41 PM VISOR INSTALLER): Continue statin therapy Assessment & Plan (10/16/2018 1:08 PM CDT): Improving Continue statin therapy Will follow up in 6 months Assessment & Plan (09/04/2018 10:37 PM CDT): Lipid abnormalities are worsening. Nutritional counseling was provided. and Pharmacotherapy as ordered. Lipids will be reassessed in 6 months. Assessment & Plan (05/02/2017 1:24 PM VISOR INSTALLER): On statin therapy Advised low fat/chol diet [...] 12/04 Assessment & Plan (04/26/2022 11:54 AM VISOR INSTALLER): Chronic problem, great improvement. Now at goal. [...] copay Assessment & Plan (03/17/2020 3:07 PM VISOR INSTALLER): Chronic, uncontrolled , worsening HbA1c - 10.7 [...] orders. Assessment & Plan (04/30/2019 1:41 PM VISOR INSTALLER): Diabetes is improving slowly, but not as [...] month. Assessment & Plan (05/02/2017 1:24 PM VISOR INSTALLER): Lab Results Component Value Date HGBA1C 11.7 [...] regular exercise. Body mass index 40.0-44.9, adult ([facility]) 10/01/2021 04/26/2022 Class 3 severe obesity [...] weekly Assessment & Plan (03/17/2020 3:05 PM VISOR INSTALLER): slowly improving possible due to ozempic effect [...] weekly Assessment & Plan (04/30/2019 1:41 PM VISOR INSTALLER): Chronic, worsening Discussed about healthy lifestyle habits [...] discussed. Assessment & Plan (05/02/2017 1:26 PM VISOR INSTALLER): Obesity is unchanged. Discussed the patient's BMI. [...] 10/16/2018 Assessment & Plan (05/02/2017 1:25 PM VISOR INSTALLER): Reviewed all labsredults - possible low normal [...] Comments Blood Pressure 138/88 04/26/2022 11:36 AM VISOR INSTALLER Pulse 91 04/26/2022 10:57 AM VISOR INSTALLER Temperature - - Respiratory Rate 16 04/26/2022 10:5 7 AM VISOR INSTALLER Oxygen Saturation - - Inhaled Oxygen Concentration - - Weight 110.9 kg (244 lb 6.4 oz) 023 10:57 AM VISOR INSTALLER Height 170.2 cm (5' 7) 04/26/2022 10:5 7 AM VISOR INSTALLER Body Mass Index 38.28 04/26/2022 10:57 AM VISOR INSTALLER Plan of Treatment Not on file Procedures Procedure Name Priority Date/Time Associated Diagnosis Comments EGFR Routine 05/10/2022 8:43 AM VISOR INSTALLER Hypertension associated with diabetes (HCC) Hyperkalemia LIPID PANEL Routine 04/26/2022 11:52 AM VISOR INSTALLER Type 1 diabetes mellitus with hyperglycemia (HCC) ALBUMIN CREATININE RATIO, URINE Routine 04/26/2022 11:52 AM VISOR INSTALLER Type 1 diabetes mellitus with hyperglycemia (HCC) Hypertension associated with diabetes (HCC) POCT HEMOGLOBIN A1C Routine 04/26/2022 1 1:08 AM VISOR INSTALLER Type 1 diabetes mellitus with hyperglycemia (HCC) THYROID FUNCTION CASCADE Routine 01/19/2021 2:58 PM CDT Type 1 diabetes mellitus with hyperglycemia (HCC) DIABETIC EYE EXAM Routine 04/14/2020 from Last 3 Months or Most Recently Relevant to Health Maintenance Results * eGFR (05/10/2022 8:43 AM VISOR INSTALLER) eGFR 39 mL/min/1. 73 m2 OMAR JOHNSON [...] last reviewed 2021. Blood 05/10/2022 8:43 AM VISOR INSTALLER 05/10/2022 4:12 PM VISOR INSTALLER us Annette Pitts CUSTOMER QUALITY SPECIALIST LAB BLOOD ORDERABLES Neena l Result Performing Organization Address City/[facility]/ZIP Co de Phone Number OMAR [id number] [address] Department [place] [address] * (ABNORMAL) Albumin Creatinine Ratio, Urine (04/26/2022 11:52 AM VISOR INSTALLER) Albumin Ur 3,167.1 mg/L OMAR Comment: Interpretive Data No reference range established. Current interpretive data was last revised 2018. Creatinine Ur 74.6 mg/dL OMAR JOHNSON Comment: Interpretive Data No reference range established. Current interpretive data was last revised 2018. Albumin Creatinine Ratio, Ur 4,245(H) 1 - 29 mg/g OMAR Urine 04/26/2022 11:5 2 AM VISOR INSTALLER 04/26/2022 8:36 PM VISOR INSTALLER us Annette Pitts CUSTOMER QUALITY SPECIALIST LAB URINE ORDERABLES Neena l Result OMAR JOHNSON [id number] [facility] Department [place] [address] * (ABNORMAL) Lipid panel (04/26/2022 11:52 AM VISOR INSTALLER) Cholesterol 270(H) 30 - 199 mg/dL OMAR [...] 6 OMAR Blood 04/26/2022 11:5 2 AM VISOR INSTALLER 04/26/2022 8:36 PM VISOR INSTALLER Narrative OMAR JOHNSON - 04/26/2022 9:10 PM VISOR INSTALLER These lab test should be done fasting. This means do not eat or drink for at least 12 hours prior to getting your blood drawn. us Annette Pitts NP LAB BLOOD ORDERABLES Neena l Result OMAR [address] [address] Department [place] [address] * POCT hemoglobin A1c (04/26/2022 11:08 AM VISOR INSTALLER) Hemoglobin A1C, POC 6.8 Blood 04/26/2022 11:0 8 AM VISOR INSTALLER us Annette Pitts CUSTOMER QUALITY SPECIALIST POINT OF CARE TEST ORDERA BLES Final Result * TSH reflex to free T4 (01/19/2021 2:58 PM CDT) TSH 2.06 0.30 - 4.20 mcIUnit/mL SHANNADUANE CH Blood 01/19/2021 2:58 PM CDT 01/19/2021 8:50 PM CDT us Belgica Barht MD LAB BLOOD ORDERABLE S Final Result OMAR [address] [address] Department [place] [address] * Diabetic Eye Exam (04/14/2020) us Historical Provider HEALTH MAINTENANCE Final Result from Last 3 Months or Most Recently Relevant to Health Maintenance Insurance [place] [id number] [id number] Care Teams Apparel Fashion Designer Relationship Specialty Start Date End Date No, Physician PCP - General 10/01/21 Abdulkadir Leon MD Consulting Physician Urology 10/29/19
== END 2024-09-04 16:53 | disposition home or self-care (01) ==
PROVIDERS: Visit Provider Internal Medicine Nephrology
DX: N18.5 Chronic kidney disease, stage 5 (principal); R76.11 Nonspecific reaction to tuberculin skin test without active tuberculosis; R80.9 Proteinuria, unspecified
CPT/HCPCS: 71046